=== PATIENT | female | born 1950 | race Caucasian/White ===

== ENCOUNTER 2020-10-25 09:49 | Inpatient (IN) ==
[2020-10-25] MEDS ORDERED: STAT IV STA (11:32)
[2020-10-25] MEDS ORDERED: EPINEPHrine INJ 1 MG/ML AMP IM PRN (11:32)
[2020-10-25] MEDS ORDERED: diphenhydrAMINE 50 MG/ML VIAL IV PRN (11:32)
[2020-10-25] MEDS ORDERED: ONDANSETRON INJ 2 MG/ML 2 ML VIAL IV PRN ×2 (11:32→18:38)
[2020-10-25] MEDS ORDERED: methylPREDNISolone 125 MG/2 ML VIAL IV PRN (11:32)
[2020-10-25] MEDS ORDERED: ACETAMINOPHEN 325 MG TAB PO PRN (11:32)
[2020-10-25] MEDS ORDERED: ALBUTEROL 0.083% NEBU SOLN 3 ML VIAL NEB STA ×2 (11:34→14:08)
--- NOTE | 2020-10-25 11:41 | Emergency Department Note ---
History of Present Illness General Chief complaint: Shortness of Breath/Dyspnea Stated complaint: COV+( OF WEDNESDAY) LOW OXYGEN LEVELS,SOB Time Seen by Provider: 10/25/20 11:15 History of Present Illness Maximum Pain Intensity: 0 This patient is a 69-year-old female who presents ambulatory to the emergency department for evaluation of difficulty breathing that started to get progressively worse particularly last night. The patient was diagnosed with Covid on 10/21, however she has been symptomatic since at least 10/15. She has been experiencing body aches and fever. Her cough and breathing have significantly worsened in the last 24 hours. The cough is nonproductive. She has tried Tylenol with minimal relief of her symptoms. She denies any underlying lung disease. She does not smoke. Lying flat seems to make her breathing worse. She has been self isolating. Home Medications Medication Instructions Recorded Confirmed Type losartan 100 mg tablet (Cozaar) 100 mg PO QAM 08/22/18 10/25/20 History multivitamin (Daily Multi-Vitamin) 1 tab PO QAM 08/22/18 10/25/20 History amlodipine 5 mg tablet (Norvasc) 5 mg PO QDD 10/25/20 10/25/20 History aspirin 81 mg tablet,delayed 81 mg PO HS 10/25/20 10/25/20 History release (Aspirin Low Dose) atenolol 25 mg tablet (Tenormin) 25 mg PO QAM 10/25/20 10/25/20 History atorvastatin 40 mg tablet (Lipitor) 40 mg PO QAM 10/25/20 10/25/20 History cinnamon bark 500 mg capsule 500 mg PO DAILY 10/25/20 10/25/20 History (Cinnamon) hydrochlorothiazide 25 mg tablet 25 mg PO QAM 10/25/20 10/25/20 History metformin 1,000 mg tablet 1,000 mg PO BID 10/25/20 10/25/20 History omega-3 fatty acids 1,000 mg PO BID 10/25/20 10/25/20 History triamcinolone acetonide 0.1 % 1 applic TOPICAL BID 10/25/20 10/25/20 History topical cream (Triderm) Allergies Allergy/AdvReac Type Severity Reaction Status Date / Time No Known Allergies Allergy Unknown ? Verified 10/25/20 14:49 Past Med/Surg History Medical History Chronic diastolic heart failure Diabetes mellitus, type II HTN (hypertension) Left bundle branch block Surgical History H/O aortic valve replacement prosthetic valve in 2008 at [facility] [place] S/P hip replacement Family History Other Heart disease Social History Smoking Status: Never smoker Hx Alcohol Use: No Hx Substance Use: No marital status: current occupational status: employed Feels Safe at Home: Yes Review of Systems A total of 10 systems reviewed and were otherwise negative Physical Exam Vital Signs Vital Signs - 24 hr 10/25/20 10:10 10/25/20 10:15 10/25/20 12:08 Temperature 36.9 C Temperature Source Temporal Artery Scan Pulse Rate 82 Pulse Rate [Apical] 76 Pulse Rate from SpO2 Sensor Respiratory Rate 24 18 Respiratory Effort / Characteristics Non-Labored Spontaneous Blood Pressure 153/76 H Blood Pressure Mean 101 Pulse Oximetry 88 L 2 L 94 Oxygen Delivery Method Room Air Nasal Cannula Nasal Cannula Oxygen Flow Rate 88 1 Sepsis Recent Fever Within 48 Hours No Sepsis New/Unexplained Change in Mental Status N/A Sepsis Action Taken by Nursing No Action Required 10/25/20 12:47 10/25/20 14:03 10/25/20 14:04 Temperature Temperature Source Pulse Rate 85 79 Pulse Rate [Apical] Pulse Rate from SpO2 Sensor 85 79 Respiratory Rate 19 18 Respiratory Effort / Characteristics Blood Pressure 133/74 Blood Pressure Mean 93 Pulse Oximetry 92 89 L 90 Oxygen Delivery Method Nasal Cannula Room Air Nasal Cannula Oxygen Flow Rate 1 1 Sepsis Recent Fever Within 48 Hours Sepsis New/Unexplained Change in Mental Status Sepsis Action Taken by Nursing 10/25/20 14:08 10/25/20 14:26 10/25/20 14:31 Temperature Temperature Source Pulse Rate 79 Pulse Rate [Apical] 77 Pulse Rate from SpO2 Sensor 80 Respiratory Rate 18 16 Respiratory Effort / Characteristics Non-Labored Spontaneous Blood Pressure 126/60 Blood Pressure Mean 82 Pulse Oximetry 95 96 Oxygen Delivery Method Nasal Cannula Nasal Cannula Nasal Cannula Oxygen Flow Rate 2 2 2 Sepsis Recent Fever Within 48 Hours Sepsis New/Unexplained Change in Mental Status Sepsis Action Taken by Nursing 10/25/20 15:00 Temperature Temperature Source Pulse Rate 81 Pulse Rate [Apical] Pulse Rate from SpO2 Sensor 81 Respiratory Rate 21 Respiratory Effort / Characteristics Blood Pressure 122/79 Blood Pressure Mean 93 Pulse Oximetry 92 Oxygen Delivery Method Nasal Cannula Oxygen Flow Rate 2 Sepsis Recent Fever Within 48 Hours Sepsis New/Unexplained Change in Mental Status Sepsis Action Taken by Nursing see below Constitutional WD/WN, vitals as above Eyes EOM intact bilaterally ENMT external ear and nose normal, oropharynx normal Neck trachea midline Respiratory Crackles at the bases bilaterally. No significant wheezing noted. Cardiovascular RRR, no murmur, no edema Gastrointestinal (Abdomen) normal bowel sounds, soft, nontender, no hepatosplenomegaly Musculoskeletal no cyanosis or clubbing, extremities motor strength 5/5 Skin no rashes, warm and dry Neurologic Alert and oriented x3. No focal motor deficits. Psychiatric Acting appropriately Course Course Patient was seen and examined Vital signs including blood pressure were reviewed medications list was verified with patient Labs were obtained, and a saline lock was established The patient was ordered an albuterol treatment Imaging was performed and reviewed The case was discussed with my supervising physician who is in agreement with my plan. The case was also discussed with pharmacy. The patient was reassessed. We had a lengthy conversation regarding possible monoclonal antibodies. The patient has been symptomatic for over 10 days; therefore, she is technically out of the window to receive antibodies. As the patient is hypoxic and appears to have pneumonitis on the x-ray, we decided hospitalist consultation was warranted. The patient was in agreement. The patient was given 1 further albuterol nebulizer treatment She remained stable in the emergency department. Consultations [facility] Administered Medications Discontinued Medications Acetaminophen (Acetaminophen 325 Mg Tab) 650 mg PO ONCE PRN PRN Reason: Pain/Headache Last Admin: 10/25/20 12:53 Dose: 650 mg Documented by: [id number] Albuterol (Albuterol 0.083% Nebu Soln 3 Ml Vial) 2.5 mg NEB NOW STA Stop: 10/25/20 11:35 Last Admin: 10/25/20 12:07 Dose: 2.5 mg Documented by: [id number] Albuterol (Albuterol 0.083% Nebu Soln 3 Ml Vial) 2.5 mg NEB NOW STA Stop: 10/25/20 14:09 Last Admin: 10/25/20 14:25 Dose: 2.5 mg Documented by: [id number] Bamlanivimab 700 mg/ETESEVIMAB (EUA) 1,400 mg/Sodium Chloride 160 mls @ 310 mls/hr IV NOW ONE; Protocol Stop: 10/25/20 12:23 Last Admin: 10/25/20 14:25 Dose: Not Given Documented by: [id number] Miscellaneous (Stat Iv) 1 ea N/A NOW STA Stop: 10/25/20 11:33 Last Admin: 10/25/20 12:51 Dose: 1 ea Documented by: [id number] Potassium Chloride (Potassium Chloride Crtab 20 Meq Tabcr) 40 meq PO NOW STA Stop: 10/25/20 13:44 Last Admin: 10/25/20 14:05 Dose: 40 meq Documented by: [id number] Sodium Chloride (Sodium Chloride 0.9% 10ml Flush) 30 ml IV ONCE ONE Stop: 10/25/20 12:04 Last Admin: 10/25/20 14:25 Dose: Not Given Documented by: [id number] Medical Decision Making Medical Records Attestation: I reviewed the patient's medical records. Laboratory Data Attestation: I reviewed the patient's lab results. Result diagrams: 10/25/20 12:42 10/25/20 12:42 Lab Results 10/25/20 10/25/20 10/25/20 Range/Units 12:42 12:42 14:52 WBC 3.95 L (4.8-10.8) K/uL RBC 4.56 (4.2-5.4) M/uL Hgb 13.3 (12.0-16.0) g/dL Hct 39.9 (37-47) % MCV 87.5 (80-100) fL MCH 29.2 (25-34) pg MCHC 33.3 (32-36) g/dL RDW Std Deviation 45.2 (36.4-46.3) fL RDW Coeff of Yvrose 14.2 (11.5-14.5) % Plt Count 178 (130-400) K/uL MPV 9.9 (7.4-10.4) fL Immature Gran % (Auto) 3.5 % Neut % (Auto) 70.9 % Lymph % (Auto) 18.2 % [place] % (Auto) 6.8 % Eos % (Auto) 0.3 % Baso % (Auto) 0.3 % Neut # (Auto) 2.80 (1.4-6.5) K/uL Lymph # (Auto) 0.72 L (1.2-3.4) K/uL [place] # (Auto) 0.27 (0.11-0.59) K/uL Eos # (Auto) 0.01 (0-0.5) K/uL Baso # (Auto) 0.01 (0-0.2) K/uL Immature Gran # (Auto) 0.14 H (0.00-0.02) K/uL Sodium 135 L (136-145) mmol/L Potassium 3.1 L (3.5-5.1) mmol/L Chloride 94 L (98-107) mmol/L Carbon Dioxide 35 H (21-32) mmol/L Anion Gap 6.0 (3-11) BUN 14 (7-18) mg/dl Creatinine 0.85 (0.6-1.2) mg/dl Est Cr Clr Drug Dosing 77.1 ml/min Est GFR ( Amer) 81.0 ml/min Est GFR (Non-Af Amer) 69.9 ml/min BUN/Creatinine Ratio 16.5 (10-20) Glucose 136 H (70-99) mg/dl Calcium 9.8 (8.5-10.1) mg/dl Total Bilirubin 0.3 (0.2-1) mg/dl AST 128 H (15-37) U/L ALT 91 H (12-78) U/L Alkaline Phosphatase 66 (45-117) U/L Total Protein 7.6 (6.4-8.2) gm/dl Albumin 2.9 L (3.4-5.0) gm/dl Globulin 4.7 H (2.5-4.0) gm/dl Albumin/Globulin Ratio 0.6 L (0.9-2) COVID-19 Eval Order Covid19 at [facility] SARS-CoV-2 (PCR) (Negative) 10/25/20 Range/Units 14:52 WBC (4.8-10.8) K/uL RBC (4.2-5.4) M/uL Hgb (12.0-16.0) g/dL Hct (37-47) % MCV (80-100) fL MCH (25-34) pg MCHC (32-36) g/dL RDW Std Deviation (36.4-46.3) fL RDW Coeff of Yvrose (11.5-14.5) % Plt Count (130-400) K/uL MPV (7.4-10.4) fL Immature Gran % (Auto) % Neut % (Auto) % Lymph % (Auto) % [place] % (Auto) % Eos % (Auto) % Baso % (Auto) % Neut # (Auto) (1.4-6.5) K/uL Lymph # (Auto) (1.2-3.4) K/uL [place] # (Auto) (0.11-0.59) K/uL Eos # (Auto) (0-0.5) K/uL Baso # (Auto) (0-0.2) K/uL Immature Gran # (Auto) (0.00-0.02) K/uL Sodium (136-145) mmol/L Potassium (3.5-5.1) mmol/L Chloride (98-107) mmol/L Carbon Dioxide (21-32) mmol/L Anion Gap (3-11) BUN (7-18) mg/dl Creatinine (0.6-1.2) mg/dl Est Cr Clr Drug Dosing ml/min Est GFR ( Amer) ml/min Est GFR (Non-Af Amer) ml/min BUN/Creatinine Ratio (10-20) Glucose (70-99) mg/dl Calcium (8.5-10.1) mg/dl Total Bilirubin (0.2-1) mg/dl AST (15-37) U/L ALT (12-78) U/L Alkaline Phosphatase (45-117) U/L Total Protein (6.4-8.2) gm/dl Albumin (3.4-5.0) gm/dl Globulin (2.5-4.0) gm/dl Albumin/Globulin Ratio (0.9-2) COVID-19 Eval Order SARS-CoV-2 (PCR) POSITIVE A* (Negative) Imaging Data Attestation: I personally reviewed and interpreted this imaging study as follows: Radiologist's Impression: Chest X-Ray 10/25/20 11:33 XR chest 1V portable HISTORY: Shortness of breath. covid COMPARISON: Chest 04/17/2008. FINDINGS: The cardiac silhouette is top normal in size. There are poststernotomy changes and a cardiac valve prosthesis. No pneumothorax. No pleural effusions. There is mild perihilar interstitial thickening most pronounced at the lung bases. No focal lung consolidations. IMPRESSION: Mild perihilar interstitial thickening most pronounced at the lung bases. This could be due to mild congestive change or an interstitial pneumonitis. ACT 112: Negative or not required by law. Electronically signed by: Cy Metcalf M.D. 10/25/2020 12:36 PM MDM Narrative Differential diagnosis: Bronchitis, viral pneumonia, bacterial pneumonia, acute respiratory failure, CHF, among others were considered This patient is a 69-year-old female who presents emergency department complaining of worsening cough and shortness of breath. She has been sick for at least 10 days. On exam, she was slightly hypoxic on room air. The patient does not typically wear oxygen. She had crackles in the bases bilaterally. The patient tested positive for Covid on 10/21. Her breathing did not get si gnificantly impaired until last night. She has been taking Tylenol with minimal relief of her symptoms. As the patient has been symptomatic for greater than 10 days, she is not a candidate for monoclonal antibodies. Her x-ray is consistent with pneumonitis. Labs revealed mild hypokalemia, which was repleted in the emergency department. As the patient is hypoxic and has other comorbidities, it was felt that hospitalist consultation was warranted. She will likely be admitted to the hospital for further treatment. Impression & Plan Acute respiratory failure, Pneumonitis, COVID Discharge Plan Visit Data Chief Complaint: Shortness of Breath/Dyspnea Stated Complaint: COV+( OF WEDNESDAY) LOW OXYGEN LEVELS,SOB ED Provider: Luis Pepper ED Midlevel Provider: Megan Amanda Discharge Problem: Acute respiratory failure, Pneumonitis, COVID Patient Disposition: Admitted As Inpatient Forms Stand Alone Forms: [facility] Stevie Prescriptions Prescriptions: No Action multivitamin [Daily Multi-Vitamin] Tablet 1 tab PO QAM RF: 0 losartan [Cozaar] 100 mg tablet 100 mg PO QAM RF: 0 atenolol [Tenormin] 25 mg tablet 25 mg PO QAM RF: 0 amlodipine [Norvasc] 5 mg tablet 5 mg PO QDD RF: 0 atorvastatin [Lipitor] 40 mg tablet 40 mg PO QAM RF: 0 aspirin [Aspirin Low Dose] 81 mg Tablet,Delayed Release (Dr/Ec) 81 mg PO HS RF: 0 triamcinolone acetonide [Triderm] 0.1 % cream 1 applic TOPICAL BID RF: 0 metformin 1,000 mg tablet 1,000 mg PO BID RF: 0 hydrochlorothiazide 25 mg tablet 25 mg PO QAM RF: 0 cinnamon bark [Cinnamon] 500 mg Capsule 500 mg PO DAILY RF: 0 [place] 3 Capsule 1,000 mg PO BID RF: 0 Referrals Referrals: Stan Ybarra MD [Primary Care Provider] -
[2020-10-25] MEDS ORDERED: SODIUM CHLORIDE 0.9% IV ONE (11:53)
[2020-10-25] MEDS ORDERED: BAMLANIVIMAB IV ONE (11:53)
[2020-10-25] MEDS ORDERED: ETESEVIMAB IV ONE (11:53)
[2020-10-25] MEDS ORDERED: 0.2 MICRON FILTER SET 1 EA IV ONE (12:03)
[2020-10-25] MEDS ORDERED: SODIUM CHLORIDE 0.9% 10ML FLUSH IV ONE (12:03)
--- NOTE | 2020-10-25 12:38 | XRay Report ---
XR chest 1V portable HISTORY: Shortness of breath. covid COMPARISON: Chest 04/17/2008. FINDINGS: The cardiac silhouette is top normal in size. There are poststernotomy changes and a cardia c valve prosthesis. No pneumothorax. No pleural effusions. There is mild perihilar interstitial thick ening most pronounced at the lung bases. No focal lung consolidations. IMPRESSION: Mild perihilar interstitial thickening most pronounced at the lung bases. This could be due to mild c ongestive change or an interstitial pneumonitis. ACT 112: Negative or not required by law. Electronically signed by: Cy Metcalf M.D. 10/25/2020 12:36 PM
[2020-10-25 13:15] LABS: Basophils # (auto) 0.01 K/uL (0-0.2); Basophils % (auto) 0.3 %; Eosinophils # (auto) 0.01 K/uL (0-0.5); Eosinophils % (auto) 0.3 %; Hematocrit (blood only) 39.9 % (37-47); Hemoglobin 13.3 g/dL (12.0-16.0); Immature Granulocytes # (auto) 0.14 K/uL (0.00-0.02); Immature Granulocytes % (auto) 3.5 %; Lymphocytes # (auto) 0.72 K/uL (1.2-3.4); Lymphocytes % (auto) 18.2 %; Mean Corpuscular Hemoglobin 29.2 pg (25-34); Mean Corpuscular Hgb Conc 33.3 g/dL (32-36); Mean Corpuscular Volume 87.5 fL (80-100); Mean Platelet Volume 9.9 fL (7.4-10.4); Monocytes # (auto) 0.27 K/uL (0.11-0.59); Monocytes % (auto) 6.8 %; Neutrophils % (auto) 70.9 %; Platelet Count 178 K/uL (130-400); RDW Coefficient of Variation 14.2 % (11.5-14.5); RDW Standard Deviation 45.2 fL (36.4-46.3); Red Blood Count 4.56 M/uL (4.2-5.4); White Blood Count 3.95 K/uL (4.8-10.8)
[2020-10-25 13:34] LABS: Albumin Level 2.9 gm/dl (3.4-5.0); BUN Creatinine Ratio 16.5 (10-20); Calcium 9.8 mg/dl (8.5-10.1); Creatinine Clr Calc Pharmacy 77.1 ml/min; Est GFR (Non-African American) 69.9 ml/min; Potassium 3.1 mmol/L (3.5-5.1)
[2020-10-25 13:37] LABS: Albumin Globulin Ratio 0.6 (0.9-2); Bilirubin,Total 0.3 mg/dl (0.2-1); Globulin 4.7 gm/dl (2.5-4.0); Total Protein 7.6 gm/dl (6.4-8.2)
[2020-10-25] MEDS ORDERED: POTASSIUM CHLORIDE CRTAB 20 MEQ TABCR PO STA (13:43)
--- NOTE | 2020-10-25 14:23 | Emergency Department Note ---
ED Visit Note Patient was seen by our PA/LABOR DELIVERY RN. I was involved in the patient's care and did evaluate the patient myself. I was involved in the care throughout the ER stay. The patient has a COVID-19 pneumonia. She presented hypoxic. She is about 10 days in the illness. She had an outpatient positive Covid result this week. Given her hypoxia, given her chest x-ray findings, hospitalization is warranted. .
--- NOTE | 2020-10-25 15:27 | History & Physical Report ---
Date of Service October 25, 2020 Assessment & Plan (1) Hypoxia: (2) Pneumonia due to COVID-19 virus: Plan: This is a 69-year-old female with PMH of chronic diastolic heart failure, type 2 diabetes, hypertension, dyslipidemia, chronic left bundle branch block, history of aortic valve replacement other medical problems listed below who presents with worsening shortness of breath and cough x10 days and was found to have hypoxia in setting of covid 19 and possible pneumonia. Developed symptoms 10 days ago after exposure to covid + daughter Initially hypoxic at 88%, improved to 92% on 2L NC O2 CXR with possible pneumonia - mild perihilar interstitial thickening most pronounced at the lung bases. This could be due to mild congestive change or an interstitial pneumonitis Will watch patient's volume status closely given history of chronic diastolic heart failure IV dexamethasone 6mg daily, supplemental O2 as needed, incentive spirometry, flutter valve Outside of window for Remdesivir with 10 days of symptoms Covid isolation precautions (3) Hypokalemia: Plan: In setting of poor PO intake, hctz Replacing, monitor with daily BMP (4) Transaminitis: Plan: AST 128, ALT 91, alk phos and tbili wnl Likely elevated in setting of covid infection Non-drinker, no nausea or abdominal pain Repeat CMP in AM (5) Diabetes mellitus, type II: Plan: A1c 7.4 in June 2020 Hold home agents SSI while in-patient, likely to have elevated BSG in setting of IV steroids BSG AC HS (6) HTN (hypertension): Plan: Normotensive. Continue amlodipine, atenolol, losartan (7) Chronic diastolic heart failure: Plan: History of AV replacement in 2008, TTE from 04/27 shows normal LV systolic function with EF 60-64% Holding hctz in setting of electrolyte abnormalities Monitor volume status closely (8) Left bundle branch block: Plan: Chronic DVT Ppx: SQ Lovenox Code status: FULL PCP: Amada Dispo: Admitted to PCU Patient seen in collaboration with Dr. Clifton. Please see addendum. History of Present Illness Chief Complaint: Shortness of breath, cough Primary Care Provider: Stan Ybarra MD This is a 69-year-old female with PMH of chronic diastolic heart failure, type 2 diabetes, hypertension, dyslipidemia, chronic left bundle branch block, history of aortic valve replacement other medical problems listed below who presents with worsening shortness of breath and cough x10 days. First developed a runny nose with congestion and dry cough as well as fever and body aches. Was exposed to covid positive daughter at beginning of the month. Patient tested positive in outpatient clinic on 10/21. Is not vaccinated. Cough has since become more productive and patient has been short of breath for past 3 days, prompting her to come to the hospital today. Still has sense of taste and smell. Decreased appetite but tolerating fluids. Has lost a few pounds over the past week. Denies any swelling in lower extremities. No headache, lightheadedness, chest pain, nausea, vomiting, abdominal pain, dysuria, diarrhea or constipation. Allergies Allergy/AdvReac Type Severity Reaction Status Date / Time No Known Allergies Allergy Unknown ? Verified 10/25/20 14:49 Home Medications Medication Instructions Recorded Confirmed Type losartan 100 mg tablet (Cozaar) 100 mg PO QAM 08/22/18 10/25/20 History multivitamin (Daily Multi-Vitamin) 1 tab PO QAM 08/22/18 10/25/20 History amlodipine 5 mg tablet (Norvasc) 5 mg PO QDD 10/25/20 10/25/20 History aspirin 81 mg tablet,delayed 81 mg PO HS 10/25/20 10/25/20 History release (Aspirin Low Dose) atenolol 25 mg tablet (Tenormin) 25 mg PO QAM 10/25/20 10/25/20 History atorvastatin 40 mg tablet (Lipitor) 40 mg PO QAM 10/25/20 10/25/20 History cinnamon bark 500 mg capsule 500 mg PO DAILY 10/25/20 10/25/20 History (Cinnamon) hydrochlorothiazide 25 mg tablet 25 mg PO QAM 10/25/20 10/25/20 History metformin 1,000 mg tablet 1,000 mg PO BID 10/25/20 10/25/20 History omega-3 fatty acids 1,000 mg PO BID 10/25/20 10/25/20 History triamcinolone acetonide 0.1 % 1 applic TOPICAL BID 10/25/20 10/25/20 History topical cream (Triderm) Past Med/Surg History Medical History Chronic diastolic heart failure Diabetes mellitus, type II HTN (hypertension) Left bundle branch block Surgical History [place] [facility] [place] Family History Other Heart disease Social History Smoking Status: Never smoker Second Hand Exposure: No; Do You Dip or Chew Tobacco: No; Tobacco Cessation Education Requested by Patient: No Hx Alcohol Use: No Hx Substance Use: No Preferred Language: Albanian Communication Ability: Effective 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 Physical Exam Physical Exam: (per Dr. Clifton) CONSTITUTIONAL: obese, vitals as above, generally well-appearing, NAD EYES: normal conjunctivae, no scleral icterus ENT: external ear and nose normal, oropharynx clear, MMM RESPIRATORY: min crackles at bases bilaterally, no wheezing or rales, good diaphragmatic excursion and moving air well. CARDIOVASCULAR: regular rate and rhythm, S1 and 2 heard without murmurs, gallops or rubs, no JVD, no peripheral edema GASTROINTESTINAL: soft, nontender, protuberant, ND MUSCULOSKELETAL: strength 5/5 throughout, head is normocephalic and atraumatic SKIN: warm and dry NEUROLOGIC: CN 2-12 grossly intact, normal cognition, normal speech, no tremor, no gross focal deficits. PSYCHIATRIC: alert cooperative and oriented to person, place and time. Euthymic mood, makes good eye contact, language grossly intact, recent and remote memory grossly intact. Results & Data Results & Data ([facility]) Vital Signs (Past 12 Hours) Vital Signs Temp Pulse Pulse Resp BP Pulse Ox 10/25/20 14:26 77 18 95 10/25/20 14:04 79 18 133/74 90 10/25/20 14:03 89 L 10/25/20 12:47 85 19 92 10/25/20 12:08 76 18 94 10/25/20 10:15 2 L 10/25/20 10:10 36.9 C 82 24 153/76 H 88 L Laboratory Results Short CBC 10/25/20 10/25/20 Range/Units 12:42 12:42 WBC 3.95 L (4.8-10.8) K/uL Hgb 13.3 (12.0-16.0) g/dL Hct 39.9 (37-47) % Plt Count 178 (130-400) K/uL AST 128 H (15-37) U/L BMP 10/25/20 12:42 Sodium 135 L Potassium 3.1 L Chloride 94 L Carbon Dioxide 35 H BUN 14 Creatinine 0.85 Glucose 136 H Calcium 9.8 Liver Function 10/25/20 Range/Units 12:42 Total Bilirubin 0.3 (0.2-1) mg/dl AST 128 H (15-37) U/L ALT 91 H (12-78) U/L Alkaline Phosphatase 66 (45-117) U/L Albumin 2.9 L (3.4-5.0) gm/dl Diagnostic Findings Chest X-Ray 10/25/20 11:33 XR chest 1V portable HISTORY: Shortness of breath. covid COMPARISON: Chest 04/17/2008. FINDINGS: The cardiac silhouette is top normal in size. There are poststernotomy changes and a cardiac valve prosthesis. No pneumothorax. No pleural effusions. There is mild perihilar interstitial thickening most pronounced at the lung bases. No focal lung consolidations. IMPRESSION: Mild perihilar interstitial thickening most pronounced at the lung bases. This could be due to mild congestive change or an interstitial pneumonitis. ACT 112: Negative or not required by law. Electronically signed by: Cy Metcalf M.D. 10/25/2020 12:36 PM Supervising Physician Co-Signing Physician Notes I have seen and examined the patient and have discussed the case with the provider above. I agree with the assessment and plan as stated. She just started becoming more dyspneic and ill in the last couple of days. Currently oxygenating 93% on 3 L/min. Risk factors include obesity and diabetes. We discussed the use of insulin in the hospital and as opposed to Metformin. She verbalized understanding. Denies any pain, chest pain, fever, chills, reports some chronic diarrhea. Otherwise she is hungry and wishes for some food. Physical exam as above. She is likely out of the window of benefit from remdesivir which can have side effects. We will continue with daily steroids per plan above. Encouraged to prone as often as possible. Continue to ambulate as tolerated. Supportive care as needed. Continue to wean oxygen as tolerated. DO Etienne
[2020-10-25] MEDS ORDERED: POTASSIUM CHLORIDE 10 MEQ TABCR PO STA (17:32)
[2020-10-25] MEDS ORDERED: DEXTROSE 50% 50 ML SYRINGE IV PRN (18:38)
[2020-10-25] MEDS ORDERED: CARBOHYDRATES FOR HYPOGLYCEMIA PO PRN (18:38)
[2020-10-25] MEDS ORDERED: GLUCAGON FOR INJ 1 MG VIAL SQ PRN (18:38)
[2020-10-25] MEDS ORDERED: GLUCOSE 40% GEL 15 GM TUBE PO PRN (18:38)
[2020-10-25] MEDS ORDERED: GLUCOSE 10 TABS/TUBE PO PRN (18:38)
[2020-10-25] MEDS ORDERED: POLYETHYLENE (MIRALAX) 17 GM PACK PO PRN (18:38)
[2020-10-25] MEDS: INSULIN ASPART 100 UNITS/ML 3 ML PEN SC SCH ×2 (19:29→22:25)
[2020-10-25] MEDS: ENOXAPARIN INJ 40 MG/0.4 ML SYR SQ SCH (19:40)
[2020-10-25] MEDS: amLODIPine BESYLATE 5 MG TAB PO SCH (19:40)
[2020-10-25] MEDS: ASPIRIN 81 MG ECTAB PO SCH (19:44)
[2020-10-25] MEDS: dexAMETHasone 6 MG in SYRINGE 0 ML IV SCH (19:46)
[2020-10-26 06:48] LABS: Hematocrit (blood only) 38.5 % (37-47); Hemoglobin 12.6 g/dL (12.0-16.0); Mean Corpuscular Hgb Conc 32.7 g/dL (32-36); Mean Corpuscular Volume 88.7 fL (80-100); Mean Platelet Volume 9.8 fL (7.4-10.4); Platelet Count 194 K/uL (130-400); RDW Coefficient of Variation 13.9 % (11.5-14.5); RDW Standard Deviation 45.7 fL (36.4-46.3); Red Blood Count 4.34 M/uL (4.2-5.4); White Blood Count 3.26 K/uL (4.8-10.8)
[2020-10-26 07:32] LABS: Albumin Globulin Ratio 0.6 (0.9-2); Albumin Level 2.7 gm/dl (3.4-5.0); BUN Creatinine Ratio 19.3 (10-20); Bilirubin,Total 0.9 mg/dl (0.2-1); C Reactive Protein 10.2 mg/dl (0-0.29); Calcium 9.1 mg/dl (8.5-10.1); Creatinine Clr Calc Pharmacy 108.1 ml/min; Est GFR (African American) 107.2 ml/min; Est GFR (Non-African American) 92.5 ml/min; Globulin 4.7 gm/dl (2.5-4.0); Magnesium 1.5 mg/dl (1.8-2.4); Potassium 3.7 mmol/L (3.5-5.1); Total Protein 7.4 gm/dl (6.4-8.2)
[2020-10-26] MEDS: INSULIN ASPART 100 UNITS/ML 3 ML PEN SC SCH ×4 (09:08→21:45)
[2020-10-26] MEDS: dexAMETHasone 6 MG in SYRINGE 0 ML IV SCH (09:08)
[2020-10-26] MEDS: LOSARTAN POTASSIUM 50 MG TAB PO SCH (09:09)
[2020-10-26] MEDS: ENOXAPARIN INJ 40 MG/0.4 ML SYR SQ SCH ×2 (09:09→19:36)
[2020-10-26] MEDS: ATENOLOL 25 MG TABLET PO SCH (09:09)
[2020-10-26] MEDS: MULTIVITAMIN TAB PO SCH (09:09)
[2020-10-26] MEDS: ATORVASTATIN 40 MG TAB PO SCH (09:09)
[2020-10-26] MEDS: FUROSEMIDE 20 MG in SYRINGE 0 ML IV SCH (09:10)
[2020-10-26 10:09] LABS: Estimated Average Glucose 174 mg/dl; Hemoglobin A1C 7.7 % (4.5-5.6)
--- NOTE | 2020-10-26 14:45 | Hospitalist Progress Note ---
Date of Service October 26, 2020 Assessment & Plan (1) Pneumonia due to COVID-19 virus: Plan: Doing well on current regimen of dexamethasone and supplemental oxygen. Encouraged to prone and continue incentive spirometer and flutter valve with ambulation as tolerated. Wean oxygen as tolerated. Outside the window for remdesivir after 10 days of symptoms. Continue Covid isolation precautions. Utilize Lasix to make her net negative. (2) Hypoxia: Plan: Secondary to above, continue plan per #1. (3) Hypokalemia: Plan: Home HCTZ held, continue with Lasix and potassium supplementation as needed. (4) Transaminitis: Plan: Thought secondary to Covid, continue CMP monitoring as outpatient once infection has cleared. There is no abnormal clinical findings consistent with a biliary infection. (5) Diabetes mellitus, type II: Plan: A1C 7.7 reflects poor control for her age. Cont with insulin with carb coverage and correction factor as needed. Expect insulin needs to increase on the decad lucinda. (6) HTN (hypertension): Plan: At goal. 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 TTE from 04/27 reveals EF of 60 to 64%. Continue holding HCTZ and utilizing Lasix for immediate volume management. Replace electrolytes as needed. (8) Left bundle branch block: Plan: Chronic (9) Obesity: (10) DVT prophylaxis: Plan: Lovenox Full Dispo-to home when medically stable and off oxygen Missy Clifton DO [facility] Hospitalist Admission and Anticipated Discharge Date Admission Date: October 25, 2020 Subjective 69-year-old female admitted with Covid pneumonia. Persistent hypoxia. Patient is somewhat hesitant to prone. Reports dyspnea and initial symptoms have improved. Minimal respiratory symptoms. Tolerating p.o. Afebrile. Review of Systems Review of Systems: At least ten systems were reviewed and negative except as indicated in HPI above. Physical Exam Physical Exam: CONSTITUTIONAL: obese, vitals as above, generally well- appearing, NAD EYES: normal conjunctivae, no scleral icterus ENT: external ear and nose normal, oropharynx clear, MMM RESPIRATORY: min crackles at bases bilaterally-improved, no wheezing or rales, good diaphragmatic excursion and moving air well. CARDIOVASCULAR: regular rate and rhythm, S1 and 2 heard without murmurs, gallops or rubs, no JVD, no peripheral edema GASTROINTESTINAL: soft, nontender, protuberant, ND MUSCULOSKELETAL: strength 5/5 throughout, head is normocephalic and atraumatic SKIN: warm and dry NEUROLOGIC: CN 2-12 grossly intact, normal cognition, normal speech, no tremor, no gross focal deficits. PSYCHIATRIC: alert cooperative and oriented to person, place and time. Euthymic mood, makes good eye contact, language grossly intact, recent and remote memory grossly intact. Results & Data Results & Data ([facility]) Vital Signs (Past 12 Hours) Vital Signs Temp Pulse Pulse Resp BP Pulse Ox 10/26/20 12:16 72 18 133/74 93 10/26/20 12:00 36.7 C 68 20 138/74 94 10/26/20 07:51 74 10/26/20 07:33 37.2 C 74 24 127/72 90 10/26/20 03:35 36.8 C 83 22 136/88 94 Laboratory Results Short CBC 10/26/20 Range/Units 06:02 WBC 3.26 L (4.8-10.8) K/uL Hgb 12.6 (12.0-16.0) g/dL Hct 38.5 (37-47) % Plt Count 194 (130-400) K/uL BMP 10/26/20 06:02 Sodium 134 L Potassium 3.7 D Chloride 96 L Carbon Dioxide 31 BUN 12 Creatinine 0.61 Glucose 226 H Calcium 9.1 Liver Function 10/26/20 Range/Units 06:02 Total Bilirubin 0.9 D (0.2-1) mg/dl AST 108 H (15-37) U/L ALT 85 H (12-78) U/L Alkaline Phosphatase 61 (45-117) U/L Albumin 2.7 L (3.4-5.0) gm/dl Medications Administered Current Inpatient Medications Acetaminophen (Acetaminophen 325 Mg Tab) 650 mg PO Q4H PRN PRN Reason: Pain or Fever Stop: 11/24/20 18:37 Amlodipine Besylate (Amlodipine Besylate 5 Mg Tab) 5 mg PO QDD [facility] Stop: 11/24/20 18:37 Last Admin: 10/25/20 19:40 Dose: 5 mg Documented by: Aspirin (Aspirin 81 Mg Ectab) 81 mg PO HS [facility] Stop: 11/24/20 20:59 Last Admin: 10/25/20 19:44 Dose: 81 mg Documented by: Atenolol (Atenolol 25 Mg Tablet) 25 mg PO QAM [facility] Stop: 11/25/20 08:59 Last Admin: 10/26/20 09:09 Dose: 25 mg Documented by: Atorvastatin Calcium (Atorvastatin 40 Mg Tab) 40 mg PO QAM [facility] Stop: 11/25/20 08:59 Last Admin: 10/26/20 09:09 Dose: 40 mg Documented by: Dextrose (Dextrose 50% 50 Ml Syringe) 25 - 50 ml IV UD PRN; Protocol PRN Reason: Hypoglycemia Protocol Stop: 11/24/20 18:37 Enoxaparin Sodium (Enoxaparin Inj 40 Mg/0.4 Ml Syr) 40 mg SQ Q12H [facility] Stop: 11/24/20 19:59 Last Admin: 10/26/20 09:09 Dose: 40 mg Documented by: Glucagon (Glucagon For Inj 1 Mg Vial) 1 mg SQ UD PRN; Protocol PRN Reason: Hypoglycemia Protocol Stop: 11/24/20 18:37 Glucose (Glucose 10 Tabs/Tube) 4 - 8 tabs PO UD PRN; Protocol PRN Reason: Hypoglycemia Protocol Stop: 11/24/20 18:37 Glucose (Glucose 40% Gel 15 Gm Tube) 15 - 30 gm PO UD PRN; Protocol PRN Reason: Hypoglycemia Protocol Stop: 11/24/20 18:37 Dexamethasone 6 mg/ Syringe 1.5 mls @ 1 mls/min IV DAILY [facility] Stop: 11/03/20 09:02 Last Admin: 10/26/20 09:08 Dose: 1 mls/min Documented by: Furosemide 20 mg/ Syringe 2 mls @ 4 mls/min IV QAM [facility] Stop: 11/25/20 08:59 Last Admin: 10/26/20 09:10 Dose: 4 mls/min Documented by: Insulin Aspart (Insulin Aspart 100 Units/Ml 3 Ml Pen) 0 units SC ACHS [facility] Stop: 11/24/20 18:37 Last Admin: 10/26/20 13:04 Dose: 11 units Documented by: Losartan Potassium (Losartan Potassium 50 Mg Tab) 100 mg PO QAM [facility] Stop: 11/25/20 08:59 Last Admin: 10/26/20 09:09 Dose: 100 mg Documented by: Methylprednisolone (Methylprednisolone 125 Mg/2 Ml Vial) 125 mg IV ONCE PRN PRN Reason: Stridor/New Wheezing/SOB Miscellaneous (Carbohydrates For Hypoglycemia ) 15 - 30 gm PO UD PRN PRN Reason: Hypoglycemia Protocol Stop: 11/24/20 18:37 Multivitamins ([facility]ivitamin Tab) [facility] Stop: 11/25/20 08:59 Last Admin: 10/26/20 09:09 Dose: 1 tab Documented by: Ondansetron HCl (Ondansetron Inj 2 Mg/Ml 2 Ml Vial) 4 mg IV Q6H PRN PRN Reason: Nausea Stop: 11/24/20 18:37 Polyethylene Glycol (Polyethylene (Miralax) 17 Gm Pack) 17 gm PO DAILY PRN PRN Reason: Constipation Stop: 11/24/20 18:37
[2020-10-26] MEDS: amLODIPine BESYLATE 5 MG TAB PO SCH (17:47)
[2020-10-26] MEDS: ASPIRIN 81 MG ECTAB PO SCH (19:36)
[2020-10-27 06:29] LABS: Hematocrit (blood only) 39.8 % (37-47); Hemoglobin 12.9 g/dL (12.0-16.0); Mean Corpuscular Hemoglobin 28.8 pg (25-34); Mean Corpuscular Hgb Conc 32.4 g/dL (32-36); Mean Corpuscular Volume 88.8 fL (80-100); Mean Platelet Volume 9.8 fL (7.4-10.4); Platelet Count 255 K/uL (130-400); RDW Coefficient of Variation 13.7 % (11.5-14.5); RDW Standard Deviation 45.1 fL (36.4-46.3); Red Blood Count 4.48 M/uL (4.2-5.4)
[2020-10-27 06:53] LABS: Albumin Level 2.7 gm/dl (3.4-5.0); BUN Creatinine Ratio 26.1 (10-20); Calcium 8.9 mg/dl (8.5-10.1); Creatinine Clr Calc Pharmacy 102.3 ml/min; Est GFR (African American) 105.5 ml/min; Potassium 3.4 mmol/L (3.5-5.1)
[2020-10-27 06:55] LABS: Albumin Globulin Ratio 0.6 (0.9-2); Bilirubin,Total 0.4 mg/dl (0.2-1); Globulin 4.4 gm/dl (2.5-4.0); Total Protein 7.1 gm/dl (6.4-8.2)
[2020-10-27] MEDS ORDERED: POTASSIUM CHLORIDE CRTAB 20 MEQ TABCR PO STA (08:14)
[2020-10-27] MEDS: ATORVASTATIN 40 MG TAB PO SCH (08:55)
[2020-10-27] MEDS: MULTIVITAMIN TAB PO SCH (08:55)
[2020-10-27] MEDS: ATENOLOL 25 MG TABLET PO SCH (08:55)
[2020-10-27] MEDS: FUROSEMIDE 20 MG in SYRINGE 0 ML IV SCH (08:55)
[2020-10-27] MEDS: LOSARTAN POTASSIUM 50 MG TAB PO SCH (08:55)
[2020-10-27] MEDS: dexAMETHasone 6 MG in SYRINGE 0 ML IV SCH (08:55)
[2020-10-27] MEDS: INSULIN ASPART 100 UNITS/ML 3 ML PEN SC SCH ×3 (08:56→18:03)
[2020-10-27] MEDS: ENOXAPARIN INJ 40 MG/0.4 ML SYR SQ SCH ×2 (08:56→20:52)
[2020-10-27] MEDS: INSULIN GLARGINE SOLOSTAR 100 UNITS/ML 3 ML PEN SC SCH ×2 (09:27→21:18)
--- NOTE | 2020-10-27 11:09 | Hospitalist Progress Note ---
Date of Service October 27, 2020 Assessment & Plan (1) Pneumonia due to COVID-19 virus: Plan: Doing well on current regimen of dexamethasone and supplemental oxygen. Encouraged to prone and continue incentive spirometer and flutter valve with ambulation as tolerated. Wean oxygen as tolerated. Outside the window for remdesivir after 10 days of symptoms. Continue Covid isolation precautions. Utilize Lasix to make her net negative. Cough treated with Robitussin AC PRN and scheduled Mucinex. (2) Hypoxia: Plan: Secondary to above, continue plan per #1. (3) Hypokalemia: Plan: Home HCTZ held, continue with Lasix and potassium supplementation as needed. (4) Transaminitis: Plan: Thought secondary to Covid, continue CMP monitoring as outpatient once infection has cleared. There is no abnormal clinical findings consistent with a biliary infection. (5) Diabetes mellitus, type II: Plan: A1C 7.7 reflects poor control for her age. Cont with insulin with carb coverage and correction factor as needed. Expect insulin needs to increase on the decadron. (6) HTN (hypertension): Plan: At goal. 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 TTE from 04/27 reveals EF of 60 to 64%. Continue holding HCTZ and utilizing Lasix for immediate volume management. Replace electrolytes as needed. (8) Left bundle branch block: Plan: Chronic (9) Obesity: (10) DVT prophylaxis: Plan: Lovenox Full Dispo-to home when medically stable and off oxygen [facility] and Anticipated Discharge Date Admission Date: October 25, 2020 Subjective 69-year-old female admitted with Covid pneumonia. Persistent hypoxia. Reports dyspnea and initial symptoms have improved. Minimal respiratory symptoms. Tolerating p.o. Afebrile. +coughing. Review of Systems Review of Systems: At least ten systems were reviewed and negative except as indicated in HPI above. Physical Exam Physical Exam: CONSTITUTIONAL: obese, vitals as above, generally well- appearing, NAD EYES: normal conjunctivae, no scleral icterus ENT: external ear and nose normal, oropharynx clear, MMM RESPIRATORY: min crackles at bases bilaterally-improved, no wheezing or rales, good diaphragmatic excursion and moving air well. CARDIOVASCULAR: regular rate and rhythm, S1 and 2 heard without murmurs, gallops or rubs, no JVD, no peripheral edema GASTROINTESTINAL: soft, nontender, protuberant, ND MUSCULOSKELETAL: strength 5/5 throughout, head is normocephalic and atraumatic SKIN: warm and dry NEUROLOGIC: CN 2-12 grossly intact, normal cognition, normal speech, no tremor, no gross focal deficits. PSYCHIATRIC: alert cooperative and oriented to person, place and time. Euthymic mood, makes good eye contact, language grossly intact, recent and remote memory grossly intact. Results & Data Results & Data ([facility]) Vital Signs (Past 12 Hours) Vital Signs Temp Pulse Pulse Pulse Resp BP Pulse Ox 10/27/20 07:30 68 10/27/20 07:24 36.9 C 74 18 134/85 90 10/27/20 04:16 36.7 C 75 16 123/58 L 96 Laboratory Results Short CBC 10/27/20 Range/Units 05:49 WBC 6.00 (4.8-10.8) K/uL Hgb 12.9 (12.0-16.0) g/dL Hct 39.8 (37-47) % Plt Count 255 (130-400) K/uL BMP 10/27/20 05:49 Sodium 135 L Potassium 3.4 L Chloride 97 L Carbon Dioxide 31 BUN 17 Creatinine 0.64 Glucose 215 H Calcium 8.9 Liver Function 10/27/20 Range/Units 05:49 Total Bilirubin 0.4 D (0.2-1) mg/dl AST 64 H (15-37) U/L ALT 71 (12-78) U/L Alkaline Phosphatase 59 (45-117) U/L Albumin 2.7 L (3.4-5.0) gm/dl Medications Administered Current Inpatient Medications Acetaminophen (Acetaminophen 325 Mg Tab) 650 mg PO Q4H PRN PRN Reason: Pain or Fever Stop: 11/24/20 18:37 Amlodipine Besylate (Amlodipine Besylate 5 Mg Tab) 5 mg PO QDD [facility] Stop: 11/24/20 18:37 Last Admin: 10/26/20 17:47 Dose: Not Given Documented by: Aspirin (Aspirin 81 Mg Ectab) 81 mg PO HS [facility] Stop: 11/24/20 20:59 Last Admin: 10/26/20 19:36 Dose: 81 mg Documented by: Atenolol (Atenolol 25 Mg Tablet) 25 mg PO QAM [facility] Stop: 11/25/20 08:59 Last Admin: 10/27/20 08:55 Dose: 25 mg Documented by: Atorvastatin Calcium (Atorvastatin 40 Mg Tab) 40 mg PO QAM [facility] Stop: 11/25/20 08:59 Last Admin: 10/27/20 08:55 Dose: 40 mg Documented by: Dextrose (Dextrose 50% 50 Ml Syringe) 25 - 50 ml IV UD PRN; Protocol PRN Reason: Hypoglycemia Protocol Stop: 11/24/20 18:37 Enoxaparin Sodium (Enoxaparin Inj 40 Mg/0.4 Ml Syr) 40 mg SQ Q12H [facility] Stop: 11/24/20 19:59 Last Admin: 10/27/20 08:56 Dose: 40 mg Documented by: Glucagon (Glucagon For Inj 1 Mg Vial) 1 mg SQ UD PRN; Protocol PRN Reason: Hypoglycemia Protocol Stop: 11/24/20 18:37 Glucose (Glucose 10 Tabs/Tube) 4 - 8 tabs PO UD PRN; Protocol PRN Reason: Hypoglycemia Protocol Stop: 11/24/20 18:37 Glucose (Glucose 40% Gel 15 Gm Tube) 15 - 30 gm PO UD PRN; Protocol PRN Reason: Hypoglycemia Protocol Stop: 11/24/20 18:37 Dexamethasone 6 mg/ Syringe 1.5 mls @ 1 mls/min IV DAILY [facility] Stop: 11/03/20 09:02 Last Admin: 10/27/20 08:55 Dose: 1 mls/min Documented by: Furosemide 20 mg/ Syringe 2 mls @ 4 mls/min IV QAM [facility] Stop: 11/25/20 08:59 Last Admin: 10/27/20 08:55 Dose: 4 mls/min Documented by: Insulin Aspart (Insulin Aspart 100 Units/Ml 3 Ml Pen) 0 units SC ACHS [facility] Stop: 11/24/20 18:37 Last Admin: 10/27/20 08:56 Dose: 11 units Documented by: Insulin Glargine (Insulin Glargine Solostar 100 Units/Ml 3 Ml Pen) 25 units SC BID [facility] Stop: 11/26/20 08:59 Last Admin: 10/27/20 09:27 Dose: 25 units Documented by: Losartan Potassium (Losartan Potassium 50 Mg Tab) 100 mg PO QAM [facility] Stop: 11/25/20 08:59 Last Admin: 10/27/20 08:55 Dose: 100 mg Documented by: Methylprednisolone (Methylprednisolone 125 Mg/2 Ml Vial) 125 mg IV ONCE PRN PRN Reason: Stridor/New Wheezing/SOB Miscellaneous (Carbohydrates For Hypoglycemia ) 15 - 30 gm PO UD PRN PRN Reason: Hypoglycemia Protocol Stop: 11/24/20 18:37 Multivitamins (Multivitamin Tab) 1 tab PO [facility] Stop: 11/25/20 08:59 Last Admin: 10/27/20 08:55 Dose: 1 tab Documented by: Ondansetron HCl (Ondansetron Inj 2 Mg/Ml 2 Ml Vial) 4 mg IV Q6H PRN PRN Reason: Nausea Stop: 11/24/20 18:37 Polyethylene Glycol (Polyethylene (Miralax) 17 Gm Pack) 17 gm PO DAILY PRN PRN Reason: Constipation Stop: 11/24/20 18:37
[2020-10-27] MEDS: amLODIPine BESYLATE 5 MG TAB PO SCH (17:51)
[2020-10-27] MEDS: ASPIRIN 81 MG ECTAB PO SCH (20:52)
[2020-10-27] MEDS: guaiFENesin 600 MG TABCR PO SCH (20:53)
[2020-10-27] MEDS: ASCORBIC ACID 500 MG TAB PO SCH (20:53)
[2020-10-28] MEDS: INSULIN ASPART 100 UNITS/ML 3 ML PEN SC SCH ×5 (04:20→21:17)
[2020-10-28 07:02] LABS: Hematocrit (blood only) 38.6 % (37-47); Hemoglobin 12.7 g/dL (12.0-16.0); Mean Corpuscular Hemoglobin 29.1 pg (25-34); Mean Corpuscular Hgb Conc 32.9 g/dL (32-36); Mean Corpuscular Volume 88.3 fL (80-100); Mean Platelet Volume 9.9 fL (7.4-10.4); Nucleated RBC # (auto) 0.02 K/uL (0-0); Nucleated RBC % (auto) 0.2 %; Platelet Count 321 K/uL (130-400); RDW Coefficient of Variation 13.9 % (11.5-14.5); RDW Standard Deviation 45.1 fL (36.4-46.3); Red Blood Count 4.37 M/uL (4.2-5.4); White Blood Count 8.77 K/uL (4.8-10.8)
[2020-10-28 07:38] LABS: BUN Creatinine Ratio 29.9 (10-20); Calcium 8.6 mg/dl (8.5-10.1); Creatinine Clr Calc Pharmacy 94.6 ml/min; Est GFR (African American) 102.9 ml/min; Est GFR (Non-African American) 88.8 ml/min; Potassium 3.6 mmol/L (3.5-5.1)
[2020-10-28 07:39] LABS: C Reactive Protein 2.61 mg/dl (0-0.29)
[2020-10-28] MEDS: FUROSEMIDE 20 MG in SYRINGE 0 ML IV SCH (08:36)
[2020-10-28] MEDS: guaiFENesin 600 MG TABCR PO SCH ×2 (08:37→20:47)
[2020-10-28] MEDS: ATORVASTATIN 40 MG TAB PO SCH (08:37)
[2020-10-28] MEDS: dexAMETHasone 6 MG in SYRINGE 0 ML IV SCH (08:37)
[2020-10-28] MEDS: CHOLECALCIFEROL 1,000 UNITS 25 MCG TAB PO SCH (08:37)
[2020-10-28] MEDS: ASCORBIC ACID 500 MG TAB PO SCH ×2 (08:37→20:47)
[2020-10-28] MEDS: ENOXAPARIN INJ 40 MG/0.4 ML SYR SQ SCH ×2 (08:37→20:46)
[2020-10-28] MEDS: ZINC SULFATE 220 MG CAPSULE PO SCH (08:38)
[2020-10-28] MEDS: LOSARTAN POTASSIUM 50 MG TAB PO SCH (08:38)
[2020-10-28] MEDS: ATENOLOL 25 MG TABLET PO SCH (08:38)
[2020-10-28] MEDS: MULTIVITAMIN TAB PO SCH (08:38)
[2020-10-28] MEDS: INSULIN GLARGINE SOLOSTAR 100 UNITS/ML 3 ML PEN SC SCH ×2 (08:39→21:18)
[2020-10-28] MEDS: amLODIPine BESYLATE 5 MG TAB PO SCH (17:16)
--- NOTE | 2020-10-28 19:59 | Hospitalist Progress Note ---
Date of Service October 28, 2020 Assessment & Plan (1) Pneumonia due to COVID-19 virus: Plan: Doing well on current regimen of dexamethasone and supplemental oxygen. Encouraged to prone and continue incentive spirometer and flutter valve with ambulation as tolerated. Wean oxygen as tolerated. Outside the window for remdesivir after 10 days of symptoms. Continue Covid isolation precautions. Utilize Lasix to make her net negative. Cough treated with Robitussin AC PRN and scheduled Mucinex. (2) Hypoxia: Plan: Secondary to above, continue plan per #1. (3) Hypokalemia: Plan: Home HCTZ held, continue with Lasix and potassium supplementation as needed. (4) Transaminitis: Plan: Thought secondary to Covid, continue CMP monitoring as outpatient once infection has cleared. There is no abnormal clinical findings consistent with a biliary infection. (5) Diabetes mellitus, type II: Plan: A1C 7.7 reflects poor control for her age. Cont with insulin with carb coverage and correction factor as needed. Expect insulin needs to increase on the decadron. (6) HTN (hypertension): Plan: At goal. 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 TTE from 04/27 reveals EF of 60 to 64%. Continue holding HCTZ and utilizing Lasix for immediate volume management. Replace electrolytes as needed. (8) Left bundle branch block: Plan: Chronic (9) Obesity: (10) DVT prophylaxis: Plan: Lovenox Full Dispo-to home when medically stable and off oxygen Missy Clifton DO [facility] Hospitalist Admission and Anticipated Discharge Date Admission Date: October 25, 2020 Subjective 69-year-old female admitted with Covid pneumonia. Persistent hypoxia. Reports dyspnea and initial symptoms have improved. Minimal respiratory symptoms. Tolerating p.o. Afebrile. Review of Systems Review of Systems: At least ten systems were reviewed and negative except as indicated in HPI above. Physical Exam Physical Exam: CONSTITUTIONAL: obese, vitals as above, generally well- appearing, NAD EYES: normal conjunctivae, no scleral icterus ENT: external ear and nose normal, oropharynx clear, MMM RESPIRATORY: CTAB, no wheezing or rales, good diaphragmatic excursion and moving air well. CARDIOVASCULAR: regular rate and rhythm, S1 and 2 heard without murmurs, gallops or rubs, no peripheral edema GASTROINTESTINAL: soft, nontender, protuberant, ND MUSCULOSKELETAL: strength 5/5 throughout, head is normocephalic and atraumatic SKIN: warm and dry NEUROLOGIC: CN 2-12 grossly intact, normal cognition, normal speech, no tremor, no gross focal deficits. PSYCHIATRIC: alert cooperative and oriented to person, place and time. Euthymic mood, makes good eye contact, language grossly intact, recent and remote memory grossly intact. Results & Data Results & Data ([facility]) Vital Signs (Past 12 Hours) Vital Signs Temp Pulse Pulse Resp BP Pulse Ox 10/28/20 19:34 36.8 C 10/28/20 19:15 79 22 129/80 91 10/28/20 15:09 37.1 C 79 21 137/82 95 10/28/20 11:28 36.6 C 69 18 143/83 H 90 Laboratory Results Short CBC 10/28/20 Range/Units 06:17 WBC 8.77 (4.8-10.8) K/uL Hgb 12.7 (12.0-16.0) g/dL Hct 38.6 (37-47) % Plt Count 321 (130-400) K/uL BMP 10/28/20 06:17 Sodium 137 Potassium 3.6 Chloride 100 Carbon Dioxide 29 BUN 21 H Creatinine 0.69 Glucose 158 H Calcium 8.6 Medications Administered Current Inpatient Medications Acetaminophen (Acetaminophen 325 Mg Tab) 650 mg PO Q4H PRN PRN Reason: Pain or Fever Stop: 11/24/20 18:37 Amlodipine Besylate (Amlodipine Besylate 5 Mg Tab) 5 mg PO QDD [facility] Stop: 11/24/20 18:37 Last Admin: 10/28/20 17:16 Dose: 5 mg Documented by: Ascorbic Acid (Ascorbic Acid 500 Mg Tab) 500 mg PO BID [facility] Stop: 11/26/20 20:59 Last Admin: 10/28/20 08:37 Dose: 500 mg Documented by: Aspirin (Aspirin 81 Mg Ectab) 81 mg PO HS [facility] Stop: 11/24/20 20:59 Last Admin: 10/27/20 20:52 Dose: 81 mg Documented by: Atenolol (Atenolol 25 Mg Tablet) 25 mg PO QAM [facility] Stop: 11/25/20 08:59 Last Admin: 10/28/20 08:38 Dose: 25 mg Documented by: Atorvastatin Calcium (Atorvastatin 40 Mg Tab) 40 mg PO QAM [facility] Stop: 11/25/20 08:59 Last Admin: 10/28/20 08:37 Dose: 40 mg Documented by: Dextrose (Dextrose 50% 50 Ml Syringe) 25 - 50 ml IV UD PRN; Protocol PRN Reason: Hypoglycemia Protocol Stop: 11/24/20 18:37 Enoxaparin Sodium (Enoxaparin Inj 40 Mg/0.4 Ml Syr) 40 mg SQ Q12H [facility] Stop: 11/24/20 19:59 Last Admin: 10/28/20 08:37 Dose: 40 mg Documented by: Glucagon (Glucagon For Inj 1 Mg Vial) 1 mg SQ UD PRN; Protocol PRN Reason: Hypoglycemia Protocol Stop: 11/24/20 18:37 Glucose (Glucose 10 Tabs/Tube) 4 - 8 tabs PO UD PRN; Protocol PRN Reason: Hypoglycemia Protocol Stop: 11/24/20 18:37 Glucose (Glucose 40% Gel 15 Gm Tube) 15 - 30 gm PO UD PRN; Protocol PRN Reason: Hypoglycemia Protocol Stop: 11/24/20 18:37 Guaifenesin (Guaifenesin 600 Mg Tabcr) 600 mg PO Q12 [facility] Stop: 11/26/20 20:59 Last Admin: 10/28/20 08:37 Dose: 600 mg Documented by: Guaifenesin/Codeine Phosphate (Guaifenesin/Codeine 200mg/20mg 10ml Udc) 10 ml PO Q6H PRN PRN Reason: Cough Stop: 11/26/20 20:59 Dexamethasone 6 mg/ Syringe 1.5 mls @ 1 mls/min IV DAILY [facility] Stop: 11/03/20 09:02 Last Admin: 10/28/20 08:37 Dose: 1 mls/min Documented by: Furosemide 20 mg/ Syringe 2 mls @ 4 mls/min IV QAM [facility] Stop: 11/25/20 08:59 Last Admin: 10/28/20 08:36 Dose: 4 mls/min Documented by: Insulin Aspart (Insulin Aspart 100 Units/Ml 3 Ml Pen) 0 units SC ACHS [facility] Stop: 11/24/20 18:37 Last Admin: 10/28/20 17:16 Dose: 17 units Documented by: Insulin Glargine (Insulin Glargine Solostar 100 Units/Ml 3 Ml Pen) 25 units SC BID [facility] Stop: 11/26/20 08:59 Last Admin: 10/28/20 08:39 Dose: 25 units Documented by: Losartan Potassium (Losartan Potassium 50 Mg Tab) 100 mg PO [facility] Stop: 11/25/20 08:59 Last Admin: 10/28/20 08:38 Dose: 100 mg Documented by: Methylprednisolone (Methylprednisolone 125 Mg/2 Ml Vial) 125 mg IV ONCE PRN PRN Reason: Stridor/New Wheezing/SOB Miscellaneous (Carbohydrates For Hypoglycemia ) 15 - 30 gm PO UD PRN PRN Reason: Hypoglycemia Protocol Stop: 11/24/20 18:37 Multivitamins (Multivitamin Tab) 1 tab PO [facility] Stop: 11/25/20 08:59 Last Admin: 10/28/20 08:38 Dose: 1 tab Documented by: Ondansetron HCl (Ondansetron Inj 2 Mg/Ml 2 Ml Vial) 4 mg IV Q6H PRN PRN Reason: Nausea Stop: 11/24/20 18:37 Polyethylene Glycol (Polyethylene (Miralax) 17 Gm Pack) 17 gm PO DAILY PRN PRN Reason: Constipation Stop: 11/24/20 18:37 Vitamin D (Cholecalciferol 1,000 Units 25 Mcg Tab) 1,000 units PO [facility] Stop: 11/27/20 08:59 Last Admin: 10/28/20 08:37 Dose: 1,000 units Documented by: Zinc Sulfate (Zinc Sulfate 220 Mg Capsule) 220 mg PO [facility] Stop: 11/27/20 08:59 Last Admin: 10/28/20 08:38 Dose: 220 mg Documented by:
[2020-10-28] MEDS: ASPIRIN 81 MG ECTAB PO SCH (20:47)
[2020-10-29] MEDS: FUROSEMIDE 20 MG in SYRINGE 0 ML IV SCH (08:32)
[2020-10-29] MEDS: LOSARTAN POTASSIUM 50 MG TAB PO SCH (08:33)
[2020-10-29] MEDS: ATORVASTATIN 40 MG TAB PO SCH (08:33)
[2020-10-29] MEDS: ATENOLOL 25 MG TABLET PO SCH (08:33)
[2020-10-29] MEDS: ZINC SULFATE 220 MG CAPSULE PO SCH (08:33)
[2020-10-29] MEDS: dexAMETHasone 6 MG in SYRINGE 0 ML IV SCH (08:33)
[2020-10-29] MEDS: guaiFENesin 600 MG TABCR PO SCH ×2 (08:34→20:28)
[2020-10-29] MEDS: MULTIVITAMIN TAB PO SCH (08:34)
[2020-10-29] MEDS: CHOLECALCIFEROL 1,000 UNITS 25 MCG TAB PO SCH (08:34)
[2020-10-29] MEDS: ENOXAPARIN INJ 40 MG/0.4 ML SYR SQ SCH ×2 (08:34→20:27)
[2020-10-29] MEDS: INSULIN ASPART 100 UNITS/ML 3 ML PEN SC SCH ×4 (08:35→21:00)
[2020-10-29] MEDS: INSULIN GLARGINE SOLOSTAR 100 UNITS/ML 3 ML PEN SC SCH (08:35)
[2020-10-29] MEDS: ASCORBIC ACID 500 MG TAB PO SCH ×2 (09:32→20:27)
--- NOTE | 2020-10-29 15:57 | Hospitalist Progress Note ---
Date of Service October 29, 2020 Assessment & Plan (1) Pneumonia due to COVID-19 virus: Plan: Doing well on current regimen of dexamethasone and supplemental oxygen. She has plateued on 4 LPM at rest. Encouraged to prone and continue incentive spirometer and flutter valve with ambulation as tolerated. Wean oxygen as tolerated. Outside the window for remdesivir after 10 days of symptoms. Continue Covid isolation precautions. Utilize Lasix to make her net negative. Cough treated with Robitussin AC PRN and scheduled Mucinex. (2) Hypoxia: Plan: Secondary to above, continue plan per #1. (3) Hypokalemia: Plan: Home HCTZ held, continue with Lasix and potassium supplementation as needed. (4) Transaminitis: Plan: Thought secondary to Covid, continue CMP monitoring as outpatient once infection has cleared. There is no abnormal clinical findings consistent with a biliary infection. (5) Diabetes mellitus, type II: Plan: A1C 7.7 reflects poor control for her age. Cont with insulin with carb coverage and correction factor as needed. Increased hyprglycemia noted today-on Scale #3 dosing, consulted glycemic pharmacist for assistance. (6) HTN (hypertension): Plan: At goal. 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 TTE from 04/27 reveals EF of 60 to 64%. Continue holding HCTZ and utilizing Lasix for immediate volume management. Replace electrolytes as needed. (8) Left bundle branch block: Plan: Chronic (9) Obesity: Plan: weight loss advised (10) DVT prophylaxis: Plan: Lovenox Full Dispo-to home when medically stable and off oxygen [facility] Clifton [facility] and Anticipated Discharge Date Admission Date: October 25, 2020 Subjective 69-year-old female admitted with Covid pneumonia. Persistent hypoxia. Eager to be discharged We discussed turning down her steroids and she thinks she will be ok on current therapy. Tolerating PO, afebrile Review of Systems Review of Systems: All systems were reviewed and negative except as indicated in HPI above. Physical Exam Physical Exam: CONSTITUTIONAL: obese, vitals as above, generally well- appearing, NAD EYES: normal conjunctivae, no scleral icterus ENT: external ear and nose normal, oropharynx clear, MMM RESPIRATORY: CTAB, no wheezing or rales, good diaphragmatic excursion and moving air well. CARDIOVASCULAR: regular rate and rhythm, S1 and 2 heard without murmurs, gallops or rubs, no peripheral edema GASTROINTESTINAL: soft, nontender, protuberant, ND MUSCULOSKELETAL: strength 5/5 throughout, head is normocephalic and atraumatic SKIN: warm and dry NEUROLOGIC: CN 2-12 grossly intact, normal cognition, normal speech, no tremor, no gross focal deficits. PSYCHIATRIC: alert cooperative and oriented to person, place and time. Euthymic mood, makes good eye contact, language grossly intact, recent and remote memory grossly intact. Results & Data Results & Data ([facility]) Vital Signs (Past 12 Hours) Vital Signs Temp Pulse Resp BP Pulse Ox Pulse Ox 10/29/20 15:52 37.2 C 78 19 110/72 93 10/29/20 11:59 37.0 C 74 20 106/59 L 96 10/29/20 08:00 89 L 10/29/20 07:39 37.3 C 86 20 133/74 93 10/29/20 04:06 37.0 C 82 16 134/74 93 Medications Administered Current Inpatient Medications Acetaminophen (Acetaminophen 325 Mg Tab) 650 mg PO Q4H PRN PRN Reason: Pain or Fever Stop: 11/24/20 18:37 Amlodipine Besylate (Amlodipine Besylate 5 Mg Tab) 5 mg PO QDD CRISTHIAN Stop: 11/24/20 18:37 Last Admin: 10/28/20 17:16 Dose: 5 mg Documented by: Ascorbic Acid (Ascorbic Acid 500 Mg Tab) 500 mg PO BID CRISTHIAN Stop: 11/26/20 20:59 Last Admin: 10/29/20 09:32 Dose: 500 mg Documented by: Aspirin (Aspirin 81 Mg Ectab) 81 mg PO HS CRISTHIAN Stop: 11/24/20 20:59 Last Admin: 10/28/20 20:47 Dose: 81 mg Documented by: Atenolol (Atenolol 25 Mg Tablet) 25 mg PO QAM CRISTHIAN Stop: 11/25/20 08:59 Last Admin: 10/29/20 08:33 Dose: 25 mg Documented by: Atorvastatin Calcium (Atorvastatin 40 Mg Tab) 40 mg PO QAM CRISTHIAN Stop: 11/25/20 08:59 Last Admin: 10/29/20 08:33 Dose: 40 mg Documented by: Dextrose (Dextrose 50% 50 Ml Syringe) 25 - 50 ml IV UD PRN; Protocol PRN Reason: Hypoglycemia Protocol Stop: 11/24/20 18:37 Enoxaparin Sodium (Enoxaparin Inj 40 Mg/0.4 Ml Syr) 40 mg SQ Q12H CRISTHIAN Stop: 11/24/20 19:59 Last Admin: 10/29/20 08:34 Dose: 40 mg Documented by: Glucagon (Glucagon For Inj 1 Mg Vial) 1 mg SQ UD PRN; Protocol PRN Reason: Hypoglycemia Protocol Stop: 11/24/20 18:37 Glucose (Glucose 10 Tabs/Tube) 4 - 8 tabs PO UD PRN; Protocol PRN Reason: Hypoglycemia Protocol Stop: 11/24/20 18:37 Glucose (Glucose 40% Gel 15 Gm Tube) 15 - 30 gm PO UD PRN; Protocol PRN Reason: Hypoglycemia Protocol Stop: 11/24/20 18:37 Guaifenesin (Guaifenesin 600 Mg Tabcr) 600 mg PO Q12 CRISTHIAN Stop: 11/26/20 20:59 Last Admin: 10/29/20 08:34 Dose: 600 mg Documented by: Guaifenesin/Codeine Phosphate (Guaifenesin/Codeine 200mg/20mg 10ml Udc) 10 ml PO Q6H PRN PRN Reason: Cough Stop: 11/26/20 20:59 Dexamethasone 6 mg/ Syringe 1.5 mls @ 1 mls/min IV DAILY CRISTHIAN Stop: 11/03/20 09:02 Last Admin: 10/29/20 08:33 Dose: 1 mls/min Documented by: Furosemide 20 mg/ Syringe 2 mls @ 4 mls/min IV QAM CRISTHIAN Stop: 11/25/20 08:59 Last Admin: 10/29/20 08:32 Dose: 4 mls/min Documented by: Insulin Aspart (Insulin Aspart 100 Units/Ml 3 Ml Pen) 0 units SC ACHS CRISTHIAN Stop: 11/24/20 18:37 Last Admin: 10/29/20 13:03 Dose: 15 units Documented by: Insulin Glargine (Insulin Glargine Solostar 100 Units/Ml 3 Ml Pen) 25 units SC BID CRISTHIAN Stop: 11/26/20 08:59 Last Admin: 10/29/20 08:35 Dose: 25 units Documented by: Losartan Potassium (Losartan Potassium 50 Mg Tab) [address] [facility] Stop: 11/25/20 08:59 Last Admin: 10/29/20 08:33 Dose: 100 mg Documented by: Methylprednisolone (Methylprednisolone 125 Mg/2 Ml Vial) 125 mg IV ONCE PRN PRN Reason: Stridor/New Wheezing/SOB Miscellaneous (Carbohydrates For Hypoglycemia ) 15 - 30 gm PO UD PRN PRN Reason: Hypoglycemia Protocol Stop: 11/24/20 18:37 Multivitamins (Multivitamin Tab) [address] [facility] Stop: 11/25/20 08:59 Last Admin: 10/29/20 08:34 Dose: 1 tab Documented by: Ondansetron HCl (Ondansetron Inj 2 Mg/Ml 2 Ml Vial) 4 mg IV Q6H PRN PRN Reason: Nausea Stop: 11/24/20 18:37 Polyethylene Glycol (Polyethylene (Miralax) 17 Gm Pack) 17 gm PO DAILY PRN PRN Reason: Constipation Stop: 11/24/20 18:37 Vitamin D (Cholecalciferol 1,000 Units 25 Mcg Tab) 1,[address] [facility] Stop: 11/27/20 08:59 Last Admin: 10/29/20 08:34 Dose: 1,000 units Documented by: Zinc Sulfate (Zinc Sulfate 220 Mg Capsule) [address] [facility] Stop: 11/27/20 08:59 Last Admin: 10/29/20 08:33 Dose: 220 mg Documented by:
[2020-10-29] MEDS ORDERED: PHARMACY GLYCEMIC MGMT CONSULT PRN (17:29)
[2020-10-29] MEDS: amLODIPine BESYLATE 5 MG TAB PO SCH (18:00)
[2020-10-29] MEDS ORDERED: INSULIN GLARGINE SOLOSTAR 100 UNITS/ML 3 ML PEN SC ONE (18:00)
[2020-10-29] MEDS: ASPIRIN 81 MG ECTAB PO SCH (20:28)
[2020-10-30] MEDS: INSULIN ASPART 100 UNITS/ML 3 ML PEN SC SCH ×6 (03:36→20:46)
[2020-10-30 06:46] LABS: Hematocrit (blood only) 39.8 % (37-47); Hemoglobin 13.6 g/dL (12.0-16.0); Mean Corpuscular Hemoglobin 29.5 pg (25-34); Mean Corpuscular Hgb Conc 34.2 g/dL (32-36); Mean Corpuscular Volume 86.3 fL (80-100); Mean Platelet Volume 9.6 fL (7.4-10.4); Platelet Count 480 K/uL (130-400); RDW Coefficient of Variation 13.7 % (11.5-14.5); RDW Standard Deviation 43.1 fL (36.4-46.3); Red Blood Count 4.61 M/uL (4.2-5.4); White Blood Count 20.59 K/uL (4.8-10.8)
[2020-10-30 07:17] LABS: BUN Creatinine Ratio 21.6 (10-20); C Reactive Protein 11.6 mg/dl (0-0.29); Calcium 9.3 mg/dl (8.5-10.1); Creatinine Clr Calc Pharmacy 84.2 ml/min; Est GFR (African American) 91.3 ml/min; Est GFR (Non-African American) 78.8 ml/min; Magnesium 1.4 mg/dl (1.8-2.4)
[2020-10-30] MEDS: dexAMETHasone 10 MG in SYRINGE 0 ML IV SCH ×3 (08:45→09:17)
[2020-10-30] MEDS ORDERED: INSULIN HUMAN NPH SC SCH (09:00)
[2020-10-30] MEDS ORDERED: POTASSIUM CHLORIDE CRTAB 20 MEQ TABCR PO SCH (09:15)
[2020-10-30] MEDS ORDERED: LEVALBUTEROL HCL 0.63 MG/3 ML NEB NEB PRN (09:17)
[2020-10-30] MEDS: ENOXAPARIN INJ 40 MG/0.4 ML SYR SQ SCH ×2 (09:18→20:44)
[2020-10-30] MEDS: ASCORBIC ACID 500 MG TAB PO SCH ×2 (09:18→20:45)
[2020-10-30] MEDS: ATENOLOL 25 MG TABLET PO SCH (09:18)
[2020-10-30] MEDS: LOSARTAN POTASSIUM 50 MG TAB PO SCH (09:19)
[2020-10-30] MEDS: ZINC SULFATE 220 MG CAPSULE PO SCH (09:19)
[2020-10-30] MEDS: guaiFENesin 600 MG TABCR PO SCH ×2 (09:19→20:45)
[2020-10-30] MEDS: CHOLECALCIFEROL 1,000 UNITS 25 MCG TAB PO SCH (09:20)
[2020-10-30] MEDS: MULTIVITAMIN TAB PO SCH (09:20)
[2020-10-30] MEDS: ATORVASTATIN 40 MG TAB PO SCH (09:20)
[2020-10-30] MEDS: INSULIN GLARGINE SOLOSTAR 100 UNITS/ML 3 ML PEN SC SCH ×2 (09:22→20:46)
[2020-10-30] MEDS: POTASSIUM CHLORIDE / WTR 10 MEQ/100 ML PLCT IV SCH ×2 (10:32→11:33)
[2020-10-30] MEDS: MAGNESIUM SULFATE / D5W 1 GM/100 ML BAG IV SCH ×3 (10:33→14:37)
--- NOTE | 2020-10-30 10:45 | XRay Report ---
SINGLE VIEW CHEST CLINICAL HISTORY: Covid pneumonia. FINDINGS: An AP, portable, upright chest radiograph is compared to study dated 10/25/2020. The patient is status post midline sternotomy. The heart is mildly enlarged. Multifocal airspace opacities are a gain seen throughout both lungs. No large pleural effusion or pneumothorax is identified. The skeleta l structures are osteopenic. The bony thorax is grossly intact. IMPRESSION: 1. Multifocal airspace opacities are unchanged, and likely resent a viral pneumonia. Radiographic fol low-up to resolution is recommended. 2. Mild cardiomegaly. ACT 112: Negative or not required by law. Electronically signed by: Luis Umana M.D. 10/30/2020 10:43 AM
--- NOTE | 2020-10-30 13:08 | Pharmacy Report ---
Pharmacy Glycemic Short Note 2 - Date of Service October 30, 2020 - Glycemic Short BSG Results (Last 24 hours): 10/29/20 10/29/20 10/29/20 17:06 17:08 20:20 Glucose POC Glucose 322 H* 325 H* 292 H 10/30/20 10/30/20 10/30/20 03:24 06:23 07:54 Glucose 160 H POC Glucose 137 H 180 H 10/30/20 11:44 Glucose POC Glucose 231 H OUTPATIENT ANTIDIABETIC REGIMEN: * Metformin 1 gm BID * A1c 7.7% 10/26/20 ASSESSMENT: * Pt with elevated BSGs likely secondary to dexamethasone administration. * BSG on morning lab this morning 180 mg/dL will increase lantus dose to approximately weight based stress of 3 * Will utilize NPH to help cover steroid prandial effect, given 0.4 units/kg this morning with dexamethasone administration * Lunch BSG elevated, however AM insulin given ~0920, NPH would likely not have peaked with this BSG * Will continue current novolog parameters, tighten if needed. PLAN FOR INPATIENT GLYCEMIC CONTROL: * Hold outpatient oral diabetes medications * Basal insulin * Lantus 30 units SQ BID * Bolus insulin * NovoLog per scale ACHS or Q6hrs while NPO * Goal Range: Low 110 mg/dL - High 140 mg/dL * Correction Factor: 12 mg/dL/unit * Nutritional / Prandial insulin per carb ratio of 1 unit per 4 grams CHO consumed PLAN FOR DISCHARGE: * tbd
--- NOTE | 2020-10-30 14:59 | Hospitalist Progress Note ---
Date of Service October 30, 2020 Assessment & Plan (1) Pneumonia due to COVID-19 virus: Plan: Acute respiratory failure with hypoxia COVID-19 pneumonia -CXR: Multifocal airspace opacities are unchanged, and likely resent a viral pneumonia. Mild cardiomegaly. Continue dexamethasone Continue supplemental oxygen Lasix as needed Encouraged to prone Pulmonary hygiene Currently on high flow oxygen Consult pulmonary for input (2) Hypoxia: Plan: Management as above (3) Hypokalemia: Plan: Hypokalemia Hypomagnesemia Replace electrolytes as needed (4) Transaminitis: Plan: Likely secondary to COVID-19 infection Monitor (5) Diabetes mellitus, type II: Plan: HbA1C 7.7 Continue insulin Monitor BGs (6) HTN (hypertension): Plan: Continue amlodipine, atenolol, losartan (7) Chronic diastolic heart failure: Plan: 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 TTE from 04/27 reveals EF of 60 to 64% Hold HCTZ Continue IV lasix (8) Left bundle branch block: Plan: Chronic (9) Obesity: Plan: weight loss advised (10) DVT prophylaxis: Plan: Lovenox SQ Code Status Full Code Admission and Anticipated Discharge Date Admission Date: October 25, 2020 Subjective Patient is seen and examined at bedside Patient was more dyspneic this morning and transition to high flow oxygen States having cough with some expectoration Denies chest pain, nausea, vomiting, abdominal pain, diarrhea, dizziness Offers no other complaints Review of Systems Review of Systems: All systems reviewed & are unremarkable except as noted in Subjective Physical Exam Physical Exam: Physical Exam: Vitals signs as noted above General Appearance:Morbidly Obese, no apparent distress Head: normocephalic, Atraumatic Eyes: normal inspection, EOMI Neck: supple, Trachea midline Respiratory/Chest: Decreased breath sounds, CTA Cardiovascular: S1, S2, No murmur Abdomen/GI:Soft, Non tender, Bowel sounds present Extremities/Musculoskelatal:normal inspection, no edema Neurologic/Psych:AAOX3, grossly no focal neurological deficits Skin: normal color, warm Results & Data Results & Data ([facility]) Vital Signs (Past 12 Hours) Vital Signs Temp Pulse Pulse Resp BP Pulse Ox Pulse Ox 10/30/20 11:46 84 16 96 10/30/20 11:42 36.9 C 83 18 108/64 95 10/30/20 08:04 117 H 16 93 10/30/20 08:00 85 L 10/30/20 07:33 37.7 C H 125 H 18 131/87 10/30/20 03:28 37.4 C 22 131/68 88 L Laboratory Results Short CBC 10/30/20 Range/Units 06:23 WBC 20.59 H (4.8-10.8) K/uL Hgb 13.6 (12.0-16.0) g/dL Hct 39.8 (37-47) % Plt Count 480 H (130-400) K/uL BMP 10/30/20 06:23 Sodium 138 Potassium 3.0 L Chloride 100 Carbon Dioxide 27 BUN 17 Creatinine 0.77 Glucose 160 H Calcium 9.3
[2020-10-30] MEDS: FUROSEMIDE 20 MG in SYRINGE 0 ML IV SCH (15:12)
[2020-10-30] MEDS: ACETAMINOPHEN 325 MG TAB PO PRN (15:17)
[2020-10-30] MEDS ORDERED: POTASSIUM CHLORIDE CRTAB 20 MEQ TABCR PO ONE (16:00)
[2020-10-30] MEDS: amLODIPine BESYLATE 5 MG TAB PO SCH (17:37)
[2020-10-30] MEDS: ASPIRIN 81 MG ECTAB PO SCH (20:45)
--- NOTE | 2020-10-30 21:44 | Pulmonary Consultation ---
Date of Consultation October 30, 2020 Assessment & Plan (1) Pneumonia due to COVID-19 virus: (2) Pneumonitis: (3) Acute respiratory failure: (4) Hypoxia: (5) DVT prophylaxis: Attending: Dr. Betancourt Impression: This is a 69-year-old female who developed initial Covid symptoms approximately 15 days ago. She was admitted on 10/25/2020 and started on dexamethasone 6 mg IV daily. She was outside of the window for remdesivir so this was not administered. She did not receive any convalescent plasma. Dexamethasone was increased from 6 mg daily to 10 mg daily starting today. This is currently day 6 of IV steroids. Recommendations: 1. COVID-19 multifocal pneumonia: * Day 6 of IV dexamethasone. Dose was increased from 6 mg to 10 mg today. * We do not have supply for tocilizumab * Continue with supplemental oxygen using high flow cannula as tolerated. Would attempt to use higher volume and less FiO2 if tolerated * At this point, would not suggest any additional treatment. Continue supportive care and monitor on telemetry 2. Pneumonitis with hypoxia: * Patient with no prior history of pulmonary disease. * Patient with no prior history of tobacco abuse or pulmonary disease * This certainly follows a pattern of a viral illness. * Continue guaifenesin * Continue flutter valve and incentive spirometry 3. DVT prophylaxis * Continue enoxaparin 40 mg subcutaneously every 12 hours Thank you for including us in the care of this patient. We will continue to follow along with you Please refer to Dr. Betancourt's addendum for further recommendations or corrections. Supervising Physician Co-Signing Physician Notes I saw and evaluated the patient with Luis Contreras, and agree with findings and plan as documented in the note. 69-year-old morbidly obese with past medical history of diabetes and hyp ertension was admitted to the hospital with COVID-19 pneumonia Pulmonary consulted for worsening hypoxia Patient is not a candidate for remdesivir I will increase the dexamethasone to 10 mg on a daily basis Recommend to keep the patient negative balance Awake proning will be helpful Continue with incentive spirometry, flutter valve as well as guaifenesin CPAP nightly and as needed shortness of breath Please note the above document was generated using voice recognition software. It may contain grammatical, syntax or spelling errors.Any formal questions or concerns about the content, text or information contained within the body of this dictation should be directly addressed to the provider for clarification. History of Present Illness Reason for Consultation: Covid pneumonia with hypoxia Attending Physician: David Sharma MD History of Present Illness Attending: Dr. Betancourt This is a 69-year-old female that was admitted 10/25/2020 with hypoxia and found to have COVID-19 pneumonia. Past medical history includes chronic diastolic heart failure, type 2 diabetes, hypertension, dyslipidemia, chronic left bundle branch block, history of aortic valve replacement. Patient was started on dexamethasone but not started on remdesivir secondary to being outside of the window as she had 10 days of symptoms. Patient continues on high flow supplemental oxygen via nasal cannula. She is not moved and has been titrated to an FiO2 of 65% and a flow rate of 20 L/min. The patient is frustrated and wants to go home but is not in any acute distress. Patient's T- max this admission is 37.7 C which occurred this morning at 7:33 AM. She denies any fever, chills, sweats, rigors. She has no significant production of sputum. She does have occasional cough. She is unaware of any tachyarrhythmia. She has no chest pain or tightness. Allergies Allergy/AdvReac Type Severity Reaction Status Date / Time No Known Allergies Allergy Unknown ? Verified 10/25/20 14:49 Home Medications Medication Instructions Recorded Confirmed Type losartan 100 mg tablet (Cozaar) 100 mg PO QAM 08/22/18 10/25/20 History multivitamin (Daily Multi-Vitamin) 1 tab PO QAM 08/22/18 10/25/20 History amlodipine 5 mg tablet (Norvasc) 5 mg PO QDD 10/25/20 10/25/20 History aspirin 81 mg tablet,delayed 81 mg PO HS 10/25/20 10/25/20 History release (Aspirin Low Dose) atenolol 25 mg tablet (Tenormin) 25 mg PO QAM 10/25/20 10/25/20 History atorvastatin 40 mg tablet (Lipitor) 40 mg PO QAM 10/25/20 10/25/20 History cinnamon bark 500 mg capsule 500 mg PO DAILY 10/25/20 10/25/20 History (Cinnamon) hydrochlorothiazide 25 mg tablet 25 mg PO QAM 10/25/20 10/25/20 History metformin 1,000 mg tablet 1,000 mg PO BID 10/25/20 10/25/20 History omega-3 fatty acids 1,000 mg PO BID 10/25/20 10/25/20 History triamcinolone acetonide 0.1 % 1 applic TOPICAL BID 10/25/20 10/25/20 History topical cream (Triderm) Patient History Medical History Chronic diastolic heart failure Diabetes mellitus, type II HTN (hypertension) Left bundle branch block Surgical History H/O aortic valve replacement prosthetic valve in 2008 at [facility] [place] S/P hip replacement Family History Other Heart disease Social History Smoking Status: Never smoker Second Hand Exposure: No; Do You Dip or Chew Tobacco: No; Tobacco Cessation Education Requested by Patient: No Hx Alcohol Use: No Hx Substance Use: No Preferred Language: Polish Communication Ability: Effective Alternative Energy Engineer Required: No Beliefs That Will Affect Care: None marital status: Current Living Situation: Spouse current occupational status: employed Other Information That Helps Us Care for You: No Feels Safe at Home: Yes and No Is there a partner from a previous relationship who is making you feel unsafe now?: No Any Concerns about Your Family Situation: No Would You Like to Speak to Someone About Your Situation: No Safety Concerns: Feels Safe At This Time Assistive Devices: Glasses and Oxygen - Continuous Review of Systems Review of Systems: All systems reviewed & are unremarkable except as noted in Subjective Physical Exam Physical Exam: GENERAL : No acute distress EYES: No icterus, gaze conjugate NOSE: No evidence of epistaxis MOUTH: No lesions or candidiasis NECK: Supple LUNGS: Decreased breath sounds. Positive for rales. HEART: Regular, rate in the 90s ABDOMEN: Soft, NT, ND, BS Present EXTREMITIES: No LE edema, pedal pulses intact NEURO: A&OX3 Results & Data Results & Data ([facility]) Vital Signs (Past 12 Hours) Vital Signs Temp Pulse Pulse Resp BP Pulse Ox 10/30/20 20:20 77 22 90 10/30/20 17:00 73 123/70 94 10/30/20 16:08 36.8 C 72 22 91/65 L 92 10/30/20 15:58 77 18 93 10/30/20 11:46 84 16 96 10/30/20 11:42 36.9 C 83 18 108/64 95 Laboratory Results 10/30/20 06:23 10/30/20 06:23 Diagnostic Findings Chest X-Ray 10/30/20 08:45 SINGLE VIEW CHEST CLINICAL HISTORY: Covid pneumonia. FINDINGS: An AP, portable, upright chest radiograph is compared to study dated 10/25/2020. The patient is status post midline sternotomy. The heart is mildly enlarged. Multifocal airspace opacities are again seen throughout both lungs. No large pleural effusion or pneumothorax is identified. The skeletal structures are osteopenic. The bony thorax is grossly intact. IMPRESSION: 1. Multifocal airspace opacities are unchanged, and likely resent a viral pneumonia. Radiographic follow-up to resolution is recommended. 2. Mild cardiomegaly. ACT 112: Negative or not required by law. Electronically signed by: Luis Umana M.D. 10/30/2020 10:43 AM PG Care Time/CCT Total # of Minutes Spent Total Time Spent with Patient: Total time spent is greater than 50% in coordination of care (as documented) at patient's floor/unit and/or counseling patient:45 Coding Level of Care Code 96417 Inpt Consult Level 4 Diagnoses Pneumonia due to COVID-19 virus U07.1; J12.82 Pneumonitis J18.9 Acute respiratory failure J96.00 Hypoxia R09.02 DVT prophylaxis Z29.9 Time Spent (min) 45
[2020-10-31] MEDS: INSULIN ASPART 100 UNITS/ML 3 ML PEN SC SCH ×7 (00:15→21:12)
[2020-10-31] MEDS: ACETAMINOPHEN 325 MG TAB PO PRN (00:16)
[2020-10-31 07:06] LABS: Creatinine Clr Calc Pharmacy 71.6 ml/min; Est GFR (African American) 74.6 ml/min; Est GFR (Non-African American) 64.4 ml/min; Magnesium 2.5 mg/dl (1.8-2.4)
[2020-10-31] MEDS: ENOXAPARIN INJ 40 MG/0.4 ML SYR SQ SCH ×2 (07:36→20:27)
[2020-10-31] MEDS: ASCORBIC ACID 500 MG TAB PO SCH ×2 (08:19→20:26)
[2020-10-31] MEDS: ATORVASTATIN 40 MG TAB PO SCH (08:20)
[2020-10-31] MEDS: ATENOLOL 25 MG TABLET PO SCH (08:20)
[2020-10-31] MEDS: FUROSEMIDE 20 MG in SYRINGE 0 ML IV SCH (08:21)
[2020-10-31] MEDS: guaiFENesin 600 MG TABCR PO SCH ×2 (08:21→20:27)
[2020-10-31] MEDS: CHOLECALCIFEROL 1,000 UNITS 25 MCG TAB PO SCH (08:21)
[2020-10-31] MEDS: LOSARTAN POTASSIUM 50 MG TAB PO SCH (08:22)
[2020-10-31] MEDS: MULTIVITAMIN TAB PO SCH (08:22)
[2020-10-31] MEDS: ZINC SULFATE 220 MG CAPSULE PO SCH (08:22)
[2020-10-31] MEDS ORDERED: cefTRIAXone SODIUM 1,000 MG in DEXTROSE 5% 50 ML IV SCH (08:30)
[2020-10-31] MEDS: dexAMETHasone 10 MG in SYRINGE 0 ML IV SCH (09:25)
[2020-10-31] MEDS: cefTRIAXone SODIUM 2,000 MG in DEXTROSE 5% 50 ML IV SCH (09:25)
[2020-10-31] MEDS: INSULIN HUMAN NPH SC SCH (09:29)
[2020-10-31] MEDS: INSULIN GLARGINE SOLOSTAR 100 UNITS/ML 3 ML PEN SC SCH ×2 (09:30→21:13)
--- NOTE | 2020-10-31 11:54 | Pharmacy Report ---
Pharmacy Glycemic Short Note 2 - Date of Service October 31, 2020 - Glycemic Short BSG Results (Last 24 hours): 10/30/20 10/30/20 10/30/20 11:44 17:16 20:30 POC Glucose 231 H 278 H 251 H 10/30/20 10/31/20 10/31/20 23:54 03:31 08:20 POC Glucose 178 H 131 H 153 H OUTPATIENT ANTIDIABETIC REGIMEN: * Metformin 1 gm BID * A1c 7.7% 10/26/20 ASSESSMENT: 10/31 * 126 SQ insulin administered in last 24 hours - of note, while tolerating very little PO * Fasting BSG 153 this AM after receipt of 60 units Lantus + 30 units NPH yesterday. Will begin to scale back Lantus dose given uncertain PO intake. * Will adjust Novolog doses to allow for greater correctional and prandial doses w/ breakfast, lunch and dinner - will providing decreased doses at HS and on overnight checks as the effects of AM dexamethasone do tend to dissipate after 12 hrs in many patients 10/30 * Pt with elevated BSGs likely secondary to dexamethasone administration. * BSG on morning lab this morning 180 mg/dL will increase lantus dose to approximately weight based stress of 3 * Will utilize NPH to help cover steroid prandial effect, given 0.4 units/kg this morning with dexamethasone administration * Lunch BSG elevated, however AM insulin given ~0920, NPH would likely not have peaked with this BSG * Will continue current novolog parameters, tighten if needed. PLAN FOR INPATIENT GLYCEMIC CONTROL: * Hold outpatient oral diabetes medications * Basal insulin * Lantus 30 units SQ x 1 this AM, use scaled dosing for PM: 0 units if BSG less than 120, 15 units if BSG 120-200, 20 units if BSG above 200 * NPH 35 units SQ Q QM - to be administered when IV dexamethasone given (hold NPH if dexamethasone dose held or d/c'd) * Bolus insulin * NovoLog per scale ACHS and at 0000 + 0400 given BSG variability thus far * Goal Range: Low 110 mg/dL - High 140 mg/dL * Correction Factor: 10 mg/dL/unit with breakfast, lunch and dinner; 15mcg/dL/unit at HS and w/ overnight checks * Nutritional / Prandial insulin per carb ratio of 1 unit per 3 grams CHO consumed with breakfast, lunch and dinner; 1 unit per 5 grams CHO at HS PLAN FOR DISCHARGE: * to be determined
--- NOTE | 2020-10-31 14:42 | Pulmonology Progress Note ---
Date of Service October 31, 2020 Assessment & Plan (1) Pneumonia due to COVID-19 virus: (2) Pneumonitis: (3) Acute respiratory failure: (4) Hypoxia: (5) DVT prophylaxis: Plan: Impression: This is a 69-year-old female who developed initial Covid symptoms approximately 15 days ago. She was admitted on 10/25/2020 and started on dexamethasone 6 mg IV daily. She was outside of the window for remdesivir so this was not administered. She did not receive any convalescent plasma. Dexamethasone was increased from 6 mg daily to 10 mg daily starting today. This is currently day 6 of IV steroids. --Acute hypoxic respiratory failure Secondary to multilobar COVID-19 pneumonia COVID-19 PCR positive CRP 27 Procalcitonin 1.05 Continue with O2 supplementation to keep oxygen saturation between 90-92%. Awake proning will be helpful Continue with incentive spirometry Continue with flutter valve. Plan: Chest x-ray on 10/30/2020 x-ray shows some improvement in the pulmonary vascular markings Patient is completely -2.3 L since coming to the hospital Would recommend continuing with diuresis to keep the patient negative balance Patient procalcitonin 1.05, would recommend an EKG to look at the QTC The QTC is within normal limit can give azithromycin for 5 days for atypical coverage Patient was not able to tolerate CPAP as she is claustrophobic Advised to give it 1 more try Incentive spirometry was ordered for the patient and the message was relayed to the RN to show her how to use it Please note the above document was generated using voice recognition software. It may contain grammatical, syntax or spelling errors.Any formal questions or concerns about the content, text or information contained within the body of this dictation should be directly addressed to the provider for clarification. Admission and Anticipated Discharge Date Admission Date: October 25, 2020 Subjective Patient seen and examined at bedside. No acute distress. Patient was sitting on a chair she was on high flow 40 L, 70% saturating 92-93% I went down to 60% FiO2 as she was still saturating 90% Patient says she is feeling better compared to yesterday. She is diuresing well. Fair appetite Denies any chest pain, has been bringing up phlegm. There was no incentive spirometry in the room Review of Systems Review of Systems: All systems reviewed & are unremarkable except as noted in Subjective Physical Exam Physical Exam: Constitutional: No acute distress HEENT: EOMI, PERRLA Respiratory system: Decreased air entry bilaterally, no wheeze, rhonchi, positive crackles bilateral lower lobes CVS: S1-S2 positive, no murmurs or gallops Abdomen: Soft, nontender, nondistended, positive bowel sounds x4, obese Extremities: +2 pulses bilaterally radialis/ dorsalis pedis, no cyanosis, +1 edema bilateral lower extremity Neuro: Awake alert oriented x3 Psych: Normal mood and affect G/U: No Ledezma Skin: no rashes, warm and dry Lymphatic: no cervical or axillary lymphadenopathy Results & Data Results & Data ([facility]) Vital Signs (Past 12 Hours) Vital Signs Temp Pulse Resp BP Pulse Ox 10/31/20 14:30 80 21 89 L 10/31/20 11:10 81 22 90 10/31/20 07:28 37 C 100 H 20 126/70 90 10/31/20 07:25 95 H 18 90 10/31/20 04:13 83 26 H 91 10/31/20 03:34 36.7 C 90 19 94/53 L 91 10/30/20 06:23 10/31/20 06:19 PG Care Time/CCT Total # of Minutes Spent Total Time Spent with Patient: Total time spent is greater than 50% in coordination of care (as documented) at patient's floor/unit and/or counseling patient: Coding Level of Care Code 48318 Subseq Hosp Care Lvl 3 Diagnoses Pneumonia due to COVID-19 virus U07.1; J12.82 Pneumonitis J18.9 Acute respiratory failure J96.00 Hypoxia R09.02 DVT prophylaxis Z29.9
--- NOTE | 2020-10-31 15:35 | Hospitalist Progress Note ---
Date of Service October 31, 2020 Assessment & Plan (1) Pneumonia due to COVID-19 virus: Plan: Acute respiratory failure with hypoxia COVID-19 pneumonia -CXR: Multifocal airspace opacities are unchanged, and likely resent a viral pneumonia. Mild cardiomegaly. Continue dexamethasone Continue supplemental oxygen Lasix as needed Encouraged to prone Pulmonary hygiene Currently on high flow oxygen Intolerance to CPAP Appreciate Pulmonary Input Elevated procalcitonin Empirically started on Rocephin, doxycycline Encourage to prone Continue diuresis (2) Hypoxia: Plan: Management as above (3) Hypokalemia: Plan: Hypokalemia Hypomagnesemia Replace electrolytes as needed (4) Transaminitis: Plan: Likely secondary to COVID-19 infection Monitor (5) Diabetes mellitus, type II: Plan: HbA1C 7.7 Continue insulin Monitor BGs (6) HTN (hypertension): Plan: Continue amlodipine, atenolol, losartan (7) Chronic diastolic heart failure: Plan: 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 TTE from 04/27 reveals EF of 60 to 64% Hold HCTZ Continue IV lasix (8) Left bundle branch block: Plan: Chronic (9) Obesity: Plan: weight loss advised (10) DVT prophylaxis: Plan: Lovenox SQ Code Status Full Code Admission and Anticipated Discharge Date Admission Date: October 25, 2020 Subjective Patient is seen and examined at bedside Currently on high flow oxygen Did not tolerate CPAP Subjectively states feeling better Reports only minimal cough Denies chest pain, nausea, vomiting, abdominal pain, diarrhea, dizziness Review of Systems Review of Systems: All systems reviewed & are unremarkable except as noted in Subjective Physical Exam Physical Exam: Physical Exam: Vitals signs as noted above General Appearance:Morbidly Obese, no apparent distress Head: normocephalic, Atraumatic Eyes: normal inspection, EOMI Neck: supple, Trachea midline Respiratory/Chest: Decreased breath sounds, CTA Cardiovascular: S1, S2, No murmur Abdomen/GI:Soft, Non tender, Bowel sounds present Extremities/Musculoskelatal:normal inspection, no edema Neurologic/Psych:AAOX3, grossly no focal neurological deficits Skin: normal color, warm Results & Data Results & Data ([facility]) Vital Signs (Past 12 Hours) Vital Signs Temp Pulse Resp BP Pulse Ox 10/31/20 14:30 80 21 89 L 10/31/20 11:10 81 22 90 09/23/21 07:28 37 C 100 H 20 126/70 90 10/31/20 07:25 95 H 18 90 10/31/20 04:13 83 26 H 91 10/31/20 03:34 36.7 C 90 19 94/53 L 91 Laboratory Results [facility] 10/31/20 06:19 Creatinine 0.91
[2020-10-31] MEDS: amLODIPine BESYLATE 5 MG TAB PO SCH (17:03)
[2020-10-31] MEDS: ASPIRIN 81 MG ECTAB PO SCH (20:27)
[2020-10-31] MEDS: DOXYCYCLINE HYCLATE 100 MG CAP PO SCH (21:09)
[2020-11-01] MEDS: INSULIN ASPART 100 UNITS/ML 3 ML PEN SC SCH ×6 (00:40→20:29)
[2020-11-01 07:55] LABS: BUN Creatinine Ratio 30.9 (10-20); Calcium 9.3 mg/dl (8.5-10.1); Creatinine Clr Calc Pharmacy 94.7 ml/min; Est GFR (African American) 103.4 ml/min; Est GFR (Non-African American) 89.2 ml/min; Potassium 3.8 mmol/L (3.5-5.1)
[2020-11-01 08:04] LABS: C Reactive Protein 22.4 mg/dl (0-0.29)
[2020-11-01] MEDS: ASCORBIC ACID 500 MG TAB PO SCH ×2 (08:30→20:25)
[2020-11-01] MEDS: ENOXAPARIN INJ 40 MG/0.4 ML SYR SQ SCH ×2 (08:30→20:26)
[2020-11-01] MEDS: DOXYCYCLINE HYCLATE 100 MG CAP PO SCH ×2 (08:31→20:26)
[2020-11-01] MEDS: ATORVASTATIN 40 MG TAB PO SCH (08:31)
[2020-11-01] MEDS: ATENOLOL 25 MG TABLET PO SCH (08:31)
[2020-11-01] MEDS: CHOLECALCIFEROL 1,000 UNITS 25 MCG TAB PO SCH (08:31)
[2020-11-01] MEDS: guaiFENesin 600 MG TABCR PO SCH ×2 (08:32→20:26)
[2020-11-01] MEDS: MULTIVITAMIN TAB PO SCH (08:32)
[2020-11-01] MEDS: FUROSEMIDE 20 MG in SYRINGE 0 ML IV SCH (08:32)
[2020-11-01] MEDS: LOSARTAN POTASSIUM 50 MG TAB PO SCH (08:33)
[2020-11-01] MEDS: ZINC SULFATE 220 MG CAPSULE PO SCH (08:33)
[2020-11-01] MEDS: cefTRIAXone SODIUM 2,000 MG in DEXTROSE 5% 50 ML IV SCH (08:34)
[2020-11-01] MEDS: dexAMETHasone 10 MG in SYRINGE 0 ML IV SCH (09:24)
[2020-11-01] MEDS: INSULIN HUMAN NPH SC SCH (09:26)
--- NOTE | 2020-11-01 09:54 | Pulmonology Progress Note ---
Date of Service November 01, 2020 Assessment & Plan (1) Pneumonia due to COVID-19 virus: (2) Pneumonitis: (3) Acute respiratory failure: (4) Hypoxia: (5) DVT prophylaxis: Plan: Impression: This is a 69-year-old female who developed initial Covid symptoms approximately 15 days ago. She was admitted on 10/25/2020 and started on dexamethasone 6 mg IV daily. She was outside of the window for remdesivir so this was not administered. She did not receive any convalescent plasma. Dexamethasone was increased from 6 mg daily to 10 mg daily starting today. This is currently day 6 of IV steroids. --Acute hypoxic respiratory failure Secondary to multilobar COVID-19 pneumonia COVID-19 PCR positive CRP 27 Procalcitonin 1.05 Continue with O2 supplementation to keep oxygen saturation between 90-92%. Awake proning will be helpful Continue with incentive spirometry Continue with flutter valve. Plan: In/out: +315, patient is -2 L since coming to the hospital Overall there has been good progress when it comes to patient's oxygen requirement Continue with diuretics to keep the patient negative balance Complete the course of dexamethasone for total of 10 days No further recommendations from pulmonary perspective. We will sign off Call directly with any questions Please note the above document was generated using voice recognition software. It may contain grammatical, syntax or spelling errors.Any formal questions or concerns about the content, text or information contained within the body of this dictation should be directly addressed to the provider for clarification. Admission and Anticipated Discharge Date Admission Date: October 25, 2020 Subjective Patient was seen and examined States that she is feeling better Did not use CPAP overnight Denies any chest pain, has been using incentive spirometry Blood going up to 1000 mL. Using the flutter valve and bringing up clear phlegm Shortness of breath is improved. Review of Systems Review of Systems: All systems reviewed & are unremarkable except as noted in Subjective Physical Exam Physical Exam: Constitutional: No acute distress HEENT: EOMI, PERRLA Respiratory system: Decreased air entry bilaterally, no wheeze, rhonchi, positive crackles bilateral lower lobes CVS: S1-S2 positive, no murmurs or gallops Abdomen: Soft, nontender, nondistended, positive bowel sounds x4, obese Extremities: +2 pulses bilaterally radialis/ dorsalis pedis, no cyanosis, +1 edema bilateral lower extremity Neuro: Awake alert oriented x3 Psych: Normal mood and affect G/U: No Ledezma Skin: no rashes, warm and dry Lymphatic: no cervical or axillary lymphadenopathy Results & Data Results & Data ([facility]) Vital Signs (Past 12 Hours) Vital Signs Temp Pulse Resp BP Pulse Ox Pulse Ox 11/01/20 07:58 83 18 90 11/01/20 07:49 36.6 C 85 20 133/82 92 11/01/20 07:43 93 11/01/20 04:37 85 20 92 11/01/20 04:29 36.7 C 96 H 18 130/83 90 11/01/20 00:28 36.8 C 80 16 116/73 94 10/31/20 23:26 88 16 93 10/30/20 06:23 11/01/20 07:10 PG Care Time/CCT Total # of Minutes Spent Total Time Spent with Patient: Total time spent is greater than 50% in coordination of care (as documented) at patient's floor/unit and/or counseling patient: Coding Level of Care Code 11478 Subseq Hosp Care Lvl 2 Diagnoses Pneumonia due to COVID-19 virus U07.1; J12.82 Pneumonitis J18.9 Acute respiratory failure J96.00 Hypoxia R09.02 DVT prophylaxis Z29.9
--- NOTE | 2020-11-01 11:26 | Pharmacy Report ---
Pharmacy Glycemic Short Note 2 - Date of Service November 01, 2020 - Glycemic Short BSG Results (Last 24 hours): 10/31/20 10/31/20 10/31/20 12:19 16:29 20:35 Glucose POC Glucose 179 H 174 H 176 H 11/01/20 11/01/20 11/01/20 00:31 04:25 07:10 Glucose 147 H POC Glucose 144 H 131 H 11/01/20 08:02 Glucose POC Glucose 142 H OUTPATIENT ANTIDIABETIC REGIMEN: * Metformin 1 gm BID * A1c 7.7% 10/26/20 ASSESSMENT: 11/01 * 120 units SQ insulin given in last 24 hrs while tolerating a diet * Fasting AM BSG near goal with 80 units basal on board (45 units Lantus + 35 units NPH) - given BSGs are now better controlled will taper back Lantus dose slightly as BSGs may continue to drop as we approach steady-state * Post-prandial BSGs at goal yesterday using current Novolog doses - will continue 10/31 * 126 SQ insulin administered in last 24 hours - of note, while tolerating very little PO * Fasting BSG 153 this AM after receipt of 60 units Lantus + 30 units NPH yesterday. Will begin to scale back Lantus dose given uncertain PO intake. * Will adjust Novolog doses to allow for greater correctional and prandial doses w/ breakfast, lunch and dinner - will providing decreased doses at HS and on overnight checks as the effects of AM dexamethasone do tend to dissipate after 12 hrs in many patients 10/30 * Pt with elevated BSGs likely secondary to dexamethasone administration. * BSG on morning lab this morning 180 mg/dL will increase lantus dose to approximately weight based stress of 3 * Will utilize NPH to help cover steroid prandial effect, given 0.4 units/kg this morning with dexamethasone administration * Lunch BSG elevated, however AM insulin given ~0920, NPH would likely not have peaked with this BSG * Will continue current novolog parameters, tighten if needed. PLAN FOR INPATIENT GLYCEMIC CONTROL: * Hold outpatient oral diabetes medications (metformin) * Basal insulin * Lantus 30 units SQ Q AM * Lantus Q PM per scale: 0 units if BSG less than 120, 10 units if BSG 120- 200, 15 units if BSG above 200 * NPH 35 units SQ Q QM - to be administered when IV dexamethasone given (hold NPH if dexamethasone dose held or d/c'd) * Bolus insulin * NovoLog per scale ACHS and at 0200 * Goal Range: Low 110 mg/dL - High 140 mg/dL * Correction Factor: 10 mg/dL/unit with breakfast, lunch and dinner; 15mcg/dL/unit at HS and w/ overnight checks (only correct HS and overnight if BSG above 160) * Nutritional / Prandial insulin per carb ratio of 1 unit per 3 grams CHO consumed with breakfast, lunch and dinner; 1 unit per 5 grams CHO at HS PLAN FOR DISCHARGE: * A1c of 7.7 is near goal. Would recommend encouraging lifestyle modifications for improved glycemic control. One could consider the addition of a SGLT2i with evidence of reducing heart failure progression if low A1c goal desired (empagliflozin or canagliflozin)
[2020-11-01] MEDS ORDERED: INSULIN GLARGINE SOLOSTAR 100 UNITS/ML 3 ML PEN SC ONE (11:30)
--- NOTE | 2020-11-01 14:45 | Hospitalist Progress Note ---
Date of Service November 01, 2020 Assessment & Plan (1) Pneumonia due to COVID-19 virus: Plan: Acute respiratory failure with hypoxia COVID-19 pneumonia -CXR: Multifocal airspace opacities are unchanged, and likely resent a viral pneumonia. Mild cardiomegaly. Continue dexamethasone Continue supplemental oxygen Pulmonary hygiene Intolerance to CPAP Appreciate Pulmonary Input Elevated procalcitonin Continue Rocephin, doxycycline Encourage to prone Continue diuresis Procalcitonin trending down Oxygen requirement down to 10 L (2) Hypoxia: Plan: Management as above (3) Hypokalemia: Plan: Hypokalemia Hypomagnesemia Replace electrolytes as needed (4) Transaminitis: Plan: Likely secondary to COVID-19 infection Monitor (5) Diabetes mellitus, type II: Plan: HbA1C 7.7 Continue insulin Monitor BGs (6) HTN (hypertension): Plan: Continue amlodipine, atenolol, losartan (7) Chronic diastolic heart failure: Plan: 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 TTE from 04/27 reveals EF of 60 to 64% Hold HCTZ Continue lasix (8) Left bundle branch block: Plan: Chronic (9) Obesity: Plan: weight loss advised (10) DVT prophylaxis: Plan: Lovenox SQ Code Status Full Code Admission and Anticipated Discharge Date Admission Date: October 25, 2020 Subjective Patient is seen and examined at bedside Oxygen requirement down to 10 L Sitting in bed during my encounter No new complaints Denies any significant cough Denies chest pain, dyspnea, nausea, vomiting, abdominal pain, diarrhea, dizziness Review of Systems Review of Systems: All systems reviewed & are unremarkable except as noted in Subjective Physical Exam Physical Exam: Physical Exam: Vitals signs as noted above General Appearance:Morbidly Obese, no apparent distress Head: normocephalic, Atraumatic Eyes: normal inspection, EOMI Neck: supple, Trachea midline Respiratory/Chest: Decreased breath sounds, CTA Cardiovascular: S1, S2, No murmur Abdomen/GI:Soft, Non tender, Bowel sounds present Extremities/Musculoskelatal:normal inspection, no edema Neurologic/Psych:AAOX3, grossly no focal neurological deficits Skin: normal color, warm Results & Data Results & Data ([facility]) Vital Signs (Past 12 Hours) Vital Signs Temp Pulse Resp BP Pulse Ox Pulse Ox 11/01/20 14:01 94 11/01/20 11:20 91 11/01/20 11:15 36.5 C 78 16 119/74 91 11/01/20 07:58 83 18 90 11/01/20 07:49 36.6 C 85 20 133/82 92 11/01/20 07:43 93 11/01/20 04:37 85 20 92 11/01/20 04:29 36.7 C 96 H 18 130/83 90 Laboratory Results [facility] 11/01/20 07:10 Sodium 136 Potassium 3.8 Chloride 103 Carbon Dioxide 25 BUN 21 H Creatinine 0.68 Glucose 147 H Calcium 9.3
[2020-11-01] MEDS: amLODIPine BESYLATE 5 MG TAB PO SCH (16:05)
[2020-11-01] MEDS: ASPIRIN 81 MG ECTAB PO SCH (20:26)
[2020-11-01] MEDS: INSULIN GLARGINE SOLOSTAR 100 UNITS/ML 3 ML PEN SC SCH (20:29)
[2020-11-02] MEDS: INSULIN ASPART 100 UNITS/ML 3 ML PEN SC SCH ×5 (03:08→20:43)
[2020-11-02 06:07] LABS: Hematocrit (blood only) 36.4 % (37-47); Hemoglobin 12.3 g/dL (12.0-16.0); Mean Corpuscular Hemoglobin 29.5 pg (25-34); Mean Corpuscular Hgb Conc 33.8 g/dL (32-36); Mean Corpuscular Volume 87.3 fL (80-100); Mean Platelet Volume 9.7 fL (7.4-10.4); Platelet Count 590 K/uL (130-400); RDW Coefficient of Variation 14.1 % (11.5-14.5); RDW Standard Deviation 44.5 fL (36.4-46.3); Red Blood Count 4.17 M/uL (4.2-5.4)
[2020-11-02 06:34] LABS: BUN Creatinine Ratio 38.2 (10-20); Calcium 8.9 mg/dl (8.5-10.1); Creatinine Clr Calc Pharmacy 96.2 ml/min; Est GFR (African American) 103.9 ml/min; Est GFR (Non-African American) 89.7 ml/min; Magnesium 2.4 mg/dl (1.8-2.4)
[2020-11-02] MEDS: ENOXAPARIN INJ 40 MG/0.4 ML SYR SQ SCH ×2 (08:00→19:32)
[2020-11-02] MEDS: CHOLECALCIFEROL 1,000 UNITS 25 MCG TAB PO SCH (08:01)
[2020-11-02] MEDS: DOXYCYCLINE HYCLATE 100 MG CAP PO SCH ×2 (08:01→20:39)
[2020-11-02] MEDS: ATENOLOL 25 MG TABLET PO SCH (08:01)
[2020-11-02] MEDS: guaiFENesin 600 MG TABCR PO SCH ×2 (08:02→20:39)
[2020-11-02] MEDS: MULTIVITAMIN TAB PO SCH (08:02)
[2020-11-02] MEDS: ATORVASTATIN 40 MG TAB PO SCH (08:02)
[2020-11-02] MEDS: ZINC SULFATE 220 MG CAPSULE PO SCH (08:02)
[2020-11-02] MEDS: ASCORBIC ACID 500 MG TAB PO SCH ×2 (08:02→20:39)
[2020-11-02] MEDS: LOSARTAN POTASSIUM 50 MG TAB PO SCH (08:02)
[2020-11-02] MEDS: cefTRIAXone SODIUM 2,000 MG in DEXTROSE 5% 50 ML IV SCH (09:13)
[2020-11-02] MEDS: dexAMETHasone 10 MG in SYRINGE 0 ML IV SCH (09:13)
[2020-11-02] MEDS: FUROSEMIDE 20 MG in SYRINGE 0 ML IV SCH (09:14)
[2020-11-02] MEDS: INSULIN HUMAN NPH SC SCH (09:22)
[2020-11-02] MEDS: INSULIN GLARGINE SOLOSTAR 100 UNITS/ML 3 ML PEN SC SCH ×2 (09:23→20:44)
[2020-11-02] MEDS: amLODIPine BESYLATE 5 MG TAB PO SCH (16:05)
--- NOTE | 2020-11-02 17:32 | Hospitalist Progress Note ---
Date of Service November 02, 2020 Assessment & Plan (1) Pneumonia due to COVID-19 virus: Plan: Acute respiratory failure with hypoxia COVID-19 pneumonia -CXR: Multifocal airspace opacities are unchanged, and likely resent a viral pneumonia. Mild cardiomegaly. Continue dexamethasone Continue supplemental oxygen Pulmonary hygiene Intolerance to CPAP Appreciate Pulmonary Input Elevated procalcitonin Continue Rocephin, doxycycline Encourage to prone Continue diuresis Procalcitonin trending down Oxygen requirement down to 10 L Wean supplemental oxygen as able We will complete dexamethasone course tomorrow (2) Hypoxia: Plan: Management as above (3) Hypokalemia: Plan: Hypokalemia Hypomagnesemia Replace electrolytes as needed (4) Transaminitis: Plan: Likely secondary to COVID-19 infection Monitor (5) Diabetes mellitus, type II: Plan: HbA1C 7.7 Continue insulin Monitor BGs (6) HTN (hypertension): Plan: Continue amlodipine, atenolol, losartan (7) Chronic diastolic heart failure: Plan: 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 TTE from 04/27 reveals EF of 60 to 64% Hold HCTZ Continue lasix (8) Left bundle branch block: Plan: Chronic (9) Obesity: Plan: weight loss advised (10) DVT prophylaxis: Plan: Lovenox SQ Code Status Full Code Admission and Anticipated Discharge Date Admission Date: October 25, 2020 Subjective Patient was seen and examined No new complaints Eager to get discharged Still requiring 10 L of supplemental oxygen to maintain saturation No significant cough Denies chest pain, dizziness, nausea, abdominal pain Review of Systems Review of Systems: All systems reviewed & are unremarkable except as noted in Subjective Physical Exam Physical Exam: Physical Exam: Vitals signs as noted above General Appearance:Morbidly Obese, no apparent distress Head: normocephalic, Atraumatic Eyes: normal inspection, EOMI Neck: supple, Trachea midline Respiratory/Chest: Decreased breath sounds, CTA Cardiovascular: S1, S2, No murmur Abdomen/GI:Soft, Non tender, Bowel sounds present Extremities/Musculoskelatal:normal inspection, no edema Neurologic/Psych:AAOX3, grossly no focal neurological deficits Skin: normal color, warm Results & Data Results & Data ([facility]) Vital Signs (Past 12 Hours) Vital Signs Temp Pulse Resp BP Pulse Ox 11/02/20 15:05 37.1 C 66 18 128/76 95 11/02/20 07:43 37 C 71 19 130/78 92 Laboratory Results Short CBC 11/02/20 Range/Units 05:47 WBC 15.60 H (4.8-10.8) K/uL Hgb 12.3 (12.0-16.0) g/dL Hct 36.4 L (37-47) % Plt Count 590 H (130-400) K/uL BMP 11/02/20 05:47 Sodium 136 Potassium 4.0 Chloride 102 Carbon Dioxide 28 BUN 26 H Creatinine 0.67 Glucose 137 H Calcium 8.9
[2020-11-02] MEDS: ASPIRIN 81 MG ECTAB PO SCH (20:39)
[2020-11-02] MEDS ORDERED: SODIUM CHLORIDE 0.65% NA SOLN 45 ML (OCEAN) ONE (20:41)
[2020-11-03] MEDS: INSULIN ASPART 100 UNITS/ML 3 ML PEN SC SCH ×5 (02:11→21:16)
[2020-11-03 05:45] LABS: C Reactive Protein 5.89 mg/dl (0-0.29); Creatinine Clr Calc Pharmacy 94.7 ml/min; Est GFR (African American) 103.4 ml/min; Est GFR (Non-African American) 89.2 ml/min
[2020-11-03] MEDS: FUROSEMIDE 20 MG in SYRINGE 0 ML IV SCH (09:03)
[2020-11-03] MEDS: DOXYCYCLINE HYCLATE 100 MG CAP PO SCH ×2 (09:04→20:05)
[2020-11-03] MEDS: guaiFENesin 600 MG TABCR PO SCH ×2 (09:04→20:05)
[2020-11-03] MEDS: ASCORBIC ACID 500 MG TAB PO SCH ×2 (09:04→20:05)
[2020-11-03] MEDS: dexAMETHasone 10 MG in SYRINGE 0 ML IV SCH (09:04)
[2020-11-03] MEDS: LOSARTAN POTASSIUM 50 MG TAB PO SCH (09:05)
[2020-11-03] MEDS: ATENOLOL 25 MG TABLET PO SCH (09:05)
[2020-11-03] MEDS: ZINC SULFATE 220 MG CAPSULE PO SCH (09:05)
[2020-11-03] MEDS: ENOXAPARIN INJ 40 MG/0.4 ML SYR SQ SCH ×2 (09:06→20:05)
[2020-11-03] MEDS: CHOLECALCIFEROL 1,000 UNITS 25 MCG TAB PO SCH (09:06)
[2020-11-03] MEDS: ATORVASTATIN 40 MG TAB PO SCH (09:06)
[2020-11-03] MEDS: MULTIVITAMIN TAB PO SCH (09:06)
[2020-11-03] MEDS: INSULIN HUMAN NPH SC SCH (09:14)
[2020-11-03] MEDS: INSULIN GLARGINE SOLOSTAR 100 UNITS/ML 3 ML PEN SC SCH (09:17)
[2020-11-03] MEDS: cefTRIAXone SODIUM 2,000 MG in DEXTROSE 5% 50 ML IV SCH (09:27)
--- NOTE | 2020-11-03 14:09 | Pharmacy Report ---
Pharmacy Glycemic Short Note 2 - Date of Service November 03, 2020 - Glycemic Short BSG Results (Last 24 hours): 11/02/20 11/02/20 11/03/20 17:09 20:43 02:04 POC Glucose 150 H 230 H 116 H 11/03/20 11/03/20 08:41 12:53 POC Glucose 101 H 207 H OUTPATIENT ANTIDIABETIC REGIMEN: * Metformin 1 gm BID * A1c 7.7% 10/26/20 ASSESSMENT: 11/03: * Gloria received 138 units of insulin yesterday with acceptable glycemic control * 45 units Lantus + 35 units NPH + 58 units Novolog * Fasting BSG of 101 mg/dL is at goal. * Today is her last day of dexamethasone, therefore I anticipate insulin needs to decrease dramatically in the next 24 hours. * discontinue NPH * discontinue HS dose of Lantus * loosen Novolog parameters starting 11/04 AM 11/01 * 120 units SQ insulin given in last 24 hrs while tolerating a diet * Fasting AM BSG near goal with 80 units basal on board (45 units Lantus + 35 units NPH) - given BSGs are now better controlled will taper back Lantus dose slightly as BSGs may continue to drop as we approach steady-state * Post-prandial BSGs at goal yesterday using current Novolog doses - will continue 10/31 * 126 SQ insulin administered in last 24 hours - of note, while tolerating very little PO * Fasting BSG 153 this AM after receipt of 60 units Lantus + 30 units NPH yesterday. Will begin to scale back Lantus dose given uncertain PO intake. * Will adjust Novolog doses to allow for greater correctional and prandial doses w/ breakfast, lunch and dinner - will providing decreased doses at HS and on overnight checks as the effects of AM dexamethasone do tend to dissipate after 12 hrs in many patients 10/30 * Pt with elevated BSGs likely secondary to dexamethasone administration. * BSG on morning lab this morning 180 mg/dL will increase lantus dose to approximately weight based stress of 3 * Will utilize NPH to help cover steroid prandial effect, given 0.4 units/kg this morning with dexamethasone administration * Lunch BSG elevated, however AM insulin given ~0920, NPH would likely not have peaked with this BSG * Will continue current novolog parameters, tighten if needed. PLAN FOR INPATIENT GLYCEMIC CONTROL: * Hold outpatient oral diabetes medications (metformin) * Basal insulin * Continue Lantus 30 units SQ Q AM * discontinue Lantus scale at bedtime (last dose was 11/02 PM) * discontinue NPH after today's dose * Bolus insulin * NovoLog per scale ACHS and at 0200 * Goal Range: Low 110 mg/dL - High 140 mg/dL * Correction Factor: 10 mg/dL/unit with breakfast, lunch and dinner; 15mcg/dL/unit at HS and w/ overnight checks (only correct HS and overnight if BSG above 160) * Nutritional / Prandial insulin per carb ratio of 1 unit per 3 grams CHO consumed with breakfast, lunch and dinner; 1 unit per 5 grams CHO at HS * Starting 11/04 am: Novolog ACHS, correction factor: 20, carb ratio: 6 PLAN FOR DISCHARGE: * A1c of 7.7 is near goal. Would recommend encouraging lifestyle modifications for improved glycemic control. One could consider the addition of a SGLT2i with evidence of reducing heart failure progression if low A1c goal desired (empagliflozin or canagliflozin)
[2020-11-03] MEDS: amLODIPine BESYLATE 5 MG TAB PO SCH (15:21)
--- NOTE | 2020-11-03 16:51 | Hospitalist Progress Note ---
Date of Service November 03, 2020 Assessment & Plan (1) Pneumonia due to COVID-19 virus: Plan: Acute respiratory failure with hypoxia COVID-19 pneumonia -CXR: Multifocal airspace opacities are unchanged, and likely resent a viral pneumonia. Mild cardiomegaly. Pulmonary hygiene Intolerance to CPAP Appreciate Pulmonary Input Elevated procalcitonin Continue Rocephin, doxycycline Encourage to prone Continue diuresis Procalcitonin trending down Oxygen requirement down to 2 L Wean off of supplemental oxygen as able Completed dexamethasone course Plan for 2 step tomorrow (2) Hypoxia: Plan: Management as above (3) Hypokalemia: Plan: Hypokalemia Hypomagnesemia Replace electrolytes as needed (4) Transaminitis: Plan: Likely secondary to COVID-19 infection Monitor (5) Diabetes mellitus, type II: Plan: HbA1C 7.7 Continue insulin Monitor BGs (6) HTN (hypertension): Plan: Continue amlodipine, atenolol, losartan (7) Chronic diastolic heart failure: Plan: 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 TTE from 04/27 reveals EF of 60 to 64% Hold HCTZ Continue lasix (8) Left bundle branch block: Plan: Chronic (9) Obesity: Plan: weight loss advised (10) DVT prophylaxis: Plan: Lovenox SQ Code Status Full Code Admission and Anticipated Discharge Date Admission Date: October 25, 2020 Subjective Patient was seen and examined States feeling much better today Saturating well on 2L of supplemental oxygen to maintain saturation No significant cough Denies chest pain, dizziness, nausea, abdominal pain No new complaints Review of Systems Review of Systems: All systems reviewed & are unremarkable except as noted in Subjective Physical Exam Physical Exam: Physical Exam: Vitals signs as noted above General Appearance:Morbidly Obese, no apparent distress Head: normocephalic, Atraumatic Eyes: normal inspection, EOMI Neck: supple, Trachea midline Respiratory/Chest: Decreased breath sounds, CTA Cardiovascular: S1, S2, No murmur Abdomen/GI:Soft, Non tender, Bowel sounds present Extremities/Musculoskelatal:normal inspection, no edema Neurologic/Psych:AAOX3, grossly no focal neurological deficits Skin: normal color, warm Results & Data Results & Data ([facility]) Vital Signs (Past 12 Hours) Vital Signs Temp Pulse Resp BP Pulse Ox 11/03/20 15:18 37 C 61 17 120/75 94 09/26/21 11:10 73 93 11/03/20 09:28 95 H 18 134/85 93 11/03/20 06:35 58 L 96 11/03/20 06:16 67 95 Laboratory Results [facility] 11/03/20 04:50 Creatinine 0.68
[2020-11-03] MEDS: ASPIRIN 81 MG ECTAB PO SCH (20:05)
[2020-11-04] MEDS: ENOXAPARIN INJ 40 MG/0.4 ML SYR SQ SCH (07:47)
[2020-11-04] MEDS: ASCORBIC ACID 500 MG TAB PO SCH (07:48)
[2020-11-04] MEDS: ATENOLOL 25 MG TABLET PO SCH (07:48)
[2020-11-04] MEDS: ATORVASTATIN 40 MG TAB PO SCH (07:49)
[2020-11-04] MEDS: cefTRIAXone SODIUM 2,000 MG in DEXTROSE 5% 50 ML IV SCH (07:49)
[2020-11-04] MEDS: CHOLECALCIFEROL 1,000 UNITS 25 MCG TAB PO SCH (07:49)
[2020-11-04] MEDS: ZINC SULFATE 220 MG CAPSULE PO SCH (07:50)
[2020-11-04] MEDS: DOXYCYCLINE HYCLATE 100 MG CAP PO SCH (07:50)
[2020-11-04] MEDS: MULTIVITAMIN TAB PO SCH (07:50)
[2020-11-04] MEDS: FUROSEMIDE 20 MG in SYRINGE 0 ML IV SCH (07:50)
[2020-11-04] MEDS: guaiFENesin 600 MG TABCR PO SCH (07:50)
[2020-11-04] MEDS: LOSARTAN POTASSIUM 50 MG TAB PO SCH (07:51)
[2020-11-04] MEDS: INSULIN ASPART 100 UNITS/ML 3 ML PEN SC SCH ×2 (09:21→13:00)
--- NOTE | 2020-11-04 12:01 | Hospitalist Progress Note ---
Date of Service November 04, 2020 Assessment & Plan (1) Pneumonia due to COVID-19 virus: Plan: Acute respiratory failure with hypoxia COVID-19 pneumonia -CXR: Multifocal airspace opacities are unchanged, and likely resent a viral pneumonia. Mild cardiomegaly. Pulmonary hygiene Intolerance to CPAP Appreciate Pulmonary Input Elevated procalcitonin Received Rocephin, doxycycline Encourage to prone Continue diuresis Procalcitonin trending down Oxygen requirement down to 2 L Wean off of supplemental oxygen as able Completed dexamethasone course 2 step>> Needs 2 L of oxygen with activity (2) Hypoxia: Plan: Management as above (3) Hypokalemia: Plan: Hypokalemia Hypomagnesemia Replace electrolytes as needed (4) Transaminitis: Plan: Likely secondary to COVID-19 infection Monitor (5) Diabetes mellitus, type II: Plan: HbA1C 7.7 Continue insulin Monitor BGs (6) HTN (hypertension): Plan: Continue amlodipine, atenolol, losartan (7) Chronic diastolic heart failure: Plan: 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 TTE from 04/27 reveals EF of 60 to 64% Hold HCTZ Continue lasix (8) Left bundle branch block: Plan: Chronic (9) Obesity: Plan: weight loss advised (10) DVT prophylaxis: Plan: Lovenox SQ Code Status Full Code Admission and Anticipated Discharge Date Admission Date: October 25, 2020 Subjective Patient was seen and examined Only minimal cough Had 2 step earlier today Denies chest pain, dizziness, nausea, abdominal pain Eager to get discharged Review of Systems Review of Systems: All systems reviewed & are unremarkable except as noted in Subjective Physical Exam Physical Exam: Physical Exam: Vitals signs as noted above General Appearance:Morbidly Obese, no apparent distress Head: normocephalic, Atraumatic Eyes: normal inspection, EOMI Neck: supple, Trachea midline Respiratory/Chest: Decreased breath sounds, CTA Cardiovascular: S1, S2, No murmur Abdomen/GI:Soft, Non tender, Bowel sounds present Extremities/Musculoskelatal:normal inspection, no edema Neurologic/Psych:AAOX3, grossly no focal neurological deficits Skin: normal color, warm Results & Data Results & Data ([facility]) Vital Signs (Past 12 Hours) Vital Signs Temp Pulse Pulse Pulse Pulse Pulse Pulse 11/04/20 11:53 36.8 C 73 82 11/04/20 11:00 11/04/20 10:58 80 74 78 67 11/04/20 10:04 11/04/20 07:56 36.8 C 82 Resp Resp Resp Resp Resp BP Pulse Ox 11/04/20 11:53 18 128/81 95 11/04/20 11:00 11/04/20 10:58 22 22 20 18 11/04/20 10:04 95 11/04/20 07:56 18 128/81 95 Pulse Ox Pulse Ox Pulse Ox Pulse Ox Pulse Ox 11/04/20 11:53 11/04/20 11:00 93 11/04/20 10:58 92 87 L 90 90 11/04/20 10:04 11/04/20 07:56
--- NOTE | 2020-11-04 12:51 | Pharmacy Report ---
Pharmacy Glycemic Short Note 2 - Date of Service November 04, 2020 - Glycemic Short BSG Results (Last 24 hours): 11/03/20 11/03/20 11/03/20 12:53 17:35 21:13 POC Glucose 207 H 123 H 185 H 11/04/20 11/04/20 07:46 12:16 POC Glucose 82 135 H OUTPATIENT ANTIDIABETIC REGIMEN: * Metformin 1 gm BID * A1c 7.7% 10/26/20 ASSESSMENT: 11/04: * Patient received total of 135 units of insulin yesterday, of which 30 units Lantus, 35 units NPH to cover steroids * Steroids stopped yesterday, fasting BSG 82 mg/dL - will hold further Lantus for now * Loosened CF/CR since no longer on steroids 11/03: * Gloria received 138 units of insulin yesterday with acceptable glycemic control * 45 units Lantus + 35 units NPH + 58 units Novolog * Fasting BSG of 101 mg/dL is at goal. * Today is her last day of dexamethasone, therefore I anticipate insulin needs to decrease dramatically in the next 24 hours. * discontinue NPH * discontinue HS dose of Lantus * loosen Novolog parameters starting 11/04 AM 11/01 * 120 units SQ insulin given in last 24 hrs while tolerating a diet * Fasting AM BSG near goal with 80 units basal on board (45 units Lantus + 35 units NPH) - given BSGs are now better controlled will taper back Lantus dose slightly as BSGs may continue to drop as we approach steady-state * Post-prandial BSGs at goal yesterday using current Novolog doses - will continue 10/31 * 126 SQ insulin administered in last 24 hours - of note, while tolerating very little PO * Fasting BSG 153 this AM after receipt of 60 units Lantus + 30 units NPH yesterday. Will begin to scale back Lantus dose given uncertain PO intake. * Will adjust Novolog doses to allow for greater correctional and prandial doses w/ breakfast, lunch and dinner - will providing decreased doses at HS and on overnight checks as the effects of AM dexamethasone do tend to dissipate after 12 hrs in many patients 10/30 * Pt with elevated BSGs likely secondary to dexamethasone administration. * BSG on morning lab this morning 180 mg/dL will increase lantus dose to approximately weight based stress of 3 * Will utilize NPH to help cover steroid prandial effect, given 0.4 units/kg this morning with dexamethasone administration * Lunch BSG elevated, however AM insulin given ~0920, NPH would likely not have peaked with this BSG * Will continue current novolog parameters, tighten if needed. PLAN FOR INPATIENT GLYCEMIC CONTROL: * Hold outpatient oral diabetes medications (metformin) * Basal insulin * hold today * Bolus insulin * NovoLog per scale ACH * Starting 11/04 am: Novolog ACHS, correction factor: 20, carb ratio: 7 PLAN FOR DISCHARGE: * A1c of 7.7 is near goal. Would recommend encouraging lifestyle modifications for improved glycemic control. One could consider the addition of a SGLT2i with evidence of reducing heart failure progression if low A1c goal desired (empagliflozin or canagliflozin)
--- NOTE | 2020-11-04 14:25 | Discharge Summary ---
Date of Service November 04, 2020 Admission HPI Per Admitting Provider This is a 69-year-old female with PMH of chronic diastolic heart failure, type 2 diabetes, hypertension, dyslipidemia, chronic left bundle branch block, history of aortic valve replacement other medical problems listed below who presents with worsening shortness of breath and cough x10 days. First developed a runny nose with congestion and dry cough as well as fever and body aches. Was exposed to covid positive daughter at beginning of the month. Patient tested positive in outpatient clinic on 10/21. Is not vaccinated. Cough has since become more productive and patient has been short of breath for past 3 days, prompting her to come to the hospital today. Still has sense of taste and smell. Decreased appetite but tolerating fluids. Has lost a few pounds over the past week. Denies any swelling in lower extremities. No headache, lightheadedness, chest pain, nausea, vomiting, abdominal pain, dysuria, diarrhea or constipation. Admission Exam Per Admitting Provider Physical Exam Physical Exam: (per Dr. Clifton) CONSTITUTIONAL: obese, vitals as above, generally well-appearing, NAD EYES: normal conjunctivae, no scleral icterus ENT: external ear and nose normal, oropharynx clear, MMM RESPIRATORY: min crackles at bases bilaterally, no wheezing or rales, good diaphragmatic excursion and moving air well. CARDIOVASCULAR: regular rate and rhythm, S1 and 2 heard without murmurs, gallops or rubs, no JVD, no peripheral edema GASTROINTESTINAL: soft, nontender, protuberant, ND MUSCULOSKELETAL: strength 5/5 throughout, head is normocephalic and atraumatic SKIN: warm and dry NEUROLOGIC: CN 2-12 grossly intact, normal cognition, normal speech, no tremor, no gross focal deficits. PSYCHIATRIC: alert cooperative and oriented to person, place and time. Euthymic mood, makes good eye contact, language grossly intact, recent and remote memory grossly intact. Principal Diagnosis Acute respiratory failure with hypoxia COVID-19 pneumonia Discharge Data Allergies Allergy/AdvReac Type Severity Reaction Status Date / Time No Known Allergies Allergy Unknown ? Verified 10/25/20 14:49 Consultations 10/25/20 14:42 ED Decision to Admit Stat 10/30/20 08:13 Consult Pulmonology Routine Hospital Course (1) Pneumonia due to COVID-19 virus: Acute respiratory failure with hypoxia COVID-19 pneumonia -CXR: Multifocal airspace opacities are unchanged, and likely resent a viral pneumonia. Mild cardiomegaly. Pulmonary hygiene Intolerance to CPAP Appreciate Pulmonary Input Elevated procalcitonin Received Rocephin, doxycycline Encourage to prone Continue diuresis Procalcitonin trending down Oxygen requirement down to 2 L Wean off of supplemental oxygen as able Completed dexamethasone course 2 step>> Needs 2 L of oxygen with activity (2) Hypoxia: Management as above (3) Hypokalemia: Hypokalemia Hypomagnesemia Replace electrolytes as needed (4) Transaminitis: Likely secondary to COVID-19 infection Monitor (5) Diabetes mellitus, type II: HbA1C 7.7 Continue insulin Monitor BGs (6) HTN (hypertension): Continue amlodipine, atenolol, losartan (7) Chronic diastolic heart failure: 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 TTE from 04/27 reveals EF of 60 to 64% Hold HCTZ Continue lasix (8) Left bundle branch block: Chronic (9) Obesity: weight loss advised (10) DVT prophylaxis: Lovenox SQ Code Status Full Code Total Time Total Time Spent Total Time Spent (In Minutes): 42 minutes Discharge Plan Discharge Items Patient Disposition: Home - Self-Care Reason For Visit: COVID, HYPOXIA Discharge Diagnosis: Acute respiratory failure with hypoxia COVID-19 pneumonia Activity: Per Instructions section Exercise/Sports: Gradually increase as tolerated Non-emergency contact: Primary Care Provider Call non-emergency contact if: you have any medication questions, your symptoms worsen, your pain is concerning for you and you have a fever Follow-up/Referrals: Stan Ybarra MD [Primary Care Provider] - (Date & Time 11/11/2020 9:00 AM Provider Susan Hay MD [facility] PLEASE NOTE THAT THIS IS A TELEHEALTH APPOINTMENT. PLEASE FOLLOW THE INSTRUCTIONS PROVIDED IN YOUR EMAIL. 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 Please call if you have any questions or problems. You can reach a [facility] hospitalist on duty at [facility] 24 hours a day by calling [phone] Home Isolation COVID-19 Instructions The following information about Home Isolation is from the CDC Website: https://www.cdc.gov/coronavirus/2019-ncov/hcp/uhewcdgr-kswwxcx-qwxcby.html Stay home except to get medical care People who are mildly ill with COVID-19 are able to isolate at home during their illness. You should restrict activities outside your home, except for getting medical care. Do not go to work, school, or public areas. Avoid using public transportation, ride-sharing, or taxis. Separate yourself from other people and animals in your home People: As much as possible, you should stay in a specific room and away from other people in your home. Also, you should use a separate bathroom, if available. Animals: You should restrict contact with pets and other animals while you are sick with COVID-19, just like you would around other people. Although there have not been reports of pets or other animals becoming sick with COVID-19, it is still recommended that people sick with COVID-19 limit contact with animals until more information is known about the virus. When possible, have another member of your household care for your animals while you are sick. If you are sick with COVID-19, avoid contact with your pet, including petting, snuggling, being kissed or licked, and sharing food. If you must care for your pet or be around animals while you are sick, wash your hands before and after you interact with pets and wear a face mask. Call ahead before visiting your doctor If you have a medical appointment, call the healthcare provider and tell them that you have or may have COVID-19. This will help the healthcare providers office take steps to keep other people from getting infected or exposed. Wear a face mask You should wear a face mask when you are around other people (e.g., sharing a room or vehicle) or pets and before you enter a healthcare providers office. If you are not able to wear a face mask (for example, because it causes trouble breathing), then people who live with you should not stay in the same room with you, or they should wear a face mask if they enter your room. Cover your coughs and sneezes Cover your mouth and nose with a tissue when you cough or sneeze. Throw used tissues in a lined trash can. Immediately wash your hands with soap and water for at least 20 seconds or, if soap and water are not available, clean your hands with an alcohol-based hand environmental protection specialist that contains at least 60% alcohol. Clean your hands often Wash your hands often with soap and water for at least 20 seconds, especially after blowing your nose, coughing, or sneezing; going to the bathroom; and before eating or preparing food. If soap and water are not readily available, use an alcohol-based hand environmental protection specialist with at least 60% alcohol, covering all surfaces of your hands and rubbing them together until they feel dry. Soap and water are the best option if hands are visibly dirty. Avoid touching your eyes, nose, and mouth with unwashed hands. Avoid sharing personal household items You should not share dishes, drinking glasses, cups, eating utensils, towels, or bedding with other people or pets in your home. After using these items, they should be washed thoroughly with soap and water. Clean all high-touch surfaces everyday High touch surfaces include counters, tabletops, doorknobs, bathroom fixtures, toilets, phones, keyboards, tablets, and bedside tables. Also, clean any surfaces that may have blood, stool, or body fluids on them. Use a household cleaning spray or wipe, according to the label instructions. Labels contain instructions for safe and effective use of the cleaning product including precautions you should take when applying the product, such as wearing gloves and making sure you have good ventilation during use of the product. Monitor your symptoms Seek prompt medical attention if your illness is worsening (e.g., difficulty breathing).Beforeseeking care, call your healthcare provider and tell them that you have, or are being evaluated for, COVID-19. Put on a face mask before you enter the facility. These steps will help the healthcare providers office to keep other people in the office or waiting room from getting infected or exposed. Ask your healthcare provider to call the local or state health department. Persons who are placed under active monitoring or facilitated self- monitoring should follow instructions provided by their local health department or occupational health professionals, as appropriate. When working with your local health department check their available hours. If you have a medical emergency and need to call 911, notify the dispatch personnel that you have, or are being evaluated for COVID-19. If possible, put on a face mask before emergency medical services arrive. Discontinuing home isolation Patients with confirmed COVID-19 should remain under home isolation precautions until the risk of secondary transmission to others is thought to be low. The decision to discontinue home isolation precautions should be made on a [id number] basis, in consultation with healthcare providers and state and local health departments. Coronavirus disease 2019 (COVID-19) is a virus that causes a respiratory illness. It is caused by a coronavirus called 2019 novel coronavirus (2019- nCoV). There are many types of coronavirus. Coronaviruses are a very common cause of bronchitis. They may sometimes cause lung infection(pneumonia). Symptoms can range from mild to severe respiratory illness. These viruses are also foundin some animals. COVID-19 was first found in people in [facility], in late 2018. In 2020, several cases of COVID-19 have been confirmed in the [place] Public health officials are working to find the source. How the virus spreads is not yet fully known. It may be spread through droplets of fluid that a person coughs or sneezes into the air. It may be spread if you touch a surface with virus on it, such as a handle or object, and then touch your mouth. What are the symptoms of COVID-19? Some people have no symptoms or mild symptoms. Symptoms may appear 2 to 14 days after contact with the virus. Symptoms can include: Fever Coughing Trouble breathing What are possible complications from COVID-19? In many cases, this virus can cause infection (pneumonia) in both lungs. In some cases, this can cause . How is COVID-19 diagnosed? Your healthcare provider will ask about your symptoms. He or she will also ask about your recent travel and contact with sick people. Testing for the virus is only done through the CDC. If yourhealthcare provider thinks you may have COVID- 19, he or she will work with your local health department and the CDC on testing. Follow all instructions from your healthcare provider. COVID-19 is diagnosed by: Nasal and throat swab. A cotton-tipped swab is wiped inside your nose or throat. This is done to check for viruses in your nasal mucus. Sputum culture. A small sample of mucus coughed from your lungs (sputum) is collected if you have a cough. It is checked for the virus. How is COVID-19 treated? There is currently no medicine to treat the virus. Treatment is done to help your body while it fights the virus. This is known as supportive care. Supportive care may include: Pain medicine. These include acetaminophen and ibuprofen. They are used to help ease pain and reduce fever. Bed rest. This helps your body fight the illness. For severe illness, you may need to stay in the hospital. Care during severe illness may include: IV (intravenous) fluids.These are given through a vein to help keep your body hydrated. Oxygen. Supplemental oxygen or ventilation with a breathing machine (ventilator) may be given. This is done to keep enough oxygen in your body. Are you at risk for COVID-19? If youve been to a place where people have been sick with this virus, you are at risk for infection. You are at risk if you: Recently traveled to an affected area Had contact with a sick person who recently traveled to this area Had contact with a person who was diagnosed with COVID-19 How can COVID-19 be prevented? There is no vaccine yet. The best prevention is to not have contact with the virus. The CDC advises that people should not travel to areas where there are COVID-19 outbreaks right now for any reason that is not urgent. To help prevent spreading the infection, wash your hands often, or use an alcohol-basedhand environmental protection specialist. If you are in an area with COVID-19: Wash your hands often. Or use an alcohol-based hand environmental protection specialist often. Only touch your eyes, nose, or mouth with clean hands. Dont have contact with people who are sick. Follow local instructions about being in public. For example, you may be told to not use public transport for a period of time. Stay away from markets that have live or animals. Wash your hands after touching any animals. Don't touch animals that may be sick. Dont share eating or drinking tools with sick people. Dont kiss someone who is sick. Clean surfaces often with disinfectant. If you were in an area with COVID-19 in the last 14 days: Call your healthcare provider. He or she can talk with local health staff to see what action may be needed. Follow all instructions from your provider. Take your temperature every morning and evening for at least 14 days. This is to check for fever. Keep a record of the readings. Keep watch for symptoms of the virus. Tell your provider right away if you have symptoms. If you were in an area with COVID-19 and have a fever or other symptoms: Dont panic. Keep in mind that other illnesses can cause similar symptoms. Stay away from work, school, and public places. Limit physical contact with family members. Don't kiss anyone or share eating or drinking utensils. Clean surfaces you touch with disinfectant. This is to help prevent the virus from spreading. Call your healthcare provider. Explain that you have been exposed to COVID-19 and have symptoms. Do this before going to any hospital. Wait for instructions. Keep in mind that healthcare staff may wear protective equipment such as masks, gowns, gloves, and eye protection. You may be put in a separate room. This is to prevent the possible virus from spreading. Tell the healthcare staff about recent travel. This includes local travel on public transport. Staff may need to find other people you have been in contact with. Follow all instructions the healthcare staff give you. If you have been diagnosed with COVID-19 Follow all instructions from your healthcare provider. Dont leave your home, except to get medical care. Call your healthcare providers office before going. They can prepare and give you instructions. This will help prevent the virus from spreading. Dont go to work, school, or public areas. Dont use public transport or taxis. Stay away from other people in your home. Have them wear face masks around you. Dont share household items or food. Wear a face mask if you can. This includes at home or in a medical facility. Cover your face with a tissue when you cough or sneeze. Throw the tissue away. Wash your hands. Wash your hands often. Caregivers should: Follow all instructions from healthcare staff. Wear a face mask and protective clothing as advised. Wash hands often. Keep track of the sick persons symptoms. Clean surfaces, fabrics, and laundry thoroughly. Keep other people away from the sick person. When to call your healthcare provider Call your healthcare provider: If youve recently traveled and have symptoms If you have been diagnosed with COVID-19 and your symptoms are worse To learn more To find out more about COVID-19, visit the CDC website at www.cdc.gov/coronavirus/2019-ncov/index.html. [employer]. [address] [place] [address]. All rights reserved. This information is not intended as a substitute for professional medical care. Always follow your healthcare professional's instructions. This information has been adapted from [employer] Pending Studies at Discharge: No Stand-Alone Forms: [facility] [employer], Smoking Cessation Medications and DC Order Prescriptions: New doxycycline hyclate 100 mg Capsule 100 mg PO BID Qty: 4 RF: 0 cefuroxime axetil 500 mg tablet 500 mg PO BID Qty: 4 RF: 0 Continued multivitamin [Daily Multi-Vitamin] Tablet 1 tab PO QAM RF: 0 losartan [Cozaar] 100 mg tablet 100 mg PO QAM RF: 0 atenolol [Tenormin] 25 mg tablet 25 mg PO QAM RF: 0 amlodipine [Norvasc] 5 mg tablet 5 mg PO QDD RF: 0 atorvastatin [Lipitor] 40 mg tablet 40 mg PO QAM RF: 0 aspirin [Aspirin Low Dose] 81 mg Tablet,Delayed Release (Dr/Ec) 81 mg PO HS RF: 0 triamcinolone acetonide [Triderm] 0.1 % cream 1 applic TOPICAL BID RF: 0 metformin 1,000 mg tablet 1,000 mg PO BID RF: 0 hydrochlorothiazide 25 mg tablet 25 mg PO QAM RF: 0 cinnamon bark [Cinnamon] 500 mg Capsule 500 mg PO DAILY RF: 0 omega-3 fatty acids Capsule 1,000 mg PO BID RF: 0 Discharge Orders: Discharge Order (Routine); Ordered 11/04/20 Ordered By: David Tinajero/Other Patient Handouts: A1C, Managing Type 2 Diabetes Admission Data Admit Date/Time: 10/25/20 15:04 Attending Provider: David Sharma Admit Provider: Missy Clifton Primary Care Provider: Stan Ybarra Other Providers: Missy Clifton ; Mile Betancourt Other Interventions: Discharge Summary Assessment (RN) Last Done: 11/04/20 11:53
== END 2020-11-04 14:46 | disposition home or self-care (01) | DRG 177 ==
LOC: ED 09:49 → 2E 15:04 → SUATTDRO 15:04 → 2E 18:06 → 3W 11-01 11:24

== ENCOUNTER 2023-04-19 10:02 | Observation (INO) ==
--- NOTE | 2023-01-21 12:36 | PAT Medication Instructions ---
Medication Instructions Date of Service January 21, 2023 Home Medications losartan 100 mg tablet (Cozaar) 100 mg PO QAM multivitamin (Daily Multi-Vitamin tablet) 1 tab PO QAM amlodipine 5 mg tablet (Norvasc) 5 mg PO QPM aspirin 81 mg tablet,delayed release (Go Low Dose Aspirin) 81 mg PO HS atenolol 25 mg tablet (Tenormin) 25 mg PO QAM atorvastatin 40 mg tablet (Lipitor) 40 mg PO QAM cinnamon bark 500 mg capsule (Cinnamon) 500 mg PO QAM hydrochlorothiazide 25 mg tablet 25 mg PO QAM metformin 1,000 mg tablet 1,000 mg PO BID omega-3 fatty acids 1,000 mg PO BID STOP taking 2 weeks before surgery (or as soon as possible if surgery is within 2 weeks) cinnamon bark 500 mg capsule (Cinnamon) 500 mg PO QAM omega-3 fatty acids 1,000 mg PO BID DO NOT take the morning of surgery losartan 100 mg tablet (Cozaar) 100 mg PO QAM multivitamin (Daily Multi-Vitamin tablet) 1 tab PO QAM hydrochlorothiazide 25 mg tablet 25 mg PO QAM metformin 1,000 mg tablet 1,000 mg PO BID Take morning of surgery With a small sip of water, OTHERWISE NOTHING TO EAT OR DRINK AFTER MIDNIGHT: atenolol 25 mg tablet (Tenormin) 25 mg PO QAM atorvastatin 40 mg tablet (Lipitor) 40 mg PO QAM Take evening before surgery amlodipine 5 mg tablet (Norvasc) 5 mg PO QPM aspirin 81 mg tablet,delayed release (Go Low Dose Aspirin) 81 mg PO HS (continue as normal unless told otherwise by surgeon) metformin 1,000 mg tablet 1,000 mg PO BID Other Notes If you have any questions please call us at [phone] or [phone] or [phone] or [phone]
--- NOTE | 2023-01-26 13:30 | Anesthesiology Consultation ---
Date of Service January 26, 2023 Assessment & Plan (1) Encounter for pre-operative examination: Chart Review Chart Review: Acceptable Risk for Surgery and Patient NOT seen in Pre Admission Testing - Check BSG AM DOS - Patient is not an OPJ candidate (currently 23 hours obs) Per PAT appt on 01/26/23, no recent illness/disease exposures, illness related symptoms, or recent illness/disease positive tests. Will leave to surgeon's di scretion if preop Covid testing needed Patient seen by PCP 01/18/23= seen for routine medical follow up and also preop - tentatively scheduled for left SEEMA. Underwent TAVR procedure 09/15/2022. Previous aortic valve replacement 2008 due to congenital bicuspid aortic valve with severe . Did well with TAVR procedure and has been cleared by Dr. Henderson to proceed with orthopedic surgery. As long as her preanesthesia testing is unremarkable, I do not think any further testing is warranted as the patient would be considered medically optimized to proceed with hip replacement surgery. Diabeteshas never been poorly controlled. Nevertheless we will try to do tighter control to help with triglycerides. Probably will not happen until more physically active after hip replacement. Hypertensioncontrolled. Status post TAVR- cardiac surgeon cleared patient ofr surgery. Follow up in six months (Preop testing showed no acute issues from 01/26/23) Per cardio phone note 11/19/22= Per Dr. Henderson (CT surgeon)- TAVR is stable. No further testing is warranted. Okay to proceed with hip surgery. Last seen by cardiology ([facility]) 10/19/2022 = patient 1 month postop TAVR. History of severe bioprosthetic aortic valve stenosis. Underwent TAVR 09/15/2022. Tolerated procedure well. No immediate concerns postop. Echo shows stable TAVR gradients. Okay to increase activity. Recommend cardiac rehab however due to orthopedic limitations patient does not feel she is able to complete. Continue aspirin indefinitely. Echo completed today. As long as TAVR gradients are stable okay to proceed with preoperative assessment for hip replacement surgery. No contraindications to proceeding with colonoscopy as scheduled. Chronic diastolic CHFeuvolemic. HypertensionBP controlled. Left bundle branch blockchronic. Follow-up in 1 year. History Surgery Operation Date: 02/25/23 07:15 Proposed Procedures p Left Total Hip Arthroplasty Anterior Approach - Fabricio Fuller MD Height/Weight Height: 5 ft 3 in Weight: 113.6 kg Allergies Allergy/AdvReac Type Severity Reaction Status Date / Time lisinopril AdvReac Mild Cough Verified 01/21/23 08:57 Medications Home Medications Medication Instructions Recorded Confirmed Last Taken losartan 100 mg tablet (Cozaar) 100 mg PO QAM 08/22/18 01/21/23 10/24/20 multivitamin (Daily Multi-Vitamin 1 tab PO QAM 08/22/18 01/21/23 10/24/20 tablet) amlodipine 5 mg tablet (Norvasc) 5 mg PO QPM 10/25/20 01/21/23 10/24/20 aspirin 81 mg tablet,delayed 81 mg PO HS 10/25/20 01/21/23 10/24/20 release (Go Low Dose Aspirin) atenolol 25 mg tablet (Tenormin) 25 mg PO QAM 10/25/20 01/21/23 10/24/20 atorvastatin 40 mg tablet (Lipitor) 40 mg PO QAM 10/25/20 01/21/23 10/24/20 cinnamon bark 500 mg capsule 500 mg PO QAM 10/25/20 01/21/23 Unknown (Cinnamon) hydrochlorothiazide 25 mg tablet 25 mg PO QAM 10/25/20 01/21/23 10/24/20 metformin 1,000 mg tablet 1,000 mg PO BID 10/25/20 01/21/23 10/24/20 omega-3 fatty acids 1,000 mg PO BID 10/25/20 01/21/23 Unknown Past Medical History Medical History Bicuspid aortic valve with severe - s/p AVR 2008 subsequent TAVR 09/15/22 Spinal stenosis of lumbar region Osteoarthritis History of COVID-2020 - treated inpatient [facility] for 11 days - no ventilator needed. symptoms: cough and SOB, treated with oxygen. resolved-no current issues. Left bundle branch block Chronic per cardio records Diabetes mellitus, type II Chronic diastolic heart failure HTN (hypertension) Exercise / Class Metabolic Activity III < 4 Walking/Shop/Light housework (no chest pain or SOB with flat surface ambulation- activity limited by hip pain- uses cane ) Past Family History Family History Sister FHx: lung cancer smoker Other Heart disease No family history of adverse response to anesthesia Past Surgical History Surgical History History of cardiac catheterization 2008 and 08/2022- angiographically normal coronary arteries History of esophagogastroduodenoscopy (EGD) History of colonoscopy History of bilateral tubal ligation S/P TAVR (transcatheter aortic valve replacement) [facility] in September 2022 - follows with cardiology [facility]. S/P hip replacement Right (2018) H/O aortic valve replacement prosthetic valve in 2008 at [facility] [place] Past Anesthesia History No Hx of Anesthesia Complications and No Family Hx of Anesthesia Complications History of PONV No Hx of PONV and No Hx of Motion Sickness Social History Smoking Status: Never smoker Do You Dip or Chew Tobacco: No Hx Alcohol Use: Yes alcohol intake frequency: holidays/special occasions only Hx Substance Use: No substance use type: does not use Review of Systems - Occ reflux - mild - relieved with baking soda Patient denies chest pain, shortness of breath, dyspnea on exertion, cough, wheezing, palpitations. No hx of seizures, stroke, SC, apnea/snoring. No hx of blood clots or blood transfusions Physical Exam Constitutional no acute distress ENMT Mouth: no TMJ clicking Thyromental Distance: < 3.5 Finger Breadths (3.0) Mallampati Class: III Full dentures on top and bottom Neck + limited neck extension (mild) Respiratory normal respiratory effort; no respiratory distress Auscultation: lungs clear to auscultation bilaterally; no wheezes Cardiovascular Rate/Rhythm: regular rate and regular rhythm Heart Sounds: + murmur (IV/ murmu) Vessels: + carotid bruit (presumed radiation from murmur bilaterally ) Musculoskeletal Spine: no pain with cervical ROM Extremities: extremities normal to inspection Psychiatric Orientation: alert Lab Results Anesthesia Preop Results Results Anesthesia Widget: WBC 6.71 K/ul (4.8-10.8) 01/26/23 Hgb 12.9 g/dl (12.0-16.0) 01/26/23 Hct 39.5 % (37.0-47.0) 01/26/23 Plt 216 K/uL (130-400) 01/26/23 Na 138 mmol/L (136-145) 01/26/23 K 4.0 mmol/L (3.5-5.1) 01/26/23 Cl 100 mmol/L (98-107) 01/26/23 CO2 28 mmol/L (21-32) 01/26/23 BUN 20 mg/dl (6-23) 01/26/23 Creat 0.78 mg/dl (0.6-1.2) 01/26/23 Glucose Level 245 mg/dl (70-99(Fasting)) H 01/26/23 PT 10.8 Seconds (9.0-12.0) 01/26/23 PTT 25 Seconds (21-31) 01/26/23 INR 1.0 (0.9-1.1) 01/26/23 Urine Color Yellow 01/26/23 Urine Appearance Clear (Clear) 01/26/23 Urine pH 6.0 (4.5-7.5) 01/26/23 Urine Specific [place] 1.020 (1.000-1.030) 01/26/23 Urine Protein Negative (Negative) 01/26/23 Urine Glucose (UA) Negative (Negative) 01/26/23 Urine Ketones Trace (Negative) H 01/26/23 Urine Blood Negative (Negative) 01/26/23 Urine Nitrite Negative (Negative) 01/26/23 Urine Bilirubin Negative (Negative) 01/26/23 Urine Urobilinogen Negative (Negative) 01/26/23 Urine Leukocyte Esterase Trace (Negative) H 01/26/23 Urine WBC (Auto) 5-10 /hpf (0-5) H 01/26/23 Urine RBC (Auto) 0-4 /hpf (0-4) 01/26/23 Urine Hyaline Casts (Auto) 0 /lpf (0-5) 01/26/23 Urine Epithelial Cells (Auto) >30 /lpf (0-5) H 01/26/23 Urine Bacteria (Auto) Negative (Negative) 01/26/23 Blood Type A Positive 01/26/23 Antibody Screen NEGATIVE 01/26/23 Testing Laboratory Results 01/18/23= HGB A1C: 7.1 Electrocardiogram Date: 10/19/22 Normal sinus rhythm with sinus arrhythmia at 85 bpm Left axis deviation Left bundle branch block When compared to EKG from September 23, 2022no significant change was found per cardio Chest X-Ray Date: 01/26/23 Findings: + NAD FINDINGS: Median sternotomy wires are unchanged. Aortic valvular replacement is seen. Reticular interstitial opacities are seen. No evidence of pleural effusion or pneumothorax Echocardiogram Date: 10/19/22 EF: 55-59% LV Function: normal Other Findings: + LVH (moderate/concentric ) and + diastolic dysfunction (Grade 1) Septal motion is consistent with left bundle branch block Regional LV wall motion is otherwise normal Patient is status post TAVR with CoreValve prosthetic valve. Significant AV prosthesis regurgitation is absent. Peak AV velocity through TAVR is 2.9 m/s. Mean systolic gradient through the TAVR is 20.2 mmHg Moderate calcification of posterior mitral valve leaflet and annulus. Moderate MR. Cardiac Catheterization Date: 08/12/22 Normal coronary arteries by angiography
--- NOTE | 2023-02-23 15:55 | History & Physical Report ---
Date of Service February 23, 2023 Assessment & Plan (1) Degenerative joint disease of left hip: Plan: patient will be admitted for elective hip replacement surgery overnight stay and then likely home with home health (2) BMI 40.0-44.9, adult: History of Present Illness Chief Complaint: female left hip pain Primary Care Provider: Stan Ybarra MD Patient is an obese 72-year-old female with greater than 1 year history of left hip and groin pain. She has a history of previous right total hip replacement surgery. She now has left hip pain at 8 out of 10 associated with decreased range of motion she cannot tie her shoe and sock and has limited standing and walking tolerance. She has trouble with stairs. She requires a cane for ambulation. She had originally been scheduled for surgery in the past but was postponed for the need of cardiac clearance she has now since been cleared and is admitted for elective hip replacement surgery. She does have a history of type 2 diabetes her A1c's have been in the low sevens of but are being rechecked prior to surgery. Allergies Allergy/AdvReac Type Severity Reaction Status Date / Time lisinopril AdvReac Mild Cough Verified 01/21/23 08:57 Home Medications Medication Instructions Recorded Confirmed Type losartan 100 mg tablet (Cozaar) 100 mg PO QAM 08/22/18 01/21/23 History multivitamin (Daily Multi-Vitamin 1 tab PO QAM 08/22/18 01/21/23 History tablet) amlodipine 5 mg tablet (Norvasc) 5 mg PO QPM 10/25/20 01/21/23 History aspirin 81 mg tablet,delayed 81 mg PO HS 10/25/20 01/21/23 History release (Go Low Dose Aspirin) atenolol 25 mg tablet (Tenormin) 25 mg PO QAM 10/25/20 01/21/23 History atorvastatin 40 mg tablet (Lipitor) 40 mg PO QAM 10/25/20 01/21/23 History cinnamon bark 500 mg capsule 500 mg PO QAM 10/25/20 01/21/23 History (Cinnamon) hydrochlorothiazide 25 mg tablet 25 mg PO QAM 10/25/20 01/21/23 History metformin 1,000 mg tablet 1,000 mg PO BID 10/25/20 01/21/23 History omega-3 fatty acids 1,000 mg PO BID 10/25/20 01/21/23 History Past Med/Surg History Medical History Bicuspid aortic valve with severe - s/p AVR 2008 subsequent TAVR 09/15/22 Spinal stenosis of lumbar region Osteoarthritis History of COVID-19 2020 - treated inpatient [facility] for 11 days - no ventilator needed. symptoms: cough and SOB, treated with oxygen. resolved-no current issues. Left bundle branch block Chronic per cardio records Diabetes mellitus, type II Chronic diastolic heart failure HTN (hypertension) Surgical History History of cardiac catheterization 2008 and 08/2022- angiographically normal coronary arteries History of esophagogastroduodenoscopy (EGD) History of colonoscopy History of bilateral tubal ligation S/P TAVR (transcatheter aortic valve replacement) [facility] [place] in September 2022 - follows with cardiology [facility] [place]. S/P hip replacement Right (2018) H/O aortic valve replacement prosthetic valve in 2008 at [facility] [place] Family History Sister FHx: lung cancer smoker Other Heart disease No family history of adverse response to anesthesia Social History Smoking Status: Never smoker Second Hand Exposure: No; Do You Dip or Chew Tobacco: No; Tobacco Cessation Education Requested by Patient: No Hx Alcohol Use: Yes Hx Substance Use: No Preferred Language: Croatian Communication Ability: Effective Hand Roller Engraver Required: No Beliefs That Will Affect Care: None marital status: Current Living Situation: Spouse current occupational status: employed Other Information That Helps Us Care for You: No Feels Safe at Home: Yes Safety Concerns: Feels Safe At This Time Assistive Devices: Denture - Upper, Denture - Lower and Glasses Review of Systems Review of Systems: Hip pain Physical Exam Physical Exam: Obese woman who appears to be her stated age. HEENT: NCAT, EOMI, PERRLA. Neck: Negative bruits Heart: Regular rate and rhythm 3/6 systolic murmur Lungs: Clear and present in all valle Abdomen: Obese soft nontender bowel sounds positive Extremities: Left hip is 5 mm long passive range of motion is 5 to 85 degrees flexion -15 degrees internal rotation all which reproduces groin pain. Neurological and vascular: Intact Results & Data Results & Data Vital Signs (Past 12 Hours) Weight 113 kg BMI 42 Blood pressure 120/70 Pulse 84
--- NOTE | 2023-04-14 15:40 | History & Physical Report ---
Date of Service April 14, 2023 Assessment & Plan (1) Degenerative joint disease of left hip: Plan: patient will be admitted for elective hip replacement surgery overnight stay and then likely home with home [facility] (2) BMI 40.0-44.9, adult: History of Present Illness Chief Complaint: Left hip pain Primary Care Provider: Stan Ybarra MD Patient is a morbidly obese 72-year-old female with a greater than 1 year history of left hip and groin pain. She has a history of known severe arthritis of the hip with pain 8 out of 10. She cannot tie her shoe and sock has limited range of motion and limited standing and walking tolerance which requires a cane. She had been scheduled for surgery in February of this year but her surgery was postponed because of a rising hemoglobin A1c. She has a history of type 2 diabetes. Her A1c has now improved and is in the low sevens and she has been cleared by both medicine and cardiology. She is a little admitted for elective hip replacement. Allergies Allergy/AdvReac Type Severity Reaction Status Date / Time lisinopril AdvReac Mild Cough Verified 04/07/23 09:05 Home Medications Medication Instructions Recorded Confirmed Type losartan 100 mg tablet (Cozaar) 100 mg PO QAM 08/22/18 04/07/23 History multivitamin (Daily Multi-Vitamin 1 tab PO QAM 08/22/18 04/07/23 History tablet) amlodipine 5 mg tablet (Norvasc) 5 mg PO QPM 10/25/20 04/07/23 History aspirin 81 mg tablet,delayed 81 mg PO HS 10/25/20 04/07/23 History release (Go Low Dose Aspirin) atenolol 25 mg tablet (Tenormin) 25 mg PO QAM 10/25/20 04/07/23 History atorvastatin 40 mg tablet (Lipitor) 40 mg PO QAM 10/25/20 04/07/23 History cinnamon bark 500 mg capsule 500 mg PO QAM 10/25/20 04/07/23 History (Cinnamon) hydrochlorothiazide 25 mg tablet 25 mg PO QAM 10/25/20 04/07/23 History metformin 1,000 mg tablet 1,000 mg PO BID 10/25/20 04/07/23 History omega-3 fatty acids 1,000 mg PO BID 10/25/20 04/07/23 History Past Med/Surg History Medical History History of kidney stones passed on own 2019 Bicuspid aortic valve with severe - s/p AVR 2008 subsequent TAVR 09/15/22 Spinal stenosis of lumbar region Osteoarthritis History of COVID-19 2020 - treated inpatient [facility] for 11 days - no ventilator needed. symptoms: cough and SOB, treated with oxygen. resolved-no current issues. Left bundle branch block Chronic per cardio records Diabetes mellitus, type II Chronic diastolic heart failure HTN (hypertension) Surgical History History of cardiac catheterization 2008 and 08/2022- angiographically normal coronary arteries History of esophagogastroduodenoscopy (EGD) History of colonoscopy History of bilateral tubal ligation S/P TAVR (transcatheter aortic valve replacement) [facility] in September 2022 - follows with cardiology [facility]. S/P hip replacement Right (2018) H/O aortic valve replacement prosthetic valve in 2008 at [facility] [place] Family History Sister FHx: lung cancer smoker Other Heart disease No family history of adverse response to anesthesia Social History Smoking Status: Never smoker Second Hand Exposure: No; Do You Dip or Chew Tobacco: No; Hx Alcohol Use: Yes Hx Substance Use: No Preferred Language: Divehi Communication Ability: Effective Neonatal Specialist Required: No Beliefs That Will Affect Care: None marital status: Current Living Situation: Spouse current occupational status: employed Feels Safe at Home: Yes Assistive Devices: Cane, Denture - Upper, Denture - Lower and Glasses Review of Systems Review of Systems: Hip pain Physical Exam Physical Exam: Obese woman who appears to be her stated age. HEENT: NCAT, EOMI, PERRLA. Neck: Negative bruits Heart: Regular rate and rhythm 3/6 systolic murmur Lungs: Clear and present in all valle Abdomen: Obese soft nontender bowel sounds positive Extremities: Left hip is 5 mm long passive range of motion is 5 to 85 degrees flexion -15 degrees internal rotation all which reproduces groin pain. Neurological and vascular: Intact Results & Data Results & Data Vital Signs (Past 12 Hours) Blood pressure 120/70 Pulse 84
[~2023-04-19 10:02] MED LIST: ATENOLOL 25 MG TABLET PO PRN; BUPIVACAINE 0.5 % 5 MG/1 ML PF 10ML VIAL ONE; LR 500ML BOLUS, THEN 15ML/HR IV SCH
[2023-04-19] MEDS: ACETAMINOPHEN 500 MG TAB PO SCH (10:51)
[2023-04-19] MEDS: CeleBREX 200 MG CAP PO SCH ×2 (10:52→20:39)
[2023-04-19] MEDS: FAMOTIDINE 20 MG TAB PO SCH (10:52)
[2023-04-19] MEDS: GABAPENTIN 300 MG CAP PO SCH (10:53)
[2023-04-19] MEDS: METOCLOPRAMIDE HCL 10 MG TABLET PO SCH (10:53)
[2023-04-19] MEDS: LR 500ML BOLUS, THEN 15ML/HR IV SCH (10:54)
[2023-04-19] MEDS: LR 60ML/HR IV SCH (10:54)
[2023-04-19] MEDS: traMADol HCL 50 MG TABLET PO SCH (10:54)
[2023-04-19] MEDS ORDERED: MIDAZOLAM HCL 1 MG/ML 2ML VIAL ONE (11:43)
[2023-04-19] MEDS ORDERED: fentaNYL citrate PF 100 MCG/2 ML VIAL ONE ×2 (11:43→13:00)
--- NOTE | 2023-04-19 12:30 | History & Physical Bridge Note ---
Date of Service April 19, 2023 History & Physical Bridge Note I have examined the patient, reviewed the History & Physical and in the interval since the performance of the History & Physical I have noted the following changes of clinical significance: no changes noted
[2023-04-19] MEDS ORDERED: ONDANSETRON INJ 2 MG/ML 2 ML VIAL IV PRN ×2 (12:38→15:51)
[2023-04-19] MEDS ORDERED: ATROPINE SULFATE 0.1 MG/ML 10ML SYR IV PRN (12:38)
[2023-04-19] MEDS ORDERED: fentaNYL citrate PF 100 MCG/2 ML VIAL IV PRN (12:38)
[2023-04-19] MEDS ORDERED: ePHEDrine sulfate 50 MG/ML AMP IV PRN (12:38)
[2023-04-19] MEDS: TRANEXAMIC ACID 1,000 MG **IV Pre-op IV SCH (13:00)
[2023-04-19] MEDS: ceFAZolin 2000MG 2,000 MG/15 ML SYR IV SCH ×2 (13:14→20:50)
[2023-04-19] MEDS ORDERED: LIDOCAINE 2% 2 ML VIAL/AMP(20MG/ML) INFIL ONE (13:31)
[2023-04-19] MEDS ORDERED: ONDANSETRON INJ 2 MG/ML 2 ML VIAL ONE (13:31)
[2023-04-19] MEDS ORDERED: PROPOFOL IV EMULSION 10 MG/ML 20 ML VIAL IV ONE ×2 (13:31→14:41)
[2023-04-19] MEDS ORDERED: PHENYLEPHRINE 100MCG/ML 10ML SYR IV ONE (13:32)
[2023-04-19] MEDS ORDERED: ePHEDrine sulfate 50 MG/5 ML SYR ONE (14:02)
[2023-04-19] MEDS: ROPIV 0.5% 246mg, Ketorolac 30mg, EPINEPHrine 0.5mg in NSS INFIL SCH (14:03)
[2023-04-19] MEDS ORDERED: KETOROLAC 30 MG/ML VIAL ONE (14:34)
[2023-04-19] MEDS: TRANEXAMIC ACID 1,000 MG **IV Intra-op IV SCH (14:34)
--- NOTE | 2023-04-19 14:47 | Post Operative Brief Note ---
Immediate Post Op Note v1 Date of Surgery April 19, 2023 Pre & Post Diagnosis Operation Date: 04/19/23 12:15 Pre-Op Diagnosis: Left hip osteoarthritis. Post-Op Diagnosis: Left hip osteoarthritis. I identified the patient and participated in the time-out.: Yes Procedure Operation Date: 04/19/23 12:15 Actual Procedures p Left Hip Replacement - Anterior Approach(Left) - Fabricio Fuller MD Surgeon Fabricio Fuller MD Drum Worker Scottie Brambila PAJayy Estimated Blood Loss 100 Findings Consistent with Post-Op Diagnosis
--- OUTSIDE RECORDS SUMMARY | 2023-04-19 14:55 | External Medical Summary | Summary of Care ---
Author Name Unknown Organization [facility] Address [address] [facility] [place] [address] Phone [phone] Care Team Providers Care Manager Air Name Role Phone Stan Ybarra MD Primary Care Provider [phone] Reason for Visit * Reason Comments Pre-op Clearance Encounter Details Date Type Department Care Team (Latest Contact Info) Description 04/13/2023 1:30 PM EST Office Visit Cardiology, [facility] [address] [place] [id number] Yana Joyce CRNP [address] [facility] [place] [address] Stenosis of prosthetic aortic valve, sequela*; History of transcatheter aortic valve replacement (TAVR); Chronic diastolic CHF (congestive heart failure) (HCC); HTN, goal below 140/90; LBBB (left bundle branch block); Preoperative cardiovascular examination Allergies Active Allergy Reactions Criticality Noted Date Comments Lisinopril Cough Low 03/11/2015 documented as of this encounter (statuses as of 04/13/2023) Medications Medication Sig Dispensed Refills Start Date End Date Status Acetaminophen 325 MG Oral Tablet Take 2 Tablets by mouth every 6 hours as needed for Pain. 0 Active Aspirin 81 MG Oral Tablet Delayed Release Take 1 Tab by mouth daily. 0 04/17/2020 Active Losartan Potassium 100 MG Oral Tablet (Cozaar)Indications:S econdary hypertension with goal blood pressure less than 140/90 TAKE ONE TABLET BY MOUTH EVERY DAY 90 Tablet 3 05/01/2022 Active Vitamin D3 125 MCG (5000 UT) Oral Capsule Take 1 Capsule by mouth in the morning and 1 Capsule in the evening. 0 Active amLODIPine Besylate 5 MG Oral Tablet (Norvasc)Indications: HTN, goal below 140/90 TAKE ONE TABLET BY MOUTH EVERY DAY 90 Tablet 3 07/17/2022 Active Fish Oil 1000 MG Oral Capsule Take 1 Capsule by mouth in the morning. 0 Active Atenolol 25 MG Oral Tablet (Tenormin)Indications :S/P aortic valve replacement,HTN, goal below 140/90 TAKE 1 TABLET BY MOUTH EVERY DAY IN THE MORNING 90 Tablet 1 10/15/2022 Active Amoxicillin 500 MG Oral Capsule (Amoxil) Take 4 capsules 1 hour prior to any dental work 4 Capsule 4 10/19/2022 Active metFORMIN HCl 1000 MG Oral Tablet (Glucophage)Indicatio ns:Type 2 diabetes mellitus with hemoglobin A1c goal of less than 7.0% (HCC) TAKE ONE TABLET BY MOUTH 2 TIMES A DAY WITH MORNING AND EVENING MEALS. 180 Tablet 2 01/14/2023 Active hydroCHLOROthiazide 25 MG Oral Tablet (Hydrodiuril)Indicati ons:HTN, goal below 140/90 Take 1 Tablet by mouth in the morning. 90 Tablet 3 02/11/2023 Active Atorvastatin Calcium 40 MG Oral Tablet (Lipitor)Indications: Dyslipidemia, goal LDL below 100 Take 1 Tablet by mouth in the morning. 90 Tablet 3 02/11/2023 Active documented as of this encounter (statuses as of 04/13/2023) Active Problems Problem Noted Date Diagnosed Date Stricture of artery 01/18/2023 Stenosis of prosthetic aortic valve 05/07/2022 Hypertensive heart disease w ith chronic diastolic congestive heart failure 11/30/2018 DM type 2, goal HbA1c < 7.5% 11/30/2018 Body mass index (BMI) of 40.0 to 44.9 in adult 0 09/19/2018 Overview: Per Obesity protocol - Status post right hip replacement 07/21/2018 Osteoarthritis of right hip 03/25/2018 LBBB (left bundle branch block) 09/09/2011 Vitamin D deficiency 11/18/2010 S/P TAVR (transcatheter aortic valve replacement ) 09/02/2010 High triglycerides 11/13/2009 Dyslipidemia, goal LDL below 70 07/01/2009 AVR 04/20/2008 Chronic diastolic CHF (congestive heart failure) 04/18/2008 Overview: Acute decomensated due to aortic valve stenosis Congenital atresia and stenosis of aorta 009 ADVANCE DIRECTIVE INFORMATION 09/02/2004 Overview: No, Advance Directive brochure offered , patient declined. HTN, goal below 140/90 11/12/2001 documented as of this encounter (statuses as of 04/13/2023) Resolved Problems Problem Noted Date Diagnosed Date Resolved Date Morbid obesity with body mas s index of 45.0-49.9 in adult 11/30/2018 12/23/2018 Unspecified atrial fibrillation 11/30/2018 05/30/2019 Postoperative anemia due to acute blood loss 9 05/30/2019 Postoperative hypotension 07/21/2018 Body mass index (BMI) of 45. 0 to 49.9 in adult 04/18/2018 09/22/2018 Overview: Per Obesity protocol #1 Type 2 diabetes mellitus wit h hemoglobin A1c goal of less than 7.0% 11/28/2015 11/30/2018 Glucose intolerance (impaire d glucose tolerance) 06/19/2013 03/25/2018 Obesity, morbid (more than 1 00 lbs over ideal weight or BMI > 40) 05/07/2009 03/25/2018 Overview: Per Obesity Taxonomy ICD-10 update of inactive term Edema 08/28/2008 03/25/2018 Dermatitis due to plant 08/28/200811/09 Overview: history Dyslipidemia, goal to be determined 08/26/2008 07/01/2009 Heart valve replaced 08/06/2008 015 Overview: ICD-10 update of inactive term Acute posthemorrhagic anemia 04/23/2008 03/25/2018 BACKACHE NOS 09/17/2004 11/28/2018 Overview: acute Pityriasis versicolor 12/01/20012018 OBESITY, UNSPECIFIED 11/12/2001 010 Overview: Per Obesity Taxonomy documented as of this encounter (statuses as of 04/13/2023) Immunizations Name Administration Dates Next Due COVID-19, LNP-s, No Preserve , Lucas-sucrose, Ages 12+ (Pfizer) 04/01/2021,03/11/2021 PPD 11/10/2005 Pneumococcal Conjugate Vacc, 13 Valent (Prevnar) 01/05/2017 Pneumococcal Polysaccharide PPV23 (Pneumovax) TDAP (age 10 and older)(Boostrix) 07/14/2022, Zoster Vaccine Recombinant (Shingrix) 12/14/2017 ,07/06/2017 documented as of this encounter Social History Tobacco Use Types Packs/Day Years Used Date Smoking Tobacco: Never Passive Smoke Exposure: Past Smokeless Tobacco: Never Alcohol Use Standard Drinks/Week Comments Yes 0 (1 standard drink = 0.6 oz pure alcohol) rare once every couple of months PHQ-2 Answer Date Recorded PHQ-2 Score 0 10/02/2019 Hunger Vital Sign Answer Date Recorded Worried About Running Out of Food in the Last Ye ar Never true 10/02/2019 Ran Out of Food in the Last Year Never true 10/02/2019 Sex and Gender Information Value Date Recorded Sex Assigned at Not on file Gender Identity Not on file Sexual Orientation Not on file Job Start Date Occupation Industry Not on file Not on file Not on file documented as of this encounter Last Filed Vital Signs Vital Sign Reading Time Taken Comments Blood Pressure 134/72 04/13/2023 1:21 PM EST Pulse 96 04/13/2023 1:21 PM EST Temperature - - Respiratory Rate - - Oxygen Saturation 96% 04/13/2023 1:21 PM EST Inhaled Oxygen Concentration - - Weight 109.3 kg (241 lb) 04/13/2023 1:21 PM EST Height - - Body Mass Index 42.02 02/11/2023 7:24 AM EST documented in this encounter Functional Status Functional Status Response Date of Assess ment Are you deaf or do you have serious difficulty h earing? No 09/15/2022 Are you blind or do you have serious difficulty seeing, even when wearing glasses? No 09/15/2022 Do you have serious difficul ty walking or climbing stairs? (5 years old or older) No 09/15/2022 Do you have difficulty dress ing or bathing? (5 years old or older) No 09/15/2022 Because of a physical, menta l, or emotional condition, do you have difficulty doing errands alone such as visiting a doctor s office or shopping? (15 years old or older) No 09/16/19 Cognitive Status Response Date of Assessm ent Because of a physical, menta l, or emotional condition, do you have serious difficulty concentrating, remembering, or making decisions? 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 Emile Carrillo. S/p TAVR (valve in valve fashion with #23 mm Medtronic Evolut FX aortic valve), 09/15/[address] Henderson at [facility] Angiographically normal coronary arteries per diagnostic heart catheterization, [address] Borrero Repeat pre TAVR catheterization revealing normal coronary arteries via right radial access 08/12/2022 Left bundle branch block, chronic Chronic diastolic CHF Hypertension Dyslipidemia Type 2 diabetes Obesity HPI 72-year-old female presenting to the cardiology office today for preoperative risk stratification regarding upcoming hip surgery on 04/19/[address] Fuller at [facility]. Patient carries a history of a congenitally bicuspid aortic valve with severe aortic stenosis and initially underwent replacement in 2019. Unfortunately, patient developed severe prosthesis stenosis and underwent TAVR with Dr. Henderson on 09/15/2022. Echo dated 10/2022 showed stable TAVR gradients. Today the patient presents with her significant other. From a cardiac standpoint she is feeling well. Notes that she is very anxious about clearance for surgery. States that she has been waiting for this procedure for a long time and she is eager to have it done. She denies any exertional chest pain or unusual shortness of breath. No palpitations lightheadedness or dizziness. No orthopnea, PND, or increased lower extremity edema. No fever, chills, cough, hematochezia, melena, or hemoptysis. She states she is compliant with all medications, and offers no side effects. EKG showing normal sinus rhythm with a left bundle branch block, known and unchanged. Current Outpatient Medications Medication Sig Dispense Refill Acetaminophen 325 MG Oral Tablet Take 2 Tablets by mouth every 6 hours as needed for Pain. Aspirin 81 MG Oral Tablet Delayed Release Take 1 Tab by mouth daily. Losartan Potassium 100 MG Oral Tablet (Cozaar) TAKE ONE TABLET BY MOUTH EVERY DAY 90 Tablet 3 Vitamin D3 125 MCG (5000 UT) Oral Capsule Take 1 Capsule by mouth in the morning and 1 Capsule in the evening. amLODIPine Besylate 5 MG Oral Tablet (Norvasc) TAKE ONE TABLET BY MOUTH EVERY DAY 90 Tablet 3 Fish Oil 1000 MG Oral Capsule Take 1 Capsule by mouth in the morning. Atenolol 25 MG Oral Tablet (Tenormin) TAKE 1 TABLET BY MOUTH EVERY DAY IN THE MORNING 90 Tablet 1 metFORMIN HCl 1000 MG Oral Tablet (Glucophage) TAKE ONE TABLET BY MOUTH 2 TIMES A DAY WITH MORNING AND EVENING MEALS. 180 Tablet 2 hydroCHLOROthiazide 25 MG Oral Tablet (Hydrodiuril) Take 1 Tablet by mouth in the morning. 90 Tablet 3 Atorvastatin Calcium 40 MG Oral Tablet (Lipitor) Take 1 Tablet by mouth in the morning. 90 Tablet 3 Amoxicillin 500 MG Oral Capsule (Amoxil) Take 4 capsules 1 hour prior to any dental work 4 Capsule 4 No current facility-administered medications for this visit. Past Medical History: Diagnosis Date Congenital atresia and stenosis of aorta surgery 04/16 Dyslipidemia, goal to be determined HTN, goal below 140/90 Obesity, BMI not known Pityriasis versicolor Vitamin D deficiency Past Surgical History: Procedure Laterality Date BREAST BIOPSY Right 1973 benign CATHETERIZE LEFT HEART THRU SKIN 04/18/2008 LEFT HEART CATH, PERCUTANEOUS performed by ALF BORRERO at [facility] COLONOSCOPY, DIAGNOSTIC (RECTUM) 12/26/2008 diverticulosis repeat in 10 yrs COLONOSCOPY, DIAGNOSTIC (RECTUM) 11/14/2019 adenomatous polyps, repeat 3 yrs / COLONOSCOPY FLEXIBLE PROXIMAL DIAGNOSTIC performed by Zaria Hays MD at [facility] CORONARY ANGIOGRAPHY W/LEFT HEART CATH Right 08/12/2022 CORONARY ANGIOGRAPHY W/LEFT HEART CATH performed by El Campos DO at [facility] DENTAL SURGERY PROCEDURE NEC Dental Surgery Procedure INFORMATION 1974 Breast lump removed INFORMATION labor and delivery x4 , normal vag LIGATE/CUT OVIDUCT(S) Tubal Ligation REPLACE AORTIC VALVE, PERCUTANEOUS FEMORAL Bilateral 09/15/2022 REPLACE AORTIC VALVE, PERCUTANEOUS FEMORAL performed by David Henderson MD at [facility] REPLACE AORTIC VALVE, PERCUTANEOUS FEMORAL N/A 09/15/2022 REPLACE AORTIC VALVE, PERCUTANEOUS FEMORAL performed by Bulmaro Anderson MD at [facility] REPLACEMENT AORTIC VALVE, BYPASS WITH PROSTHETIC VALVE 04/20/2008 REPLACEMENT AORTIC VALVE performed by EMILE CARRILLO at [facility] TOTAL HIP REPLACEMENT & PROSTHESIS Right 07/21/2018 ARTHROPLASTY TOTAL HIP performed by Tamir Looney MD at [facility] Social History Tobacco Use Smoking status: Never Passive exposure: Past Smokeless tobacco: Never Vaping Use Vaping Use: Never used Substance Use Topics Alcohol use: Yes Comment: rare once every couple of months Drug use: No Review of patient's allergies indicates: Allergen Reactions Lisinopril Cough Review of Systems: See HPI for pertinent positives. All others negative, other than those noted in HPI. Physical Exam BP 134/72 | Pulse 96 | Wt 109.3 kg (241 lb) | LMP 02/20/2002 | SpO2 96% | BMI 42.02 kg/m | BSA 2.21 m General: No acute distress. A+Ox3. HEENT: Normocephalic. Atraumatic. Conjunctiva and sclera clear. NECK: No carotid bruits. No JVD. Carotid upstrokes are brisk. Heart: RRR. +S1/S2, +3/6 systolic murmur Lungs: Clear to auscultation. No wheezes, rhonchi, rales. Abdomen: Normal bowel sounds. Soft. Nontender. No masses or organomegaly. No abdominal bruits. Extremities: No edema. No clubbing or cyanosis. Pulses: radial=2/4, posterior tibial=2/4, dorsalis pedis = 2/4. NEURO: No focal deficits. PSYCH: Normal. Lab data/imaging study review: Echo 10/19/2022, one-month post TAVR The examination is adequate to evaluate the referral indication. The left ventricular cavity size is normal. The LV wall thickness is moderately increased (concentric). The septal motion is abnormal consistent with left bundle branch block. The regional left ventricular wall motion is otherwise normal. The qualitative LV ejection fraction is 55-59% (normal). The left ventricular diastolic function is mildly abnormal (grade I). The patient is status post TAVR with CoreValve prosthetic valve. Significant aortic valve prosthesis regurgitation is absent. The peak aortic valve velocity throught the TAVR is 2.9 m/sec. The mean systolic gradient through the TAVR is 20.2 mmHg. There is moderate calcification of the posterior mitral valve leaflet and annulus Moderate mitral regurgitation is present. Echo POD 1 TAVR 09/16/22 The examination is limited quality but adequate for evaluation of the referral indication. Calculated LV ejection Fraction = 50% (bi-plane method of discs). The left ventricular wall motion is normal. The RV size and systolic function are normal. The patient is status post TAVR with CoreValve prosthetic valve ([id number]). Aortic valve prosthesis stenosis is absent. Significant aortic valve prosthesis regurgitation is absent. Echo 05/05/2022 The examination is limited quality but adequate for evaluation of the referral indication. The qualitative LV ejection fraction is 55-59% (normal). The LV wall thickness is moderately increased (concentric). There is an aortic valve bioprosthetic present. The aortic valve prosthesis systolic gradients are abnormal for this type prosthesis with a peak velocity 411cm/sec, mean gradient 36mmHg, and dimensionless index of 0.13 suggesting significant obstruction. Moderate mitral regurgitation is present. Compared to last available study changes are noted as follows: Significant bioprosthetic aortic valve stenosis now present, moderate mitral regurgitation now present. Ao V2 max: 411.9 cm/sec Ao mean P.3 mmHg SKYLAR(I,D): : 0.45 cm2 Echo 05/2021 The examination is adequate to evaluate the referral indication. The left ventricular cavity size is normal. The LV wall thickness is moderately increased (concentric). The left ventricular wall motion is normal. The qualitative LV ejection fraction is 55-59% (normal). The left ventricular diastolic function is mildly abnormal (grade I). There is an aortic valve bioprosthetic present. There is moderate aortic valve prosthesis stenosis, There is moderate mitral annular calcification. Mild mitral regurgitation is present. The left atrium is mildly enlarged (35-41 ml/m^2). There is no evidence of pulmonary hypertension. Ao V2 max: 347.3 cm/sec Ao mean P.6 mmHg SKYLAR(I,D): 0.84 cm2 Impression/Plan: This is a 72 year old female who is being evaluated in the cardiology office for ongoing care/risk management for the below diagnoses. 1. Stenosis of prosthetic aortic valve 2. S/P TAVR -H/o congenitally bicuspid aortic valve with severe aortic stenosis, status post aortic valve replacement with a #23 mm Ramos 2 bioprosthetic, 04/20/[address] Emile Carrillo. -Severe stenosis of bioprosthetic aortic valve, s/p TAVR (valve in valve fashion with #23 mm Medtronic Evolut FX aortic valve), 09/15/[address] Henderson -Normal Cors per pre-TAVR cath, 08/2022 -TAVR gradients on most recent echo stable. -NYHA class 1-2 1. Antibiotics are needed for all dental work: Amoxicillin 2g- Take 4 capsules 1 hour prior to any dental work 2. ASA 81 mg daily continued indefinitely. 3. Chronic diastolic CHF (congestive heart failure) (HCC) -Euvolemic on exam. 4. HTN, goal below 140/90 -Controlled today in office. Notes home blood pressures in the 120 systolic. -Continue multidrug antihypertensive regimen as ordered. 5. LBBB -Chronic, no evidence of progressive conduction system disease. -EKG today showing NSR with LBBB, known and unchanged. 6. Preoperative cardiovascular risk stratification In terms of preop risk assessment, per Roberto Carlos Criteria, patient was counseled that she would be placedat a low to moderate risk (less than 6.6%) for any adverse perioperative cardiovascular events associated with hip surgery. Most recent echo reviewed with Dr. Henderson, results were deemed acceptable.Normal coronary arteries per cath 08/2022. Patient is on a good medication regime and no other cardiac testing or interventions would further lower that risk. Patient states she understands and is accepting of that risk and wishes to proceed with surgery. Recommend continuation aspirin and beta-heydi perioperatively. The patient agrees to the above plan and will call with additional questions or concerns. ER with all emergencies advised. Follow Up: Return in about 3 months (around 07/14/2023). I spent a total of 30 minutes on the date of service in preparation, delivery, and documentation ofthe care provided to Gloria Myles excluding any time spent in the performance of separately billed services. JOSEPH Chapman, Department of Cardiology This chart was completed in part utilizing Marvin Speech Voice Recognition Software. Grammatical errors, random word insertions, prounoun errors, and incomplete sentences are an occasional consequence of this system due to software limitations, ambient noise, and hardware issues. Any formal questions or concerns about the content, text, or information contained within the body of this dictation should be directly addressed to the provider for clarification. documented in this encounter Nursing Notes * Nina Lara CMA - 04/13/2023 1:20 PM EST Examination Room: 7 Name: Gloria Myles Date of : (1950) Reason for Visit: pre op Interim Hospitalization(s):none Problems/Concerns: denied Chest Pain/SOB: denied My [facility] is a way you can talk to your provider online through e-mail. Would you like to sign up? I can activate it for you? ALREADY ACTIVE Patient was instructed to not get up on the exam table until directed and assisted by their provider; patient is to remain seated in the chair/ wheelchair/ exam table for fall prevention and safety reasons. Patient is aware to have assistance to step down off exam table with personnel. Patient voiced full comprehension of instructions. documented in this encounter Plan of Treatment Upcoming Encounters Date Type Department Care Team (Latest Contact Info) Description 05/17/2023 10:45 AM EDT Hospital Encounter ENDO [facility], Endoscopy Room [facility] [address] [facility] [place] [phone] Zaria Hays MD [address] [place] [address] 05/17/2023 10:45 AM EDT - 05/17/2023 11:15 AM EDT Surgery ENDO [facility], Endoscopy Room [facility] [address] [facility] [place] [phone] Zaria Hays MD [address] [facility] [place] [address] COLONOSCOPY FLEXIBLE PROXIMAL DIAGNOSTIC 07/14/2023 10:00 AM EDT Office Visit Cardiology, [facility] [address] [place] [address] Halley Shrestha PA-C [address] [facility] [address] 07/20/2023 9:40 AM EDT Office Visit [facility] [address] [place] [phone] Stan Ybarra MD [address] [place] [address] 11/03/2023 1:30 PM EDT Cardiac Studies Cardiac Studies, [facility] [address] [place] [address] 11/03/2023 3:00 PM EDT [facility] [address] [place] [address] David Henderson MD [address] [place] [facility] [place] [address] Scheduled Orders Name Type Priority Associated Diagnoses Orde r Schedule EKG EKG Routine Stenosis of prosthetic aortic valve, sequela History of transcatheter aortic valve replacement (TAVR) Chronic diastolic CHF (congestive heart failure) (HCC) HTN, goal below 140/90 LBBB (left bundle branch block) Preoperative cardiovascular examination Ordered: 04/13/2023 Scheduled Procedures Name Priority Associated Diagnoses Date/Ti me COLONOSCOPY FLEXIBLE PROXIMAL DIAGNOSTIC Recall History of colon polyps 05/17/2023 10:45 AM EDT Health Maintenance Due Date Last Done Comments DXA Scan 01/13/2020 01/12/2018, 01/08, 11/18/2009 Depression Screening 09/25/2020 09/26/2019 Pneumococcal Vaccine: 65+ Years (3 of 3 - PPSV23 or PCV20) 11/27/2020 01/05/2017, 11/28/2015 Albumin/Creatinine Ratio 12/13/2021 021, 12/13/2019, 12/02/2018, Additional history exists Mammogram 05/12/2022 05/12/2021, 04/08, 04/06/2019, Additional history exists COVID-19 Vaccine ( - season) 2022 04/01/2021, 03/11/2021 Influenza Vaccine (FLU shot) (#1) 2022 COLONOSCOPY-EVERY 3 YRS AGES 18-100 11/13/2022 11/14/2019, 11/14/2019, 12/26/2008 Diabetic Foot Exam 04/09/2023 04/08/2022, 0 10/03/2020, 11/30/2018, Additional history exists HbA1c 09/20/2023 03/22/2023, 02/08, 01/29/2023, Additional history exists Diabetic Eye Exam 01/19/2024 01/18/2023, 10/03/2020 GFR 01/27/2024 01/26/2023, 10/09, 09/17/2022, Additional history exists Lipid Panel 08/07/2027 08/06/2022, 05/10, 12/13/2020, Additional history exists DTaP,Tdap,and Td Vaccines (3 - Td or Tdap) 07/14/2032 07/14/2022, 05/31/2012, 03/28/2002, Additional history exists Zoster Vaccines Completed 12/14/2017, 07/06/2017 GARDASIL-HPV IMMUNIZATION SERIES Aged Out No longer eligible based on patient's age to complete this topic Hepatitis B Aged Out No longer eligi ble based on patient's age to complete this topic MENINGOCOCCAL (MENACTRA/MENVEO) Aged Out No longer eligible based on patient's age to complete this topic documented as of this encounter Medical Devices Implanted Type Area Pharmacology Professor Device Identifier Shelf Expiration Date Model / Serial / Lot Valve Aor Ramos Ii 23mm T505 - [id number] Implanted:Qty: 1 on 04/20/2008 at [facility] Tissue - Non Human N/A: Heart [employer] 12/11/2010 23-T505 / [id number] / Sut Steel 6 M654g - [id number] Implanted:Qty: 4 on 04/20/2008 at [facility] N/A: Chest DO NOT USE 02/09/2012 M654G / / [id number] Band Gianni 225-241 - [id number] Implanted:Qty: 2 on 04/20/2008 at [facility] N/A: Chest [employer] 225-241 / / [id number] Head Biolox C Taper 36/ 26 - [id number] Implanted:Qty: 1 on 07/21/2018 by Tamir Looney MD at [facility] Right: Hip GEORGE : ORTHOPAEDICS 05/09/2019 18-36-3 / / [id number] Hip Trident Jeb Cluster 56 - [id number] Implanted:Qty: 1 on 07/21/2018 by Tamir Looney MD at [facility] Right: Hip GEORGE : TRAUMA 02/23/2023 [id number] F / / [id number] Screw Acetabular 6.5mm [place] 20m - [id number] Implanted:Qty: 1 on 07/21/2018 by Tamir Looney MD at [facility] Right: Hip GEORGE : ORTHOPAEDICS 03/20/202320298709-2730 -1 / / [id number] Screw Bone Cancell 7889-6335-1 - [id number] Implanted:Qty: 1 on 07/21/2018 by Tamir Looney MD at [place] [facility] [place]: Hip GEORGE : ORTHOPAEDICS 01/18/[id number] -1 / / [id number] Trident Acetabular X3 0 36 F - [id number] Implanted:Qty: 1 on 07/21/2018 by Tamir Looney MD at [place] [facility] [place] Right: Hip GEORGE : ORTHOPAEDICS 05/20/2023 623-00-36 F / / [id number] Screw Acetabular 6.5mm [place] 25m - [id number] Implanted:Qty: 1 on 07/21/2018 by Tamir Looney MD at [place] [facility] [place] Right: Hip GEORGE : ORTHOPAEDICS 02/18/2021 [id number] -1 / / [id number] Hip Stem Secur Max Ang 127 9 - [id number] Implanted:Qty: 1 on 07/21/2018 by Tamir Looney MD at [place] [facility] [place] Right: Hip GEORGE : ORTHOPAEDICS 09/29/2021 [id number] S / / [id number] Valve Aortic Transcath Fx 23mm - [id number] Implanted:Qty: 1 on 09/15/2022 by David Henderson MD at [facility] [place] [employer] 02/24/2023 [id number] / / documented as of this encounter Visit Diagnoses Diagnosis Stenosis of prosthetic aortic valve, sequela- Primary History of transcatheter aortic valve replacement (TAVR) Chronic diastolic CHF (congestive heart failure) (HCC) Chronic diastolic heart failure HTN, goal below 140/90 Unspecified essential hypertension LBBB (left bundle branch block) Other left bundle branch block Preoperative cardiovascular examination Pre-operative cardiovascular examination History of colon polyps Personal history of colonic polyps documented in this encounter Advance Directives Latest Code Status on File Code Status Date Activated Date Inactivated Comments Full Code 09/15/2022 10:09 AM 09/18/2022 3:39 AM Question Answer Comments Discussion of Advance Directives occurred with: Not Discussed due to patient's condition Code Status History Code Status Date Activated Date Inactivated Comments Full Code 07/21/2018 2:13 PM 07/23/2018 3:50 PM This order reflects the patients wishes and were consensually agreed upon. Question Answer Comments Discussion of Advance Directives occurred with: Patient Does the patient have a Living Will? No Does the patient have Health Care Power of Avionics Engineer? No Full Code 04/20/2008 3:47 PM 04/24/2008 6:32 PM Full Code 04/18/2008 12:43 AM 04/20/2008 3:42 PM Full Code 04/17/2008 9:24 PM 04/18/2008 12:43 AM Care Teams Manager Air Relationship Specialty Start Date End Date Stan Ybarra MD [address] [place] [address] PCP - General 03/29/02 documented as of this encounter"
--- NOTE | 2023-04-19 15:00 | Fluoroscopy Report ---
FL hip LT 1V CLINICAL HISTORY: LEFT ANTERIOR HIPleft hip arthroplasty COMPARISON STUDY: CT 08/22/2018 FLUOROSCOPY TIME: 9.2 seconds FLUOROSCOPY IMAGES: 1 EXPOSURE DOSE: 2.67 mGy FINDINGS: Left hip arthroplasty demonstrates satisfactory alignment. No acute fracture, dislocation o r unexpected opaque foreign body. Expected postoperative soft tissue swelling with deep tissue air. IMPRESSION: Left hip arthroplasty with expected postoperative findings. ACT 112: Negative or not required by law. Electronically signed by: Rashaad Luciano M.D. 04/19/2023 2:58 PM
--- NOTE | 2023-04-19 15:27 | Anesthesiology Progress Note ---
Date of Service April 19, 2023 Anesthesia Post Procedure Vital Signs Vital Signs: Temp Pulse Resp BP BP Pulse Ox O2 Del Method 04/19/23 15:20 80 14 134/73 96 Room Air 04/19/23 15:10 82 23 112/70 99 Oxymask 04/19/23 15:01 97.2 F L 79 10 L 123/65 96 Oxymask 04/19/23 10:36 98.1 F 82 20 136/85 154/105 H 95 Room Air O2 Flow Rate 04/19/23 15:20 04/19/23 15:10 5 04/19/23 15:01 5 04/19/23 10:36 Transfer of Care Handoff Completed per policy Notes Mental Status: alert / awake / arousable and participated in evaluation Patient Amnestic to Procedure: Yes Nausea / Vomiting: adequately controlled Pain: adequately controlled Airway Patency, RR, SpO2: stable & adequate BP & HR: stable & adequate Hydration State: stable & adequate Neuraxial Anesthesia: was administered and sensory block is resolving Anesthetic Complications: no major complications apparent and Pt Satisfied with anesthetic care
[2023-04-19] MEDS ORDERED: bisacodyL 10 MG SUPP PR PRN (15:51)
[2023-04-19] MEDS ORDERED: PHARMACY GLYCEMIC MGMT CONSULT PRN (15:51)
[2023-04-19] MEDS ORDERED: MAGNESIUM HYDROXIDE SUSP 30 ML UDC PO PRN (15:51)
[2023-04-19] MEDS ORDERED: NALOXONE HCL 0.4 MG/1 ML VIAL/CARP IV PRN (15:51)
[2023-04-19] MEDS ORDERED: METOCLOPRAMIDE HCL INJ 5 MG/ML 2 ML VIAL IV PRN (15:51)
[2023-04-19] MEDS: SODIUM CHLORIDE 0.9% 1,000 ML IV SCH (16:00)
[2023-04-19] MEDS ORDERED: GLUCOSE 40% GEL 15 GM TUBE PO PRN (16:15)
[2023-04-19] MEDS ORDERED: GLUCAGON FOR INJ 1 MG VIAL IM PRN (16:15)
[2023-04-19] MEDS ORDERED: DEXTROSE 50% 50 ML SYRINGE IV PRN (16:15)
[2023-04-19] MEDS ORDERED: CARBOHYDRATES FOR HYPOGLYCEMIA PO PRN (16:15)
[2023-04-19] MEDS ORDERED: GLUCOSE 10 TAB/TUBE PO PRN (16:15)
[2023-04-19] MEDS: INSULIN ASPART PER UNIT CHARGE SC SCH (16:58)
--- NOTE | 2023-04-19 17:11 | Operative Report ---
Post Operative Report Pre & Post Diagnosis Operation Date: 04/19/23 12:15 Pre-Op Diagnosis: Left hip osteoarthritis. Morbid obesity BMI 43 Post-Op Diagnosis: Left hip osteoarthritis. Same I identified the patient and participated in the time-out.: Yes Procedure Operation Date: 04/19/23 12:15 Actual Procedures p Left Hip Replacement - Anterior Approach(Left) - Fabricio Fuller MD Surgeon Fabricio Fuller MD Computational Physicist Scottie Brambila PA-C Estimated Blood Loss 100 Findings Consistent with Post-Op Diagnosis severe degenerative changes. The patient had a morbidly obese body habitus which made the surgical approach difficult and added increased time to the surgical procedure. Specimens Femoral head and bone and cartilage fragments and capsular tissue remnants Indications components used: [employer] Polar cemented hip system: Acetabulum size 50 with 25 mm dome screw and Oreo Oxinium liner. Femur size 1 standard offset with 0 neck length 28 mm Oxinium inner dual mobility head. Description of Procedure Following satisfactory spinal anesthesia the patient was supine on the operating room table. The left leg was placed in the traction and device in the right leg in the well-leg brumfield. The patient had an extremely large and pendulous abdominal pannus which was taped up out of the wound. The leg was prepared with ChloraPrep and draped sterilely. Positioning was confirmed with fluoroscopy. A surgical timeout was performed. An anterior approach was performed in the interval between the sartorius and tensor muscles and deepened through a fairly large subcutaneous flap fat layer. Hemostasis was obtained. The tensor fascia was opened and the interval between the sartorius and tensor was explored. The circumflex femoral vessels were identified and coagulated. An anterior capsulotomy was performed exposing the arthritic femoral neck and head. Fluoroscopy was used to confirm femoral neck resection level which was completed and the arthritic femoral head was removed with some difficulty because of the patient's body habitus and the poor condition of the bone. The acetabular self-retaining retractor was placed. Acetabular preparation was completed with excision of labral and osteophytes and reaming under direct visi on. A 50 shell was impacted into a healthy bed in a position of 35 to 40 degrees of abduction and 25 degrees of anteversion confirmed with fluoroscopy. A dome screw was placed followed by the Oreo liner and a large inferior osteophyte was removed. Local anesthetic was placed and the wound was irrigated. The femur was placed in a position of external rotation extension and adduction. The femoral canal was identified broaching the canal was difficult because of the large body habitus and especially the large abdomen. The canal was prepared up to a size 1. A trial reduction with a standard offset neck and a 0 neck length inner dual mobility head was performed. Fluoroscopy showed very good orientation of the components good fit and fill of the proximal canal and christian of leg length and offset at the level of the lesser trochanter. The hip was dislocated. The trial component removed. A cement restriction plug was placed. The canal was curetted irrigated and dried. Third-generation cement technique was used to cement the final stem using Pratibha Z be cement. The same neck offset and head permanent implant were applied the hip was reduced and fluoroscopy confirmed similar findings. With very good cement technique. The wound was irrigated with 500 cc of experience irrigation. There was not much bleeding. The tensor fascia was closed with a running suture of 0 V-Loc. The subcutaneous fat was closed in multiple layers with 0 V-Loc. The superficial layer was closed with 3 oh strata fix. Dermabond Prineo and negative wound pressure VAC was applied. The patient was returned to her bed in stable condition. Note: Scottie ASHTON was present and assisted throughout due to the complicated nature of this case. He help with preparation and set up, he engineer first assistant throughout. He assisted with hemostasis and exposure throughout this difficult procedure. He also closed the fascial subcutaneous and skin layers and applied the postop dressing. I attest to the content of the Intraoperative Record and any orders documented therein. Any exceptions are noted below.
[2023-04-19] MEDS: DOCUSATE SODIUM 100 MG CAP PO SCH (20:39)
[2023-04-19] MEDS: amLODIPine BESYLATE 5 MG TAB PO SCH (20:39)
[2023-04-19] MEDS: metFORMIN HCL 500 MG TAB PO SCH (20:40)
[2023-04-19] MEDS: SENNA 8.6 MG TAB PO SCH (20:41)
[2023-04-19] MEDS: traMADol HCL 50 MG TABLET PO PRN (23:04)
[2023-04-20 07:17] LABS: Basophils # (auto) 0.04 K/uL (0.00-0.20); Basophils % (auto) 0.4 %; Eosinophils # (auto) 0.27 K/uL (0.00-0.50); Eosinophils % (auto) 2.6 %; Hematocrit (blood only) 32.8 % (37.0-47.0); Hemoglobin 11.2 g/dl (12.0-16.0); Immature Granulocytes # (auto) 0.06 K/uL (0.01-0.20); Immature Granulocytes % (auto) 0.6 %; Lymphocytes # (auto) 1.39 K/uL (1.20-3.40); Lymphocytes % (auto) 13.4 %; Mean Corpuscular Hemoglobin 29.7 pg (25.0-34.0); Mean Corpuscular Hgb Conc 34.1 g/dL (32.0-36.0); Mean Platelet Volume 9.2 fL (9.4-12.4); Monocytes # (auto) 0.72 K/uL (0.11-0.59); Monocytes % (auto) 6.9 %; Neutrophils % (auto) 76.1 %; Platelet Count 191 K/uL (130-400); RDW Coefficient of Variation 13.2 % (11.5-14.5); RDW Standard Deviation 41.4 fL (36.4-46.3); Red Blood Count 3.77 M/uL (4.20-5.40); White Blood Count 10.38 K/ul (4.8-10.8)
[2023-04-20 07:34] LABS: BUN Creatinine Ratio 28.2 (10-20); Calcium 8.7 mg/dl (8.6-10.3); Creatinine Clr Calc Pharmacy 86.4 ml/min; Est GFR (African American) 98.6 ml/min; Est GFR (Non-African American) 85.1 ml/min; Potassium 3.8 mmol/L (3.5-5.1)
--- NOTE | 2023-04-20 07:35 | Orthopedic Progress Note ---
Date of Service April 20, 2023 Assessment & Plan (1) Degenerative joint disease of left hip: Plan: Postop day 1 status post left anterior total hip arthroplasty. PT/OT protocols. Weightbearing as tolerated. DVT prophylaxis-aspirin p.o. twice daily, SCDs. Pain management as written. Labs pending this morning. DC planning-patient is planning for home health services upon discharge. Plan for discharge home today if progressing well through physical therapy (2) BMI 40.0-44.9, adult: Admission and Anticipated Discharge Date Admission Date: April 19, 2023 Subjective Postop day 1 Patient sitting up in her chair at the bedside. No complaints this morning. She states that her pain is controlled. She is at a 2/10 this morning. She states that the pain is not even close to what it used to be with her arthritis. She denies any shortness of breath, chest pain, lightheadedness. Overall she is feeling well and she is hoping to go home today. Physical Exam Physical Exam: Paloma dressing is clean, dry, and intact. Mild swelling around the incisional area itself into the anterior thigh. This is consistent with surgery. Left hip appears located.. Calves are soft and nontender. Neurovascular is intact. She has good dorsiflexion and plantarflexion of the left foot. Results & Data Vital Signs (Past 12 Hours) Vital Signs Temp Pulse Resp BP Pulse Ox O2 Del Method 04/20/23 03:00 36.8 C 94 H 19 152/94 H 92 Room Air 04/19/23 23:00 37.1 C 97 H 18 129/82 92 Room Air 04/19/23 19:58 37 C 74 14 151/85 H 93 Room Air
[2023-04-20] MEDS: LOSARTAN POTASSIUM 50 MG TAB PO SCH (08:08)
[2023-04-20] MEDS: ATENOLOL 25 MG TABLET PO SCH (08:08)
[2023-04-20] MEDS: hydroCHLOROthiazide 25 MG TAB PO SCH (08:08)
[2023-04-20] MEDS: MULTIVITAMIN TAB PO SCH (08:09)
[2023-04-20] MEDS: ASPIRIN 81 MG ECTAB PO SCH (08:10)
[2023-04-20] MEDS: ORTHO JOINT ANESTHETIC ONE (08:11)
--- NOTE | 2023-04-20 09:34 | Pharmacy Report ---
Pharmacy Glycemic Short Note 2 - Date of Service April 20, 2023 - Glycemic Short BSG Results (Last 24 hours): 04/19/23 04/19/23 04/19/23 10:29 15:05 16:54 Glucose POC Glucose 154 H 139 H 123 H 04/19/23 04/20/23 04/20/23 20:10 07:03 07:31 Glucose 140 H POC Glucose 169 H 169 H OUTPATIENT ANTIDIABETIC REGIMEN: * metformin 1000mg BID * HbA1c 6.7% (04/06/22) ASSESSMENT: * Gloria is a 72 YOF admitted status post total hip arthroplasty and a history of T2DM. Pharmacy has been consulted for glycemic management while admitted. * She does not appear to have received steroids, so basal insulin withheld. Fasting BSG acceptable * Novolog initiated at a weight based stress of 2 and metformin restarted. PLAN FOR INPATIENT GLYCEMIC CONTROL: * Hold outpatient oral diabetes medications * Basal insulin * hold * Bolus insulin * NovoLog per scale ACHS or Q6hrs while NPO * Goal Range: Low 110 mg/dL - High 140 mg/dL * Correction Factor: 20 mg/dL/unit * Nutritional / Prandial insulin per carb ratio of 1 unit per 7 grams CHO consumed
--- NOTE | 2023-04-22 09:29 | Discharge Summary ---
Date of Service April 22, 2023 Admission HPI Per Admitting Provider Patient is a morbidly obese 72-year-old female with a greater than 1 year history of left hip and groin pain. She has a history of known severe arthritis of the hip with pain 8 out of 10. She cannot tie her shoe and sock has limited range of motion and limited standing and walking tolerance which requires a cane. She had been scheduled for surgery in February of this year but her surgery was postponed because of a rising hemoglobin A1c. She has a history of type 2 diabetes. Her A1c has now improved and is in the low sevens and she has been cleared by both medicine and cardiology. She is a little admitted for elective hip replacement. Admission Exam Per Admitting Provider Physical Exam: Obese woman who appears to be her stated age. HEENT: NCAT, EOMI, PERRLA. Neck: Negative bruits Heart: Regular rate and rhythm 3/6 systolic murmur Lungs: Clear and present in all valle Abdomen: Obese soft nontender bowel sounds positive Extremities: Left hip is 5 mm long passive range of motion is 5 to 85 degrees flexion -15 degrees internal rotation all which reproduces groin pain. Neurological and vascular: Intact Principal Diagnosis Left Hip Osteoarthritis Discharge Data Allergies Allergy/AdvReac Type Severity Reaction Status Date / Time lisinopril AdvReac Mild Cough Verified 04/19/23 10:33 Procedures Performed Operation Date: 04/19/23 12:15 Actual Procedures p Left Hip Replacement - Anterior Approach(Left) - Fabricio Fuller MD Ordered Studies 04/19/23 12:15 FL hip LT 1V Routine Hospital Course (1) Degenerative joint disease of left hip: Patient: YANA ADDISON Admit Date: 04/19/23 MR#: [id number] Att Phy: Fabricio Fuller MD Acct ID: [id number] Sneha Phy: Stan Ybarra MD Date: 1950 Fam Phy: Age: 72 Location: 3E Sex: F Room/Bed: E319-1 cc: ~ *NOTICE TO RECEIVING LIBERTARIAN/AGENCY This information is strictly Confidential and protected under [place] law. [place] law prohibits you from making any further disclosure of this information unless further disclosure is expressly permitted by the written consent of the person to whom it pertains or is authorized by law. A general authorization for the release of medical or other information is not sufficient for this purpose. Hospital accepts no responsibility if the information is made available to any other person, INCLUDING THE PATIENT. Date of Service April 20, 2023 Assessment & Plan (1) Degenerative joint disease of left hip: Plan: Postop day 1 status post left anterior total hip arthroplasty. PT/OT protocols. Weightbearing as tolerated. DVT prophylaxis-aspirin p.o. twice daily, SCDs. Pain management as written. Labs pending this morning. DC planning-patient is planning for home health services upon discharge. Plan for discharge home today if progressing well through physical therapy (2) BMI 40.0-44.9, adult: Admission and Anticipated Discharge Date Admission Date: April 19, 2023 Subjective Postop day 1 Patient sitting up in her chair at the bedside. No complaints this morning. She states that her pain is controlled. She is at a 2/10 this morning. She states that the pain is not even close to what it used to be with her arthritis. She denies any shortness of breath, chest pain, lightheadedness. Overall she is feeling well and she is hoping to go home today. Physical Exam Physical Exam: Silvio dressing is clean, dry, and intact. Mild swelling around the incisional area itself into the anterior thigh. This is consistent with surgery. Left hip appears located.. Calves are soft and nontender. Neurovascular is intact. She has good dorsiflexion and plantarflexion of the left foot. Results & Data Vital Signs (Past 12 Hours) Vital Signs Temp Pulse Resp BP Pulse Ox O2 Del Method 04/20/23 03:00 36.8 C 94 H 19 152/94 H 92 Room Air 04/19/23 23:00 37.1 C 97 H 18 129/82 92 Room Air 04/19/23 19:58 37 C 74 14 151/85 H 93 Room Air Signed By: <Electronically signed by Fabricio Fuller MD> 04/20/23 0759 <Electronically signed by Scottie Brambila PA-C> 04/20/23 0735 Created: 04/20/23 0728 (2) BMI 40.0-44.9, adult: Total Time Total Time Spent Total Time Spent (In Minutes): 5 Discharge Plan Discharge Items Patient Disposition: Home - Home Health Services Reason For Visit: POST SURGICAL CARE Discharge Diagnosis: Left Hip Osteoarthritis Activity: Per Instructions section Weightbearing: Full weightbearing Non-emergency contact: Surgeon Call non-emergency contact if: you have any medication questions, your pain is not controlled, your temperature is above 101.5, your wound has increased redness and your wound has increased drainage Follow-up/Referrals: [facility] [Outside] (as per surgeon's office ) Fabricio Fuller MD [Surgeon] - (Follow up with Dr. Fuller or his PA in 2 weeks from the day of your surgery for your first post operative visit. ) Stan Ybarra MD [Primary Care Provider] - Diet: Carb Consistent or DM2 Addtl Attending Provider Instructions: DR. GAUTHIER POST-OP INSTRUCTIONS FOR TOTAL HIP ARTHROPLASTY PLEASE REVIEW PRIOR TO SURGERY Day of Surgery You will be admitted and meet the nursing and anesthesia team. Dr. Fuller will see you and sign your operative side. Anesthesia will place your spinal anesthetic in the pre-op area Your surgery will be performed and last approximately 1 2 hours. Upon waking, you will notice a dressing and ice pack on your hip. You will remain in the recovery room for 1 2 hours, then be transferred to your room in the ambulatory surgical area if you are to go home the same day as your surgery or transferred to the orthopedic floor if you will be staying overnight. Most of Dr. Gauthier total hip patients go home the same day as surgery. This depends on how well you feel. Patients generally seem to feel better in their own home environment, and the risk of exposure to bad bugs is much lower. (Your post-operative medications will be sent to your pharmacy approximately 1-2 days prior to your procedure) Day 1 post-op (if you have an overnight stay in the hospital) You will have bloodwork drawn in the morning Physical therapy will evaluate you in the morning. You will start getting out of bed and ambulating with a walker. They will instruct you on hip motion exercises. Use your cold packs as instructed. This will decrease swelling and minimize pain. services program manager will discuss your discharge plan. Discharge will generally be around 11am Day 1 post-op (all patients) You will be taking Aspirin 81mg twice for 4 weeks to decrease the risk of a blood clot. You will most likely have a drain and a SILVIO (superficial wound VAC) dressing post-operatively. This will keep your incision dry as well as aid in early healing. The batteries will wear out and the VAC will lose suction around day 6 - 7 post-op. At that time, you may turn off the device and disconnect from the dressing. You must keep the dressing on until your first post- operative visit with Dr. Fuller. If the dressing appears to be saturated, please call our office. Day 2 14 post-op You will have a home nurse visit to assess your status and remove your drain on post-op day 2. You are permitted to shower immediately with the VAC. Do not soak the dressing let the shower flow on your opposite side, and pat dry the plastic. Once the dressing has been removed, you may shower normally with the incision exposed. Do not rub the area simply let soapy water run over the incision and lightly pat dry. Therapy will begin on post-op day 3. Your therapy prescription will be sent to your home therapy company/therapist You should continue doing your home exercises Week 2 post-op and forward You will have your first post-op appointment 2 weeks after surgery which should have been scheduled for you by our office. This appointment will be to check your incision, progression of therapy and pain control. Xrays will be taken to evaluate the prosthesis. You will continue to use a cane or a walker until you feel safe enough to stop using it. You will have a 6-week post-op appointment which should have been scheduled for you by our office. Xrays will be taken to evaluate the prosthesis. You will continue to advance range of motion. By 3 to 4 months after surgery, you should have almost full range of motion and may resume most activities. You may have some pain around the hip with certain activities this is completely normal. You will be scheduled for a 1 year post-op appointment to assess your outcome (sooner if Dr. Fuller feels necessary). Pain: The immediate post-op period after hip replacement surgery can be painful. However, the degree and frequency of the pain is generally much less than knee replacement surgery. You should take your pain medicine as you need it, especially prior to physical therapy and bedtime. Your pain will decrease and you may transition to a milder pain medicine (with less side effects, such as Tylenol) as soon as possible. It is common to have pain at night that interferes with sleep this can last for several months. Pain medicines can cause nausea and constipation do not take more than you need. You may be prescribed one or more of the following MEDICATIONS: 1. Celebrex this controls inflammation and makes pain medications mor effective it will be taken once or twice a day 2. Tylenol a pain medicine that can help to decrease your pain you should take 1000mg three times a day 3. Tramadol a pain medicine that can be taken every 4-6 hours (instead of Oxycodone) as needed to control your pain 4. Oxycodone a VERY strong pain medicine that can be taken every 4-6 hours (instead of Tramadol) as needed to control your pain. This medication has the most side effects and is usually not necessary for hip replacements. 5. Aspirin 81mg blood thinning medication to help minimize the risk of development of blood clots unfortunate side effects of pain medicine include nausea and constipation if you experience these issues or have any questions about your post-op medications, call [facility] at for assistance/advice on how to manage these issues Hip replacement surgery does not require a lot of aggressive physical therapy. Learning to walk safely and obeying hip precautions are most important. While in the hospital, you will be shown a series of home exercises you should perform these exercises 3 4 times daily in addition to physical therapy. After the completion of home therapy (approx.. 2 weeks), most therapy exercises can be done on your own. You should walk several times a day. Try not to be standing for more than an hour at a time during the first 4 weeks post-op as you may experience more swelling. If you develop swelling, you need to elevate your legs/feet at or above the level of your heart. You may progress from a walker to a cane to walking independently as you feel comfortable. Unless it is an emergency, YOUR ARE NOT PERMITTED TO HAVE ANY DENTAL CLEANING/WORK UNTIL 3 MONTHS AFTER SURGERY. You will be required to take an antibiotic prior to any dental cleaning or dental work in order to prevent your joint prothesis from getting infected. This medication is a one time per visit dose to be taken one hour prior to appointment. You may call our office for this prescription or your dentist may be willing to prescribe the medication. Remember to contact [facility] at if you develop any signs of infection which include increased swelling, pain, redness, drainage from incision, warmth, fever, chills or severe pain unrelieved by pain medication. If you develop any chest pain or shortness of breath, you should proceed immediately to the nearest Emergency Room. It is normal to run a low-grade fever after surgery. If your fever is consistent at 101.0 or higher, you will need to contact the office. Stand-Alone Forms: My [facility] Medications and DC Order Prescriptions: Continued multivitamin [Daily Multi-Vitamin] Tablet 1 tab PO QAM losartan [Cozaar] 100 mg tablet 100 mg PO QAM atenolol [Tenormin] 25 mg tablet 25 mg PO QAM amlodipine [Norvasc] 5 mg tablet 5 mg PO QPM atorvastatin [Lipitor] 40 mg tablet 40 mg PO QAM metformin 1,000 mg tablet 1,000 mg PO BID hydrochlorothiazide 25 mg tablet 25 mg PO QAM cinnamon bark [Cinnamon] 500 mg Capsule 500 mg PO QAM Held aspirin [Go Low Dose Aspirin] 81 mg Tablet,Delayed Release (Dr/Ec) 81 mg PO HS Hold Instructions: YOU WILL BE TAKING YOUR ASPIRIN TWICE DAILY FOR 4 WEEKS PER 'S ANTICOAGULATION PROTOCOL. AFTER 4 WEEKS, YOU WILL RESUME YOUR ONCE DAILY DOSE OF ASPIRIN omega-3 fatty acids Capsule 1,000 mg PO BID Hold Instructions: HOLD FOR 1 WEEK, THEN YOU MAY RESUME Krames/Other Patient Handouts: After Hip Replacement: Home Safety, Hip Replace Home Recovery Admission Data Admit Date/Time: 04/19/23 14:51 Attending Provider: Fabricio Fuller Admit Provider: Fabricio Fuller Primary Care Provider: Stan Ybarra Other Providers: Christelle,Home Health Other Interventions: Discharge Summary Assessment (RN) Last Done: 04/20/23 09:07
== END 2023-04-20 11:33 | disposition home health service (06) ==
LOC: 3E 10:02 → ASU 10:02